=== PATIENT | female | born 1955 | race Caucasian/White ===

== ENCOUNTER 2016-10-31 09:50 | Outpatient (CLI) | payer MEDICARE | END 2016-10-31 09:51 | disposition home or self-care (01) | DX: M81.0 Age-related osteoporosis without current pathological fracture (principal); E55.9 Vitamin D deficiency, unspecified ==

== ENCOUNTER 2016-10-31 10:27 | Outpatient (CLI) | END 2016-10-31 10:28 | disposition home or self-care (01) ==

== ENCOUNTER 2016-12-02 08:00 | Outpatient (CLI) | payer MEDICARE | END 2016-12-02 23:59 | disposition home or self-care (01) | DX: M19.042 Primary osteoarthritis, left hand (principal); M19.032 Primary osteoarthritis, left wrist; M06.9 Rheumatoid arthritis, unspecified ==

== ENCOUNTER 2016-12-17 | Outpatient (CLI) | payer MEDICARE | END 2016-12-17 10:45 | disposition home or self-care (01) ==

== ENCOUNTER 2017-03-28 08:42 | Outpatient (CLI) | payer MEDICARE ==
--- NOTE | 2017-03-31 15:57 | Mammography Report ---
DIGITAL SCREENING MAMMOGRAM: 03/28/2017 CLINICAL INDICATION: A 61-year-old with family history of breast cancer, history of benign right deborah ast biopsy for screening. COMPARISON: 03/2015, 02/2014, 01/2013, 05/2012, 12/2011, 12/2010, 11/2009. TECHNIQUE: Routine CC and MLO projections were obtained of the breasts. FINDINGS: The breasts demonstrate fatty replacement bilaterally. Post-biopsy changes in the right u pper outer posterior breast are stable. No suspicious masses, clustered microcalcifications, or padma ons of architectural distortion are identified. IMPRESSION: BENIGN FINDINGS. RECOMMENDATION: Routine annual screening unless otherwise clinically indicated. BIRADS CATEGORY 2 - BENIGN FINDINGS. STANDARD QUALIFYING STATEMENTS 1. This examination was reviewed with the aid of Computer-Aided Detection (CAD). 2. A negative or benign imaging report should not delay biopsy if clinically suspicious findings are present. Consider surgical consultation if warranted. More than 5% of cancers are not identified by i maging. 3. Dense breasts may obscure an underlying neoplasm. JOB #: [id number] EXT JOB #:[id number]
== END 2017-03-28 08:43 | disposition home or self-care (01) ==
LOC: DI 08:42
PROVIDERS: ATTEND Physician Assistant
DX: Z12.31 Encounter for screening mammogram for malignant neoplasm of breast (principal); Z80.3 Family history of malignant neoplasm of breast
CPT/HCPCS: 77067

== ENCOUNTER 2017-06-05 17:31 | Outpatient (CLI) | payer MEDICARE ==
--- NOTE | 2017-06-05 18:05 | XRAY Preliminary Report ---
Exam: XR Hip w/Pelvis 2-3V LT IMPRESSION: Marked left hip degenerative joint disease similar to previous exam. [facility] SITE ID: [id number]
--- NOTE | 2017-06-05 18:08 | XRAY Report ---
EXAM: LEFT HIP AND PELVIS RADIOGRAPHY EXAM DATE: 06/05/2017 05:53 PM. HISTORY: LEFT HIP PAIN. COMPARISONS: 15 February 2016. TECHNIQUE: 1 view of the pelvis and 1 view of the hip. FINDINGS: Bones: No definite fracture or other bone lesion. Joints: Marked left hip joint space narrowing with prominent osteophytes and slight lateral subluxati on versus widened teardrop due to joint effusion. Minimal joint space narrowing in the right hip. Unr emarkable SI joints and pubic symphysis. Degenerative joint and disk disease in lower lumbar spine. Soft Tissues: Large amount of stool. IMPRESSION: Marked left hip degenerative joint disease similar to previous exam. [facility] Referring Provider Line: [phone] SITE ID: [id number]
== END 2017-06-05 17:32 | disposition home or self-care (01) ==
LOC: DI 17:31
PROVIDERS: ATTEND Physician Assistant
DX: M25.552 Pain in left hip (principal); M16.12 Unilateral primary osteoarthritis, left hip

== ENCOUNTER 2017-08-12 12:55 | Outpatient (CLI) | payer MEDICARE ==
[2017-08-12 18:17] LABS: BILIRUBIN,URINE NEGATIVE (NEGATIVE)
[2017-08-12 18:30] LABS: UA CHARGE (STRIP ONLY) YES; UR CULTURE IF IND NOT INDICATED
== END 2017-08-12 12:56 | disposition home or self-care (01) ==
LOC: LAB.F 12:55
PROVIDERS: ATTEND Physician Assistant
DX: R30.0 Dysuria (principal)
CPT/HCPCS: 81001; 81003; 87086

== ENCOUNTER 2017-09-16 23:29 | Observation (INO) | payer MEDICARE ==
--- NOTE | 2017-09-16 23:48 | ED Physician Documentation ---
PD HPI CHEST PAIN - Stated complaint Stated Complaint: CHEST PAIN - Chief complaint Chief Complaint: Cardiac - History obtained from History obtained from: Patient - History of Present Illness Timing - onset: How many days ago (She has had left-sided chest pain radiating into the left shoulder and back intermittently for the last 3 or 4 days and has become stronger and more consistent the last few hours this evening. It was not strictly exertionally related. There is no pleuritic component though. She has not had any cough nor shortness of breath.) Timing - onset during: Light activity Timing - details: Still present (stronger and more consistent the past few hours this evening.), Intermittant Quality: Pressure, Aching. No: Sharp, Stabbing Location: Left chest Radiation: Back, Left upper extremity. No: Jaw Improved by: No: Rest (is having it at rest at times as well, particularly this evening.) Worsened by: Exertion. No: Inspiration, Movement, Palpation Associated symptoms: General Weakness. No: Shortness of air, Diaphoresis, Nausea, Feeling faint / dizzy, Palpitations, Cough Similar symptoms before: Diagnosis (had enlarged heart and angina years ago, which improved. Sees Dr. Wesley, [facility]. Had ECHO done in his office in the past year which was okay. Had stress test many years ago. No recent chest pain problems.) Recently seen: Not recently seen Review of Systems Constitutional: denies: Fever, Chills, Myalgias Nose: denies: Rhinorrhea / runny nose, Congestion Throat: denies: Sore throat Cardiac: reports: Chest pain / pressure. denies: Palpitations, Pedal edema, Calf pain Respiratory: denies: Dyspnea, Cough GI: denies: Abdominal Pain, Nausea, Vomiting : denies: Dysuria, Frequency Skin: denies: Rash, Lesions Musculoskeletal: reports: Extremity pain (severe arthritis, with joint pains commonly. No chest wall component in the past.) Neurologic: reports: Generalized weakness. 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 HEENT: Tonsil/Adenoidectomy - Present Medications Home Medications: Ambulatory Orders Medication Instructions Recorded Confirmed HYDROcodone/ACET 10/325 [[place] 10 1 each PO Q4-6H PRN 11/01/13 11/01/13 mg/325 mg] Morphine Sulfate [Ms Contin] 15 mg PO 11/01/13 11/01/13 Prednisolone 5 mg PO DAILY 11/01/13 11/01/13 Tofacitinib Citrate [Xeljanz] 5 mg PO DAILY 11/01/13 11/01/13 - Allergies Allergies/Adverse Reactions: Allergies Allergy/AdvReac Type Severity Reaction Status Date / Time tetanus toxoid, adsorbed AdvReac Intermediate Edema Verified 11/01/13 23:01 - Social History Does the pt smoke?: Yes Smoking Status: Current every day smoker Does the pt drink ETOH?: No - Family History Family history: reports: CAD - Immunizations Immunizations are current?: Yes - POLST Patient has POLST: No PD ED PE NORMAL - Vitals Vital signs reviewed: Yes - General General: Alert and oriented X 3, No acute distress, Well developed/nourished - HEENT HEENT: Moist mucous membranes, Pharynx benign - Neck Neck: Supple, no meningeal sign, No adenopathy, No JVD - Cardiac Cardiac: RRR, No murmur - Respiratory Respiratory: Clear bilaterally, Other (no chestwall tenderness) - Abdomen Abdomen: Soft, Non tender - Female Female : Deferred - Rectal Rectal: Deferred - Back Back: No CVA TTP - Derm Derm: Normal color, Warm and dry - Extremities Extremities: No deformity, No tenderness to palpate, Normal ROM s pain, No edema , No calf tenderness / cord, Other (extremity changes c/w arthritis noted in hands. ) - Neuro Neuro: Alert and oriented X 3, No motor deficit, Normal speech - Psych Psych: Normal mood. No: Normal affect (somewhat tearful and sad, minimizing symptoms. ) Results - Vitals Vitals: Vital Signs - 24 hr 09/16/17 09/17/17 09/17/17 23:47 00:42 00:51 Temperature 36.5 C Heart Rate 98 62 71 Respiratory 18 17 17 Rate Blood Pressure 155/130 H 151/82 H 135/70 H O2 Saturation 98 97 99 09/17/17 01:03 Temperature Heart Rate 61 Respiratory 17 Rate Blood Pressure 118/65 O2 Saturation 97 Oxygen O2 Source Room air - EKG (time done) 23:44 Rate: Rate (enter#) (83) Rhythm: NSR [place]: Normal Intervals: Normal WI QRS: Normal Ischemia: Normal ST segments, ST depression (laterally). No: ST elevation c/w ischemia Compare to prior EKG: Old EKG unavailable - Labs Labs: Laboratory Tests 09/17/17 09/17/17 09/17/17 00:55 00:55 00:55 WBC 4.2 L RBC 4.14 L Hgb 12.4 Hct 35.8 L MCV 86.5 MCH 30.1 MCHC 34.8 RDW 15.4 H Plt Count 174 MPV 8.2 Neut # 2.3 Lymph # 1.3 L [place] # 0.4 Eos # 0.1 Baso # 0.0 Absolute Nucleated RBC 0.00 Nucleated RBC % 0.0 Sodium 138 Potassium 2.6 L Chloride 99 L Carbon Dioxide 30 Anion Gap 9.0 BUN 17 Creatinine 0.7 Estimated GFR (MDRD) 85 L Glucose 102 H Calcium 9.1 Magnesium 1.8 Total Bilirubin 0.5 AST 24 ALT 16 Alkaline Phosphatase 78 Troponin I < 0.04 Total Protein 6.6 L Albumin 3.5 Globulin 3.1 Albumin/Globulin Ratio 1.1 Lipase 49 - Rads (name of study) chest Radiology: Prelim report reviewed (normal) PD MEDICAL DECISION MAKING - ED course Complexity details: reviewed results (Initial troponin is normal. ECG has mild possible ischemic changes laterally. I feel she needs to have evaluation for GA and unstable angina with serial ECG/troponin and stress testing. ), re- evaluated patient (pressure feeling improved with NTG x 1, will give repeated doses. ), considered differential, d/w patient, d/w portrait consultant (Dr. Montiel, Hospitalist) Departure - Departure Disposition: ED Place in Observation Clinical Impression: Chest pain, rule out acute myocardial infarction Chest pain Qualifiers: Chest pain type: precordial pain Qualified Code(s): R07.2 - Precordial pain Condition: Stable Record reviewed to determine appropriate education?: Yes
[2017-09-17] MEDS ORDERED: ASPIRIN CHEW 81 MG TABLET PO STA (00:41)
[2017-09-17] MEDS ORDERED: NITROGLYCERIN SL 0.4 MG TABLET SL STA ×2 (00:41→01:40)
[2017-09-17] MEDS ORDERED: NITROGLYCERIN SL 0.4 MG TABLET SL ONE (00:50)
[2017-09-17] MEDS ORDERED: ASPIRIN CHEW 81 MG TABLET ONE (00:50)
[2017-09-17 01:05] LABS: BASOPHILS % (AUTO) 0.9 %; EOSINOPHILS # (AUTO) 0.1 10^3/uL (0.0-0.7); EOSINOPHILS % (AUTO) 2.5 %; HCT - HEMATOCRIT 35.8 % (37.0-47.0); HGB - HEMOGLOBIN 12.4 g/dL (12.0-16.0); LYMPHOCYTES # (AUTO) 1.3 10^3/uL (1.5-3.5); LYMPHOCYTES % (AUTO) 31.7 %; MEAN CORPUSCULAR HEMOGLOBIN 30.1 pg (27.0-31.0); MEAN CORPUSCULAR HGB CONC 34.8 g/dL (32.0-36.0); MEAN CORPUSCULAR VOLUME 86.5 fL (81.0-99.0); MEAN PLATELET VOLUME 8.2 fL (7.9-10.8); MONOCYTES # (AUTO) 0.4 10^3/uL (0.0-1.0); MONOCYTES % (AUTO) 8.8 %; NEUTROPHILS # (AUTO) 2.3 10^3/uL (1.5-6.6); NEUTROPHILS % (AUTO) 56.1 %; RED BLOOD COUNT 4.14 10^6/uL (4.20-5.40); RED CELL DISTRIBUTION WIDTH 15.4 % (12.0-15.0); UNCORRECTED WHITE BLOOD COUNT 4.2 x10^3/uL; WHITE BLOOD COUNT 4.2 x10^3/uL (4.8-10.8)
[2017-09-17 01:14] LABS: ALBUMIN/GLOBULIN RATIO 1.1 (1.0-2.2); BILIRUBIN,TOTAL 0.5 mg/dL (0.2-1.0); CALCIUM 9.1 mg/dL (8.5-10.3); CREATININE 0.7 mg/dL (0.4-1.0); MAGNESIUM 1.8 mg/dL (1.7-2.8); POTASSIUM 2.6 mmol/L (3.5-5.0); TOTAL PROTEIN 6.6 g/dL (6.7-8.2)
[2017-09-17] MEDS ORDERED: POTASSIUM BICARB 25 MEQ TABLET PO STA (01:19)
--- NOTE | 2017-09-17 01:23 | XRAY Preliminary Report ---
Exam: XR CHEST 1 VIEW IMPRESSION: 1. No acute abnormality seen in the chest. [facility] SITE ID: [id number]
--- NOTE | 2017-09-17 01:26 | XRAY Report ---
EXAM: CHEST RADIOGRAPHY EXAM DATE: 09/17/2017 01:06 AM. CLINICAL HISTORY: Chest pressure tonight. COMPARISON: 04/11/2016. TECHNIQUE: 1 view. FINDINGS: Lungs/Pleura: No alveolar consolidation or pleural effusion. No pneumothorax. Mediastinum: Heart size is normal. Aortic atherosclerosis. Other: None. IMPRESSION: 1. No acute abnormality seen in the chest. [facility] Referring Provider Line: [phone] SITE ID: [id number]
[2017-09-17] MEDS ORDERED: POTASSIUM BICARB 25 MEQ TABLET PO ONE (01:37)
[2017-09-17] MEDS ORDERED: MORPHINE 2 MG/ML SYRINGE IVP PRN (01:47)
[2017-09-17] MEDS ORDERED: SODIUM CHLORIDE FLUSH 0.9% 10 ML SYRINGE IVP PRN (01:47)
[2017-09-17] MEDS ORDERED: HYDROcod/ACETAM 10 MG/325 MG TABLET PO PRN ×2 (01:47→10:18)
[2017-09-17] MEDS ORDERED: HYDROcod/ACETAM 5/325 MG TABLET PO PRN (01:47)
[2017-09-17] MEDS ORDERED: ACETAMINOPHEN 325 MG TABLET PO PRN (01:47)
[2017-09-17] MEDS ORDERED: ONDANSETRON 4 MG/2 ML VIAL IVP PRN (01:47)
[2017-09-17] MEDS ORDERED: NITROGLYCERIN SL 0.4 MG TABLET SL PRN (01:47)
[2017-09-17] MEDS ORDERED: ZOLPIDEM 5 MG TABLET PO PRN (01:47)
[2017-09-17] MEDS ORDERED: PROCHLORPERAZINE 10 MG/2 ML VIAL IVP PRN (01:47)
[2017-09-17] MEDS ORDERED: SODIUM CHLORIDE 0.9% 1,000 ML IV SCH (02:00)
[2017-09-17] MEDS ORDERED: POTASSIUM CHLORIDE 20 MEQ TABLET PO SCH (02:21)
--- NOTE | 2017-09-17 02:25 | HISTORY & PHYSICAL EXAMINATION ---
Chief Complaint - Chief Complaint Chief Complaint: Chest pressure History of Present Illness - Admitted From Admitted From:: Emergency department - History Obtained From Records Reviewed: Yes History obtained from: Patient Exam Limitations: None - History of Present Illness HPI Comment/Other: Patient is a 62-year-old female with a past medical history significant for rheumatoid arthritis, tobacco abuse, unspecified valvular heart disease and history of Takotsubo's cardiomyopathy who presented to the emergency department with a chief complaint of chest pressure. The patient states that she has been having symptoms of chest pressure off and on since for the past month. She states usually the pressure only lasts for a few minutes and then resolves on its own. She states that symptoms can come on while she is at rest or she is moving around. She denies any associated nausea, vomiting, diaphoresis, palpitations or shortness of air. The patient states that one month ago she stopped taking her rheumatoid arthritis medication in preparation for surgery of her hands and wrists. She states that ever since she stopped she has noticed that she has been having chest pressure off and on. She states that this evening the pressure was worse and lasted longer than normal. She states that this time the chest pressure lasted for a few hours. She states that she has not been feeling well for the last week and has been having off and on fevers. The patient was not sure if this all was related to her being off of her rheumatoid arthritis medications but given that this pressure was occurring in her chest she was concerned enough that she came into the emergency department today. Patient denies any headaches, blurred vision, runny nose, sore throat, nasal congestion, neck pain, difficulty swallowing, orthopnea, PND, increased lower extremity swelling, abdominal pain, diarrhea, constipation, urinary urgency, urinary frequency, dysuria, muscle aches, neck stiffness, back pain, recent unintentional weight loss, changes in appetite or any focal neurologic deficits. The patient does admit to chronic joint pain in her hands and her feet. She states it is much worse in her hands and she does take p.o. morphine at home to deal with her pain. On presentation to the emergency department the patient was afebrile she was mildly tachycardic and hypertensive however this improved with time in the emergency department. The patient was not in any respiratory distress. The patient's lab work did reveal a low potassium of 2.6 but otherwise showed a normal BNP and a negative troponin. The patient's WBC the patient's CBC did reveal a mild leukopenia. The patient did undergo a chest x-ray in the emergency department which showed no acute abnormality in the chest. The patient's EKG did show some ST depressions in the lateral leads concerning for possible ischemia. There was no previous EKG for comparison. Given the patient 's chest pressure and EKG changes it was felt most appropriate to place the patient in observation for chest pain rule out. The patient will undergo serial troponins, telemetry monitoring and a echocardiogram in the morning. The patient will also be scheduled for a nuclear stress test in the morning. 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 Social History Notes: The patient is originally from [place], [place]. She moved would [facility] 35 years ago. She lives in [place] with her . She has been to her for 40 years. They have 2 children together both boys. The patient does have disability secondary to her rheumatoid arthritis. 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 She is able to ambulate without any assistance device and is still fully independent. The patient smokes half a pack a day she previously smoked more than half a pack a day and has been smoking for over 40 years. The patient does not drink alcohol or use any illicit drugs. - Substance History Tobacco Details: Cigarettes - POLST Patient has POLST: No POLST Status: Full Code Meds/Allgy - Home Medications Home Medications: Ambulatory Orders Medication Instructions Recorded Confirmed HYDROcodone/ACET 10/325 [[place] 10 1 each PO Q4-6H PRN 11/01/13 11/01/13 mg/325 mg] Prednisolone 5 mg PO DAILY 11/01/13 11/01/13 Tofacitinib Citrate [Xeljanz] 5 mg PO DAILY 11/01/13 11/01/13 Morphine Sulfate [Ms Contin] 100 mg PO TID 09/17/17 09/17/17 - Allergies Allergies/Adverse Reactions: Allergies Allergy/AdvReac Type Severity Reaction Status Date / Time tetanus toxoid, adsorbed AdvReac Intermediate Edema Verified 11/01/13 23:01 Review of Systems - Other Findings Other Findings: A comprehensive review of systems was performed the pertinent positives and negatives are stated above in the HPI and the remainder of the review of systems is negative. Exam - Vital Signs Reviewed Vital Signs: Yes Vital Signs: Vital Signs x48h Temp Pulse Resp BP Pulse Ox 09/17/17 02:12 67 17 110/58 L 100 09/17/17 01:49 56 L 18 107/61 98 09/17/17 01:03 61 17 118/65 97 09/17/17 00:51 71 17 135/70 H 99 09/17/17 00:42 62 17 151/82 H 97 09/16/17 23:47 36.5 C 98 18 155/130 H 98 - Physical Exam General Appearance: positive: No acute distress, Alert, Other (A lot of wrinkles appears older than her stated age) Eyes Bilateral: positive: Normal inspection, PERRL, EOMI, No lid inflammation, Conjunctivae nml, No scleral icterus ENT: positive: ENT inspection nml, Pharynx nml, Dry mucous membranes. negative : Purulent nasal drainage, Pharyngeal erythema, Oral lesions Neck: positive: Nml inspection, Thyroid nml, No JVD, Trachea midline. negative : Thyromegaly, Lymphadenopathy (R), Lymphadenopathy (L), Stiff neck, Carotid bruit, Tracheal deviation Respiratory: positive: Chest non-tender, No respiratory distress, Breath sounds nml. negative: Wheezes, Rales, Rhonchi Cardiovascular: positive: Regular rate & rhythm, No gallop, Systolic murmur Peripheral Pulses: positive: 2+ Abdomen: positive: Non-tender, No organomegaly, Nml bowel sounds, No distention. negative: Guarding, Rebound, Hepatomegaly Back: positive: Nml inspection. negative: CVA tenderness (R), CVA tenderness (L ) Skin: positive: Color nml, No rash, Warm. negative: Cyanosis, Pallor Extremities: positive: Other (Severe rheumatoid arthritis changes of hands and wrists bilaterally.) Neurologic/Psychiatric: positive: Oriented x3, CN's nml (2-12), Motor nml, Sensation nml, Mood/affect nml Conclusion/Plan - Problem List (1) Chest pain Conclusion/Plan: Patient presented with chest pressure that has been going on off and on for about a month but became significantly worse this evening. Patient states that symptoms occurred at rest with no associated symptoms. Symptoms lasted longer and were more severe than normal. Patient has risk factors of age and smoking. Patient had a negative troponin but did have ST depressions in the lateral leads on EKG. Patient placed in observation for chest pain rule out Plan: Serial troponins every 6 hours 2 Telemetry monitoring Echocardiogram Aspirin and Lipitor Lipid profile Nuclear stress test in the morning N.p.o. Qualifiers: Chest pain type: precordial pain Qualified Code(s): R07.2 - Precordial pain (2) Hypokalemia Conclusion/Plan: Patient presented with a potassium of 2.6. Looking back the patient's baseline potassium is usually in the low threes low normal. Patient does take potassium every other day. Patient denies any vomiting or diarrhea recently. Is unclear as to why the patient's potassium is decreased today. Given that patient was hypertensive on presentation and does have low potassium we will check cortisol and aldosterone/renin activity. Plan: Replace potassium with p.o. and IV potassium Monitor potassium (3) Rheumatoid arthritis Conclusion/Plan: Patient has severe rheumatoid arthritis with severe changes in her hands. The patient has been on numerous treatments in the past none of which has given her significant relief. The patient currently is off of treatment pending surgery. The patient does use extended release morphine and [place] for symptomatic control. Plan: We will continue patient's home dose of morphine and [place]. Qualifiers: Rheumatoid arthritis location: foot Laterality: bilateral (4) Prophylactic use of low molecular weight heparin for venous thromboembolism Conclusion/Plan: Patient will be placed on Lovenox for DVT prophylaxis while she is hospitalized. - Lab Results Lab results reviewed: Yes Fish Bones: 09/17/17 00:55 09/17/17 00:55 - Diagnostic Imaging Results Diagnostic Imaging Results: positive: Final report reviewed Diagnostic Imaging Results Comments: Chest x-ray Impression: No acute abnormality seen in the chest - EKG Results EKG Interpreted Independently: Yes EKG Findings: ST depressions in the lateral leads. Sinus rhythm Issues/Core Measures - Anticipated LOS Anticipated Stay Length: Less than 2 midnights - DVT/VTE - Prophylaxis VTE/DVT Prophylaxis med ordered at admit?: Yes
[2017-09-17] MEDS: NS W/20 MEQ KCL 1,000 ML IV SCH ×2 (03:21→11:04)
[2017-09-17] MEDS ORDERED: MORPHINE SULFATE 100 MG PO SCH (06:00)
[2017-09-17] MEDS ORDERED: SODIUM CHLORIDE FLUSH 0.9% 10 ML SYRINGE IVP SCH (06:00)
[2017-09-17 08:34] LABS: BASOPHILS % (AUTO) 0.7 %; EOSINOPHILS # (AUTO) 0.1 10^3/uL (0.0-0.7); EOSINOPHILS % (AUTO) 2.7 %; HCT - HEMATOCRIT 31.3 % (37.0-47.0); HGB - HEMOGLOBIN 10.9 g/dL (12.0-16.0); LYMPHOCYTES # (AUTO) 1.1 10^3/uL (1.5-3.5); LYMPHOCYTES % (AUTO) 33.2 %; MEAN CORPUSCULAR HEMOGLOBIN 30.2 pg (27.0-31.0); MEAN CORPUSCULAR HGB CONC 34.7 g/dL (32.0-36.0); MEAN CORPUSCULAR VOLUME 86.8 fL (81.0-99.0); MEAN PLATELET VOLUME 8.4 fL (7.9-10.8); MONOCYTES # (AUTO) 0.3 10^3/uL (0.0-1.0); MONOCYTES % (AUTO) 9.8 %; NEUTROPHILS # (AUTO) 1.8 10^3/uL (1.5-6.6); NEUTROPHILS % (AUTO) 53.6 %; RED BLOOD COUNT 3.61 10^6/uL (4.20-5.40); RED CELL DISTRIBUTION WIDTH 14.8 % (12.0-15.0); UNCORRECTED WHITE BLOOD COUNT 3.4 x10^3/uL; WHITE BLOOD COUNT 3.4 x10^3/uL (4.8-10.8)
[2017-09-17] MEDS ORDERED: ASPIRIN EC 81 MG TABLET PO SCH (09:00)
[2017-09-17] MEDS ORDERED: POLYETHYLENE GLYCOL 3350 17 GM PACKET PO SCH (09:00)
[2017-09-17] MEDS ORDERED: TOFACITINIB CITRATE 5 MG PO SCH (09:00)
[2017-09-17] MEDS ORDERED: ENOXAPARIN 40 MG/0.4 ML SYRINGE SUBQ SCH (09:00)
[2017-09-17] MEDS ORDERED: FAMOTIDINE 20 MG TABLET PO SCH (09:00)
[2017-09-17] MEDS ORDERED: predniSONE 5 MG TABLET PO SCH (11:00)
[2017-09-17] MEDS ORDERED: REGADENOSON 0.4 MG/5 ML SYRINGE IVP ONE (11:54)
--- NOTE | 2017-09-17 12:52 | Discharge Plan ---
Discharge Plan Disposition: 01 Home, Self Care Condition: Stable Diet: Cardiac Activity Restrictions: Activity as Tolerated Shower Restrictions: No Driving Restrictions: No Additional Instructions or Follow Up instructions: You were placed in the hospital because of chest pain that had been present off and for a month but worsened over the last day before coming here. While here the blood tests to make sure you were not having a heart attack were low and meant no acute heart attack right now. You were able to do a nuclear medicine stress test right before you left and the EKG portion of the test continues to be negative for the changes of a blocked heart artery BUT the reading for the nuclear medicine dye study of the heart if still pending. Make sure you and your primary care provider go over those results before you have surgery. We will not be sending you home on new medications. Please make an appointment to see your primary care provider in the next week. No Smoking: If you smoke, Please STOP! Call for help. Follow-up with: Heena Martines PA-C [Primary Care Provider] -
[2017-09-17 14:09] LABS: BILIRUBIN,TOTAL 0.5 mg/dL (0.2-1.0); BUN - BLOOD UREA NITROGEN 14 mg/dL (6-20); CALCIUM 8.7 mg/dL (8.5-10.3); CARBON DIOXIDE - CO2 28 mmol/L (21-32); CHLORIDE 102 mmol/L (101-111); CHOL/HDL RATIO 4.5 (<4.4); CHOLESTEROL 154 mg/dL; CREATININE 0.5 mg/dL (0.4-1.0); GFR - MDRD 125 (>89); GLUCOSE 78 mg/dL (70-100); HDL CHOLESTEROL 34 mg/dL; LDL/HDL RATIO 2.3 (<4.4); POTASSIUM 3.5 mmol/L (3.5-5.0); SODIUM 139 mmol/L (135-145); TOTAL PROTEIN 5.8 g/dL (6.7-8.2); TRIGLYCERIDES 206 mg/dL; VLDL CHOLESTEROL 41 mg/dL
[2017-09-17 15:55] VITALS: BP 120/58
--- NOTE | 2017-09-17 16:04 | Nuclear Medicine Prelim Report ---
Exam: NM MYOCARDIAL PERFUSION STR/RST IMPRESSION: 1. No convincing reversible perfusion defects. Mild apical thinning. 2. Left ventricular ejection fraction of 51%. 3. Normal segmental and global wall motion. 4. Normal left ventricular cavity size, no change with stress. [facility] The call report notification system was initiated by Dr. Aditya Mars at 15:57 hrs on 09/17/17. The above findings were discussed with Dr. Oscar by Dr. Aditya Mars at 16:02 hrs on 09/17/17. SITE ID: [id number]
--- NOTE | 2017-09-17 16:07 | Nuclear Medicine Report ---
EXAM: SINGLE-ISOTOPE PHARMACOLOGICAL STRESS TEST WITH REGADENOSON. SINGLE-ISOTOPE AND ONE-DAY REST/STRESS M YOCARDIAL PERFUSION SCANS WITH TOMOGRAPHIC IMAGING, QUANTITATIVE ANALYSIS, WALL MOTION ANALYSIS AND C ALCULATION OF EJECTION FRACTION. EXAM DATE: 09/17/2017 03:34 PM. CLINICAL HISTORY: Chest pain . COMPARISON: None. TECHNIQUE: After the intravenous administration of 10.1 mCi of Tc-99m sestamibi, a rest myocardial perfusion sca n was done with tomography. Motion correction was applied when appropriate. A pharmacological stress was performed with the infusion of 0.4 mg regadenoson per protocol. Accordin g to protocol, 33 mCi of Tc-99m sestamibi was injected for stress myocardial perfusion scan. Motion c orrection was applied when appropriate. Gated tomographic images were obtained for wall motion analysis and computation of left ventricular e jection fraction. FINDINGS: There is apical thinning noted. No convincing reversible perfusion defects. Wall motion analysis demonstrates no focal wall motion abnormality. The left ventricular end-diastolic volume is 72 cc. The left ventricular end-systolic volume is 35 cc . The left ventricular ejection fraction is calculated to be 51%. IMPRESSION: 1. No convincing reversible perfusion defects. Mild apical thinning. 2. Left ventricular ejection fraction of 51%. 3. Normal segmental and global wall motion. 4. Normal left ventricular cavity size, no change with stress. [facility] The call report notification system was initiated by Dr. Aditya Mars at 15:57 hrs on 09/17/17. The above findings were discussed with Dr. Oscar by Dr. Aditya Mars at 16:02 hrs on 09/17/17. Referring Provider Line: [phone] SITE ID: [id number]
[2017-09-17] MEDS ORDERED: ATORVASTATIN 40 MG TABLET PO SCH (21:00)
--- NOTE | 2017-09-18 06:51 | DISCHARGE SUMMARY ---
DATE OF ADMISSION: 09/17/2017 DATE OF DISCHARGE: 09/17/2017 PRIMARY CARE PROVIDER: Heena Martines PA-C DISCHARGE DIAGNOSES 1. Chest pain. 2. Hypokalemia. 3. Rheumatoid arthritis. PRINCIPAL PROCEDURES 1. Cardiac stress test with EKG portion being negative. However, nuclear medicine studies are pending and must be followed up in the outpatient setting with primary care provider. Reading to be done by [facility]. 2. Serial cardiac enzymes all negative. 3. Cortisol level 12.8. HOSPITAL COURSE: The patient is a 62-year-old female who smokes and is in a postmenopausal status. Eliel stevenson also has significant history of Takotsubo cardiomyopathy, rheumatoid arthritis, and unspecified nelson vular heart disease. She has been having chest pain off and on for a month that lasts for a few minut es and then resolves on its own. Pain is at rest or with exertion and not changed by either status. T here has been no nausea, no diaphoresis, no palpitations, no shortness of breath. A month ago she sto pped taking her rheumatoid arthritis medication in preparation for surgery on her hands and wrists. E sarah since she stopped taking her medication, she has noticed she is having chest pressure off and on. On the evening of admission, chest pressure was worse and lasted longer than normal so she came to [facility] emergency room. Initial EKG shows normal sinus rhythm, nonspecific ST-T wave changes. She was norm otensive, afebrile. Chest x-ray negative for acute infiltrates and cardiac enzymes were negative. She was placed in observation for evaluation of her chest pain because of her risk factors for coronary artery disease. Over the course of her stay, cardiac enzymes were negative. Blood pressure remained stable. Oxygenati on remained stable. Stress test was done. Nuclear medicine imaging studies are pending at the time of discharge and will be followed up with her primary care provider. DISCHARGE PHYSICAL EXAMINATION VITAL SIGNS: She is discharged in stable condition with a temperature of 36.8, pulse 68, blood pressu re 107/58, respirations 16, 99% on room air. GENERAL: She is a middle-aged female who looks much, much older than stated age. No acute distress wi th a frowning, depressed facies. Voice is low and hoarse with slightly phlegmy cough. NECK: Supple with shotty adenopathy. LUNGS: Occasional rhonchi that clear with a deep cough, but no increased respiratory effort. No right ventricular lift. CARDIAC: She has a regular rate and rhythm with a systolic murmur. ABDOMEN: Soft, nontender. She has bilateral femoral bruits. EXTREMITIES: Unfortunately, her hands and feet are remarkably destroyed in the digits from her rheuma toid arthritis. 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 She is asked to follow up with Heena Martines in preparation for her surgery. She will need to have t he nuclear medicine imaging study reviewed before she goes to surgery. [facility] There have been no changes in her medications at discharge. JOB #: [id number] EXT JOB #:[id number]
[2017-09-21 15:11] LABS: ALDO/PRA RATIO 5.7 Ratio (0.9-28.9)
== END 2017-09-17 14:33 | disposition home or self-care (01) ==
LOC: ED 23:29 → OBS 09-17 01:47
PROVIDERS: ADMIT Internal Medicine; ATTEND Specialist
DX: R07.89 Other chest pain (principal); E87.6 Hypokalemia; M06.9 Rheumatoid arthritis, unspecified; Z86.79 Personal history of other diseases of the circulatory system; G89.29 Other chronic pain; Z78.0 Asymptomatic menopausal state; M19.90 Unspecified osteoarthritis, unspecified site; Z79.891 Long term (current) use of opiate analgesic; F17.210 Nicotine dependence, cigarettes, uncomplicated; I51.7 Cardiomegaly
CPT/HCPCS: 36415; 71010; 78452; 80053; 80061; 82088; 82533; 83690; 83735; 83880; 84244; 84484; 85025; 93005; 93017; 93306; 96360; 96361; 99284; 99285; A9270; A9500; G0378; J2785; J7512

== ENCOUNTER 2018-01-21 08:42 | Outpatient (CLI) | payer MEDICARE ==
[2018-01-21 17:28] LABS: BASOPHILS % (AUTO) 0.7 %; EOSINOPHILS # (AUTO) 0.2 10^3/uL (0.0-0.7); EOSINOPHILS % (AUTO) 3.1 %; HGB - HEMOGLOBIN 12.5 g/dL (12.0-16.0); LYMPHOCYTES # (AUTO) 1.4 10^3/uL (1.5-3.5); MEAN CORPUSCULAR HEMOGLOBIN 28.7 pg (27.0-31.0); MEAN CORPUSCULAR HGB CONC 32.5 g/dL (32.0-36.0); MEAN CORPUSCULAR VOLUME 88.3 fL (81.0-99.0); MONOCYTES # (AUTO) 0.3 10^3/uL (0.0-1.0); MONOCYTES % (AUTO) 5.6 %; NEUTROPHILS % (AUTO) 61.6 %; PLT - PLATELET COUNT 212 10^3/uL (130-450); RED BLOOD COUNT 4.35 10^6/uL (4.20-5.40); RED CELL DISTRIBUTION WIDTH 15.9 % (12.0-15.0); WHITE BLOOD COUNT 4.8 x10^3/uL (4.8-10.8)
[2018-01-21 17:51] LABS: ALBUMIN 3.5 g/dL (3.2-5.5); ALBUMIN/GLOBULIN RATIO 1.1 (1.0-2.2); ALKALINE PHOSPHATASE 81 IU/L (42-121); ALT ALANINE AMINOTRANSFERASE 23 IU/L (10-60); AST ASPARTATE AMINOTRANSFERASE 27 IU/L (10-42); BILIRUBIN,TOTAL 0.3 mg/dL (0.2-1.0); BUN - BLOOD UREA NITROGEN 16 mg/dL (6-20); CALCIUM 8.9 mg/dL (8.5-10.3); CARBON DIOXIDE - CO2 33 mmol/L (21-32); CHLORIDE 98 mmol/L (101-111); CHOL/HDL RATIO 4.2 (<4.4); CHOLESTEROL 187 mg/dL; CREATININE 0.6 mg/dL (0.4-1.0); GFR - MDRD 101 (>89); GLUCOSE 82 mg/dL (70-100); HDL CHOLESTEROL 45 mg/dL; LDL CHOLESTEROL,CALCULATED 90 mg/dL; SODIUM 139 mmol/L (135-145); TOTAL PROTEIN 6.8 g/dL (6.7-8.2); VLDL CHOLESTEROL 52 mg/dL
== END 2018-01-21 08:43 | disposition home or self-care (01) ==
LOC: LAB.F 08:42
PROVIDERS: ATTEND Physician Assistant
DX: M81.0 Age-related osteoporosis without current pathological fracture (principal); E78.5 Hyperlipidemia, unspecified; M06.89 Other specified rheumatoid arthritis, multiple sites; I10 Essential (primary) hypertension
CPT/HCPCS: 36415; 80053; 80061; 82306; 83721; 85025

== ENCOUNTER 2018-03-13 12:21 | Outpatient (CLI) | payer MEDICARE ==
--- NOTE | 2018-03-13 16:18 | XRAY Report ---
TWO VIEW ABDOMEN: 03/13/2018 CLINICAL INDICATION: Pain. FINDINGS: Supine and upright views of the abdomen demonstrate a normal bowel gas pattern. Radiodensity in the upper abdomen likely represents an ingested pill. No definite nephrolithiasis is seen. Osseous structures demonstrate degenerative changes. IMPRESSION: NO EVIDENCE OF BOWEL OBSTRUCTION OR PERFORATION. TD: 03/13/2018 13:17
== END 2018-03-13 12:22 | disposition home or self-care (01) ==
LOC: DI 12:21
PROVIDERS: ATTEND Internal Medicine
DX: R10.11 Right upper quadrant pain (principal)
CPT/HCPCS: 74019

== ENCOUNTER 2018-03-31 11:28 | Outpatient (CLI) | payer MEDICARE ==
--- NOTE | 2018-04-02 17:37 | Mammography Report ---
DIGITAL BILATERAL DIAGNOSTIC MAMMOGRAM AND BILATERAL BREAST ULTRASOUND: 2017 HISTORY: Bilateral lateral breast pain, sister with breast cancer at age 48. BILATERAL MAMMOGRAPHY TECHNIQUE: Bilateral digital CC, MLO, and ML projections. COMPARISON: 03/28/2017, 04/21/2015, 03/07/2014, 01/27/2013, 06/25/2012, 2011, 08/28/2011, and 01/29/2011. FINDINGS: There is extensive fatty replacement of the breast tissue. There is no dominant mass, architectural distortion, skin thickening, suspicious microcalcifications or significant interval change. BILATERAL BREAST ULTRASOUND TECHNIQUE: Real-time scanning by the pension agent with saved static images reviewed. FINDINGS: The lateral breast in the area of pain was scanned bilaterally. There is no evidence of a cystic or solid mass, abnormal collections, distortion of fat planes or other abnormality. IMPRESSION: NEGATIVE BILATERAL MAMMOGRAPHY AND NEGATIVE BILATERAL BREAST ULTRASOUND. RECOMMENDATION: SUGGEST RETURN TO ROUTINE SCREENING IN 12 MONTHS AND CLINICAL FOLLOW-UP OF PAIN. BIRADS category 1 - NEGATIVE. STANDARD QUALIFYING STATEMENTS 1. This examination was reviewed with the aid of Computed-Aided Detection (CAD) . 2. A negative or benign imaging report should not delay biopsy if clinically suspicious findings are present. Consider surgical consultation if warranted. More than 5% of cancers are not identified by imaging. 3. Dense breasts may obscure an underlying neoplasm. BIRADS category 1 - NEGATIVE. TD: 03/31/2018 14:40 [place]
== END 2018-03-31 11:29 | disposition home or self-care (01) ==
LOC: DI 11:28
PROVIDERS: ATTEND Obstetrics & Gynecology
DX: N64.4 Mastodynia (principal); Z80.3 Family history of malignant neoplasm of breast
CPT/HCPCS: 76642; 77066

== ENCOUNTER 2018-04-06 09:25 | Outpatient (CLI) | payer MEDICARE ==
[2018-04-06 18:26] LABS: BASOPHILS % (AUTO) 0.7 %; EOSINOPHILS # (AUTO) 0.1 10^3/uL (0.0-0.7); EOSINOPHILS % (AUTO) 2.1 %; HGB - HEMOGLOBIN 13.1 g/dL (12.0-16.0); LYMPHOCYTES # (AUTO) 1.1 10^3/uL (1.5-3.5); MEAN CORPUSCULAR HEMOGLOBIN 29.9 pg (27.0-31.0); MEAN CORPUSCULAR HGB CONC 32.9 g/dL (32.0-36.0); MEAN CORPUSCULAR VOLUME 91.1 fL (81.0-99.0); MEAN PLATELET VOLUME 9.3 fL (7.9-10.8); MONOCYTES # (AUTO) 0.3 10^3/uL (0.0-1.0); MONOCYTES % (AUTO) 7.3 %; NEUTROPHILS # (AUTO) 2.9 10^3/uL (1.5-6.6); NEUTROPHILS % (AUTO) 64.9 %; PLT - PLATELET COUNT 173 10^3/uL (130-450); RED BLOOD COUNT 4.39 10^6/uL (4.20-5.40); RED CELL DISTRIBUTION WIDTH 15.9 % (12.0-15.0); WHITE BLOOD COUNT 4.5 x10^3/uL (4.8-10.8)
[2018-04-06 18:50] LABS: ALBUMIN 3.4 g/dL (3.2-5.5); ALBUMIN/GLOBULIN RATIO 0.9 (1.0-2.2); BILIRUBIN,TOTAL 0.7 mg/dL (0.2-1.0); CALCIUM 9.3 mg/dL (8.5-10.3); CREATININE 0.7 mg/dL (0.4-1.0)
== END 2018-04-06 09:26 | disposition home or self-care (01) ==
LOC: LAB.F 09:25
PROVIDERS: ATTEND Physician Assistant Medical
DX: R53.83 Other fatigue (principal); E87.6 Hypokalemia
CPT/HCPCS: 36415; 80053; 84443; 85025

== ENCOUNTER 2018-05-19 10:10 | Outpatient (CLI) | payer MEDICARE | END 2018-05-19 10:11 | disposition home or self-care (01) | LOC: LAB.F 10:10 | PROVIDERS: ATTEND Physician Assistant Medical | DX: E55.9 Vitamin D deficiency, unspecified (principal) | CPT/HCPCS: 36415; 82306 ==

== ENCOUNTER 2018-07-23 11:25 | Outpatient (CLI) | payer MEDICARE ==
[2018-07-23 17:41] LABS: BASOPHILS % (AUTO) 0.5 %; EOSINOPHILS # (AUTO) 0.1 10^3/uL (0.0-0.7); EOSINOPHILS % (AUTO) 1.2 %; HGB - HEMOGLOBIN 13.1 g/dL (12.0-16.0); LYMPHOCYTES % (AUTO) 18.4 %; MEAN CORPUSCULAR HEMOGLOBIN 30.8 pg (27.0-31.0); MEAN CORPUSCULAR HGB CONC 33.8 g/dL (32.0-36.0); MEAN PLATELET VOLUME 9.4 fL (7.9-10.8); MONOCYTES # (AUTO) 0.3 10^3/uL (0.0-1.0); MONOCYTES % (AUTO) 5.4 %; NEUTROPHILS # (AUTO) 3.9 10^3/uL (1.5-6.6); NEUTROPHILS % (AUTO) 74.5 %; PLT - PLATELET COUNT 175 10^3/uL (130-450); RED BLOOD COUNT 4.25 10^6/uL (4.20-5.40); RED CELL DISTRIBUTION WIDTH 15.7 % (12.0-15.0); WHITE BLOOD COUNT 5.2 x10^3/uL (4.8-10.8)
[2018-07-23 18:21] LABS: ALBUMIN 3.8 g/dL (3.2-5.5); ALBUMIN/GLOBULIN RATIO 1.2 (1.0-2.2); BILIRUBIN,TOTAL 0.6 mg/dL (0.2-1.0); CALCIUM 9.7 mg/dL (8.5-10.3); CREATININE 0.7 mg/dL (0.4-1.0); TOTAL PROTEIN 7.1 g/dL (6.7-8.2)
== END 2018-07-23 11:26 | disposition home or self-care (01) ==
LOC: LAB.F 11:25
PROVIDERS: ATTEND Physician Assistant Medical
DX: E87.6 Hypokalemia (principal); R10.13 Epigastric pain; R53.83 Other fatigue; Z51.81 Encounter for therapeutic drug level monitoring; Z79.899 Other long term (current) drug therapy
CPT/HCPCS: 36415; 80053; 82150; 83690; 84443; 85025

== ENCOUNTER 2018-08-05 08:00 | Outpatient (CLI) | payer MEDICARE | END 2018-08-05 08:01 | disposition home or self-care (01) | LOC: LAB.R 08:00 | PROVIDERS: ATTEND Physician Assistant Medical | DX: N39.0 Urinary tract infection, site not specified (principal) | CPT/HCPCS: 87086 ==

== ENCOUNTER 2018-08-07 20:01 | Outpatient (CLI) | payer MEDICARE ==
--- NOTE | 2018-08-08 15:58 | Ultrasound Report ---
Reason: FLANK PAIN,RIGHT, UTI ACUTE Procedure Date: 08/07/2018 Accession Number: [id number] / [id number] Procedure: US - Retroperitoneal CPT Code: FULL RESULT: EXAM: RENAL ULTRASOUND EXAM DATE: 08/07/2018 08:44 PM. CLINICAL HISTORY: FLANK PAIN,RIGHT, UTI ACUTE. COMPARISON: None. TECHNIQUE: Real-time scanning was performed with static images obtained. FINDINGS: Right Kidney: 9.4 x 5.4 x 4.9 cm. Normal echotexture with no stones, contour-deforming masses, or hydronephrosis. Left Kidney: 10.5 x 4.0 x 5.4 cm. No hydronephrosis or mass. There is a simple cyst measuring 1.1 cm in diameter. Bladder: Bilateral jets seen. The prevoid bladder volume was 111 cc. The postvoid bladder volume was 7 cc. Other: None. IMPRESSION: 1. No hydronephrosis bilaterally. Small simple cyst in the left kidney. RADIA
== END 2018-08-07 20:02 | disposition home or self-care (01) ==
LOC: DI 20:01
PROVIDERS: ATTEND Physician Assistant Medical
DX: R10.9 Unspecified abdominal pain (principal); N39.0 Urinary tract infection, site not specified; N28.1 Cyst of kidney, acquired
CPT/HCPCS: 76770

== ENCOUNTER 2018-09-08 10:47 | Outpatient (CLI) | payer MEDICARE ==
--- NOTE | 2018-09-08 11:25 | XRAY Report ---
Reason: PAIN IN RIGHT ANKLE AND JOINTS OF RIGHT FOOT Procedure Date: 09/08/2018 Accession Number: [id number] / [id number] Procedure: XR - Ankle 3 View RT CPT Code: FULL RESULT: EXAM: RIGHT ANKLE RADIOGRAPHY EXAM DATE: 09/08/2018 10:51 AM. CLINICAL HISTORY: Pain in right ankle and joints of right foot. No known injury. Patient with RA. COMPARISON: XR ANKLE COMPLETE MIN 3 VIEW 04/05/2009 9:39 AM. TECHNIQUE: 3 views. FINDINGS: Bones: No acute fracture of the ankle identified. There is mild degenerative spurring from the tips of the malleoli, and anterior and posterior tibial margins. Prior arthrodesis procedure of the first and second MTP joints, incompletely included. Joints: Normal. No effusion. No subluxations. The ankle mortise is normally aligned. Evaluation of the subtalar joint is limited on the provided lateral film due to projection. Soft Tissues: Normal. No soft tissue swelling. IMPRESSION: Degenerative changes as described. No acute fracture. RADIA
== END 2018-09-08 10:48 | disposition home or self-care (01) ==
LOC: DI 10:47
PROVIDERS: ATTEND Physician Assistant Medical
DX: M19.071 Primary osteoarthritis, right ankle and foot (principal)

== ENCOUNTER 2018-09-10 12:56 | Outpatient (CLI) | payer MEDICARE | END 2018-09-10 12:57 | disposition home or self-care (01) | LOC: LAB.F 12:56 | PROVIDERS: ATTEND Physician Assistant Medical | DX: M25.571 Pain in right ankle and joints of right foot (principal) | CPT/HCPCS: 36415; 84550 ==

== ENCOUNTER 2019-01-01 08:01 | Outpatient (CLI) | payer MEDICARE ==
--- NOTE | 2019-01-01 11:03 | Ultrasound Report ---
Reason: RIGHT UPPER QUADRANT PAIN Procedure Date: 01/01/2019 Accession Number: [id number] / [id number] Procedure: US - Abdomen Limited CPT Code: FULL RESULT: EXAM: ABDOMEN ULTRASOUND LIMITED, RUQ EXAM DATE: 01/01/2019 09:14 AM. CLINICAL HISTORY: Right upper quadrant pain. COMPARISON: 06/27/2015. TECHNIQUE: Real-time scanning was performed with static images obtained. FINDINGS: Liver: Hepatic parenchyma is echogenic, limiting evaluation of fine detail and underlying masses. Right lobe of the liver measures at least 19 cm. Main portal vein flow: Hepatopetal. Gallbladder: Surgically absent. Biliary System: CBD measures 9 mm. No intrahepatic or extrahepatic ductal dilatation when allowing for status post cholecystectomy. Other: None. IMPRESSION: Status post cholecystectomy with prominent CBD felt to be within normal limits in this setting. RADIA
== END 2019-01-01 08:02 | disposition home or self-care (01) ==
LOC: DI 08:01
PROVIDERS: ATTEND Family Medicine
DX: R10.11 Right upper quadrant pain (principal); Z90.49 Acquired absence of other specified parts of digestive tract
CPT/HCPCS: 76705

== ENCOUNTER 2019-02-03 13:43 | Outpatient (CLI) | payer MEDICARE ==
[2019-02-03 13:55] LABS: BASOPHILS % (AUTO) 0.7 %; EOSINOPHILS # (AUTO) 0.1 10^3/uL (0.0-0.7); EOSINOPHILS % (AUTO) 1.1 %; HGB - HEMOGLOBIN 12.6 g/dL (12.0-16.0); MEAN CORPUSCULAR HEMOGLOBIN 29.3 pg (27.0-31.0); MEAN CORPUSCULAR HGB CONC 32.9 g/dL (32.0-36.0); MEAN CORPUSCULAR VOLUME 88.8 fL (81.0-99.0); MEAN PLATELET VOLUME 8.5 fL (7.9-10.8); MONOCYTES # (AUTO) 0.3 10^3/uL (0.0-1.0); NEUTROPHILS # (AUTO) 4.4 10^3/uL (1.5-6.6); NEUTROPHILS % (AUTO) 76.2 %; PLT - PLATELET COUNT 190 10^3/uL (130-450); RED CELL DISTRIBUTION WIDTH 16.1 % (12.0-15.0); WHITE BLOOD COUNT 5.8 x10^3/uL (4.8-10.8)
[2019-02-03 14:14] LABS: ALBUMIN 3.6 g/dL (3.2-5.5); ALBUMIN/GLOBULIN RATIO 1.1 (1.0-2.2); BILIRUBIN,TOTAL 0.6 mg/dL (0.2-1.0); CALCIUM 9.3 mg/dL (8.5-10.3); CREATININE 0.7 mg/dL (0.4-1.0); TOTAL PROTEIN 6.9 g/dL (6.7-8.2)
== END 2019-02-03 13:44 | disposition home or self-care (01) ==
LOC: LAB 13:43
PROVIDERS: ATTEND Internal Medicine Cardiovascular Disease
DX: I42.0 Dilated cardiomyopathy (principal); R53.82 Chronic fatigue, unspecified
CPT/HCPCS: 36415; 80053; 83540; 84443; 84466; 85025

== ENCOUNTER 2019-04-19 13:30 | Outpatient (CLI) | payer MEDICARE ==
--- NOTE | 2019-04-20 08:39 | Mammography Report ---
Reason: ENCOUNTER FOR SCREENING MAMMOGRAM FOR MALIGNANT NE Procedure Date: 04/19/2019 Accession Number: [id number] / [id number] Procedure: TYRONE - Screening Mammo w/Mike CPT Code: FULL RESULT: EXAM: Screening Mammo w/Mike DATE: 04/19/2019 1:56 PM CLINICAL HISTORY: Screening encounter. History of right breast biopsy in 2010 with benign pathology. Family history of breast cancer in the mother at the age of 69 and the sister at the age of 50. TECHNIQUE: (B) - Bilateral CC and MLO views were obtained. A left laterally exaggerated CC view was obtained. COMPARISON: 03/31/2018 through 01/27/2013. PARENCHYMAL PATTERN: (A) - The breast(s) demonstrate(s) scattered fibroglandular densities. FINDINGS: A biopsy marker is seen in the right breast. There are coarse typically benign calcifications. There are no suspicious masses, calcifications, or areas of distortion. IMPRESSION: Benign findings. BI-RADS category 2. RECOMMENDATION: (ANNUAL) - Recommend routine annual screening mammography. BI-RADS CATEGORY: (2) - Benign Findings. STANDARD QUALIFYING STATEMENTS: 1. This examination was not reviewed with the aid of Computer-Aided Detection (CAD). 2. A negative or benign imaging report should not preclude biopsy if clinically suspicious findings are present. 3. Dense breasts may obscure an underlying neoplasm. 4. This examination was reviewed with the aid of 3D breast imaging (tomosynthesis).
== END 2019-04-19 13:31 | disposition home or self-care (01) ==
LOC: DI 13:30
PROVIDERS: ATTEND Family Medicine
DX: Z12.31 Encounter for screening mammogram for malignant neoplasm of breast (principal); Z80.3 Family history of malignant neoplasm of breast
CPT/HCPCS: 77063; 77067

== ENCOUNTER 2019-07-30 14:15 | Outpatient (CLI) | payer MEDICARE ==
[2019-07-30 14:44] LABS: CALCIUM 9.4 mg/dL (8.5-10.3); CREATININE 0.7 mg/dL (0.4-1.0)
== END 2019-07-30 14:16 | disposition home or self-care (01) ==
LOC: LAB 14:15
PROVIDERS: ATTEND Internal Medicine Cardiovascular Disease
DX: I10 Essential (primary) hypertension (principal)
CPT/HCPCS: 36415; 80048

== ENCOUNTER 2019-08-14 16:37 | Outpatient (CLI) | payer OTHER, MEDICARE | END 2019-08-14 16:38 | disposition short-term general hospital (02) | LOC: EMS 16:37 | PROVIDERS: ATTEND Surgery | DX: M54.2 Cervicalgia (principal); M54.9 Dorsalgia, unspecified; M25.551 Pain in right hip; M25.552 Pain in left hip; V59.50XA Passenger in pick-up truck or van injured in collision with unspecified motor vehicles in traffic accident, initial encounter; Y92.413 State road as the place of occurrence of the external cause | CPT/HCPCS: A0425; A0429 ==

== ENCOUNTER 2019-08-18 10:45 | Outpatient (CLI) | payer OTHER, MEDICARE ==
--- NOTE | 2019-08-19 10:24 | XRAY Report ---
Reason: PAIN IN UNSPECIFIED ANKLE JOINT, ANKLE PAIN Procedure Date: 08/18/2019 Accession Number: [id number] / [id number] Procedure: XR - Ankle 3 View LT CPT Code: FULL RESULT: EXAM: LEFT ANKLE RADIOGRAPHY EXAM DATE: 08/18/2019 11:27 AM. CLINICAL HISTORY: Pain in left ankle joint, ankle pain. COMPARISON: ANKLE 3 VIEW RT 09/08/2018 10:51 AM FOOT 3 VIEW LT 03/11/2015 4:16 PM XR ANKLE COMPLETE MIN 3 VIEW 04/05/2009 9:39 AM. TECHNIQUE: 3 views. FINDINGS: Bones: Generalized bone demineralization. Stable narrowing of the anterior diaphysis of the partially imaged fifth metatarsal. No acute fracture detected at the ankle. Ankle mortise appears approximated. Generalized soft tissue prominence. Minimal ankle joint effusion suggested. Subtalar articulation appears preserved. No subcutaneous radiopaque foreign bodies. IMPRESSION: Soft tissue prominence at the ankle. No fracture or subluxation detected. RADIA
== END 2019-08-18 10:46 | disposition home or self-care (01) ==
LOC: DI 10:45
PROVIDERS: ATTEND Nurse Practitioner Family
DX: M25.572 Pain in left ankle and joints of left foot (principal)

== ENCOUNTER 2020-01-04 20:19 | Outpatient (CLI) | payer MEDICARE ==
--- NOTE | 2020-01-04 22:15 | Ultrasound Report ---
Reason: PAIN IN LOWER LEFT LEG Procedure Date: 01/04/2020 Accession Number: [id number] / [id number] Procedure: US - Duplex Ext Veins Left CPT Code: Final Report FULL RESULT: EXAM: LEFT LOWER EXTREMITY VENOUS ULTRASOUND EXAM DATE: 01/04/2020 09:38 PM. CLINICAL HISTORY: PAIN IN LOWER LEFT LEG. COMPARISON: None. TECHNIQUE: Real-time sonographic vascular imaging was performed by the pivot end polisher through the lower extremity utilizing both color-flow and Doppler spectral analysis. Multiple internet sales representative static images were saved for review. FINDINGS: Common Femoral Vein (CFV): No evidence of thrombus. CFV-GSV Junction: No evidence of thrombus. Profunda Femoral Vein (PFV): No evidence of thrombus. Femoral Vein (FV) Prox: No evidence of thrombus. Femoral Vein (FV) Mid: No evidence of thrombus. Femoral Vein (FV) Dist: No evidence of thrombus. Popliteal Vein: No evidence of thrombus. Posterior Tibial Veins: No evidence of thrombus. Peroneal Veins: No evidence of thrombus. Other: None. IMPRESSION: No evidence for deep venous thrombosis. RADIA
== END 2020-01-04 20:20 | disposition home or self-care (01) ==
LOC: DI 20:19
PROVIDERS: ATTEND Nurse Practitioner Family
DX: M79.662 Pain in left lower leg (principal)

== ENCOUNTER 2020-01-12 08:02 | Outpatient (CLI) | payer MEDICARE ==
--- NOTE | 2020-01-12 09:47 | CT Report ---
Reason: ABD PAIN Procedure Date: 01/12/2020 Accession Number: [id number] / [id number] Procedure: CT - Abdomen/Pelvis WO CPT Code: Final Report FULL RESULT: EXAM: CT ABDOMEN AND PELVIS (CT KUB) EXAM DATE: 01/12/2020 08:19 AM. CLINICAL HISTORY: Abdominal pain. COMPARISONS: KUB 04/23/2016 8:47 AM. TECHNIQUE: Routine axial helical CT imaging was performed through the abdomen and pelvis without IV contrast. Reconstructions: Coronal and sagittal. In accordance with CT protocol optimization, one or more of the following dose reduction techniques were utilized for this exam: automated exposure control, adjustment of mA and/or KV based on patient size, or use of iterative reconstructive technique. FINDINGS: Lung Bases: [place] 10 mm subpleural nodule posterior right lung base. Posterior left lung base appears clear. Right Kidney/Ureter: Mild smooth cortical thinning. No hydronephrosis. Punctate vascular calcification in the midpole. No nephrolithiasis or ureteral stones identified. Left Kidney/Ureter: Minimal cortical thinning. No hydronephrosis or nephrolithiasis. There is a 14 mm medial midpole cyst. No ureteral stones identified. Other Solid Organs: No evident masses of the non-IV contrasted liver. Stable Lai's lobe, measured at 21 cm in length. Stable pneumobilia. Previous cholecystectomy. Stable mild prominence of the bile duct at 12 mm transversely. The non-IV contrasted spleen, pancreas, and adrenal glands appear grossly within normal limits. Peritoneal Cavity: No free fluid, free air or albin adenopathy. No bowel obstruction. Partially formed stool within the colon. Monte[place]o density consistent with a medicinal pill at the cecum. Unremarkable small bowel. No pathologically enlarged lymph nodes. Somewhat low-lying cecum, similar to previous. Pelvic Organs: The contour of the urinary bladder appears within normal limits. The uterus is absent. No cystic or mass lesions in either adnexa. Vasculature: No aneurysm of the abdominal aorta. Moderately heavy mural calcification. Other: Moderate degenerative changes at both hips, with joint space narrowing. IMPRESSION: No urinary tract stones or obstruction. Stable pneumobilia. No bowel obstruction. RADIA
== END 2020-01-12 08:03 | disposition home or self-care (01) ==
LOC: DI 08:02
PROVIDERS: ATTEND Nurse Practitioner Family
DX: R10.9 Unspecified abdominal pain (principal)
CPT/HCPCS: 74176

== ENCOUNTER 2020-03-14 15:20 | Outpatient (CLI) | payer MEDICARE ==
[2020-03-14 15:47] LABS: HGB - HEMOGLOBIN 11.7 g/dL (12.0-16.0); MEAN CORPUSCULAR HEMOGLOBIN 28.8 pg (27.0-31.0); MEAN CORPUSCULAR HGB CONC 31.6 g/dL (32.0-36.0); MEAN CORPUSCULAR VOLUME 91.1 fL (81.0-99.0); MEAN PLATELET VOLUME 9.7 fL (7.9-10.8); RED BLOOD COUNT 4.06 10^6/uL (4.20-5.40); RED CELL DISTRIBUTION WIDTH 14.1 % (12.0-15.0); WHITE BLOOD COUNT 4.1 x10^3/uL (4.8-10.8)
[2020-03-14 16:03] LABS: ALBUMIN 3.6 g/dL (3.2-5.5); ALBUMIN/GLOBULIN RATIO 1.1 (1.0-2.2); BILIRUBIN,TOTAL 0.7 mg/dL (0.2-1.0); CALCIUM 9.2 mg/dL (8.5-10.3); CREATININE 0.7 mg/dL (0.4-1.0); TOTAL PROTEIN 6.9 g/dL (6.7-8.2)
== END 2020-03-14 15:21 | disposition home or self-care (01) ==
LOC: LAB 15:20
PROVIDERS: ATTEND Internal Medicine Cardiovascular Disease
DX: R60.1 Generalized edema (principal); R06.02 Shortness of breath
CPT/HCPCS: 36415; 80053; 83880; 84443; 85027

== ENCOUNTER 2020-03-31 08:57 | Outpatient (CLI) | payer MEDICARE ==
--- NOTE | 2020-04-03 15:54 | DEXA Report ---
Reason: LONG-TERM USE OF SYSTEMIC STEROIDS Procedure Date: 03/31/2020 Accession Number: [id number] / [id number] Procedure: DEX - Dexa Spine and/or Hip CPT Code: Final Report FULL RESULT: PROCEDURE: Dexa Spine and/or Hip INDICATIONS: LONG-TERM USE OF SYSTEMIC STEROIDS TECHNIQUE: Dual energy x-ray absorptiometry (DXA) was performed on a trip.me System. Regions measured are the AP Spine, femoral neck, and if needed forearm. COMPARISON: DEXA 10/31/16 FINDINGS: Lumbar Spine: Bone Mineral Density 0.983 g/cm/cm,T score -1.6, compared to -2.1 in 2017. Left Hip: Bone Mineral Density 0.638 g/cm/cm,T score -2.9, compared to -2.7 on prior exam, demonstrating progressive osteopenia.. Left Femoral Neck: Bone Mineral Density 0.787 g/cm/cm, T score -1.8, compared to -1.3 on prior exam, demonstrating progressive osteopenia. (T score greater or equal to -1.0: NORMAL) (T score from -1.1 to -2.4: OSTEOPENIA) (T score less than or equal to -2.5 to: OSTEOPOROSIS) Impression: 1. Progessive osteopenia in the left hip and femoral neck compared to prior exam. Patients with diagnosis of osteoporosis or osteopenia should have regular bone mineral density assessment. For those eligible for Medicare, routine testing is allowed once every 2 years. Testing frequency can be increased for patients who have rapidly progressing disease or for those who are receiving medical therapy to restore bone mass. Reviewed by: Delmis Allison MD on 04/03/2020 3:52 PM PDT Approved by: Delmis Allison MD on 04/03/2020 3:52 PM PDT Station ID: [id number]
== END 2020-03-31 08:58 | disposition home or self-care (01) ==
LOC: DI 08:57
PROVIDERS: ATTEND Family Medicine
DX: Z12.31 Encounter for screening mammogram for malignant neoplasm of breast (principal); Z80.3 Family history of malignant neoplasm of breast; M85.88 Other specified disorders of bone density and structure, other site; M06.9 Rheumatoid arthritis, unspecified; Z79.52 Long term (current) use of systemic steroids
CPT/HCPCS: 77063; 77067; 77080

== ENCOUNTER 2020-03-31 08:59 | Outpatient (CLI) | payer MEDICARE ==
--- NOTE | 2020-04-03 09:55 | Mammography Report ---
BILATERAL DIGITAL SCREENING MAMMOGRAM 3D/2D: 03/31/2020 CLINICAL: Routine screening. Family history of breast cancer. Comparison is made to exams dated: 04/19/2019 mammogram, 03/31/2018 mammogram, 03/28/2017 mammogram, and [facility] There are scattered fibroglandular elements in b oth breasts. No significant masses, calcifications, or other findings are seen in either breast. There has been no significant interval change. IMPRESSION: NEGATIVE There is no mammographic evidence of malignancy. A 1 year screening mammogram is recommended. This exam was interpreted at Station ID: [id number]. NOTE: For mammograms, a report in lay terms will be sent to the patient. Approximately 15% of breast malignancies will not be visualized mammographically. In the management of a palpable breast mass, a negative mammogram must not discourage biopsy of a clinically suspicious lesion. Electronically Signed By: Blade Hernandez M.D. ddp/penrad:03/31/2020 12:55:50 ACR BI-RADS Category 1: Negative 3341F PARENCHYMAL PATTERN: (A) - The breast(s) demonstrate(s) scattered fibroglandular densities. BI-RADS CATEGORY: (1) - 1 RECOMMENDATION: (ANNUAL) - Recommend routine annual screening mammography. [id number] 1 year screening LATERALITY: (B)
== END 2020-03-31 09:00 | disposition home or self-care (01) ==
LOC: DI 08:59
DX: Z12.31 Encounter for screening mammogram for malignant neoplasm of breast (principal); Z80.3 Family history of malignant neoplasm of breast
CPT/HCPCS: 77063; 77067

== ENCOUNTER 2020-04-08 09:52 | Outpatient (CLI) | payer MEDICARE | END 2020-04-08 09:53 | disposition home or self-care (01) | LOC: LAB.S 09:52 | PROVIDERS: ATTEND Internal Medicine Critical Care Medicine | DX: R91.1 Solitary pulmonary nodule (principal) | CPT/HCPCS: 36415; 81599; 86480; 86612; 86635; 86698 ==

== ENCOUNTER 2020-07-28 14:43 | Outpatient (CLI) | payer MEDICARE ==
--- NOTE | 2020-07-28 15:54 | XRAY Report ---
PROCEDURE: Chest 2 View X-Ray INDICATIONS: PLEURODYNIA TECHNIQUE: 2 view(s) of the chest. COMPARISON: Chest x-ray 09/17/2017 FINDINGS: Surgical changes and devices: None. Lungs and pleura: Minimal bilateral costophrenic angle blunting, slightly more prominent when compare d to 2017.. Unchanged right hemidiaphragm elevation. Mediastinum: Mediastinal contours are normal. Heart size is normal. Bones and chest wall: No suspicious bony abnormalities. Soft tissues appear unremarkable. IMPRESSION: Slightly more prominent appearance of costophrenic angle blunting bilaterally, possibly related to trace effusions versus scarring. Reviewed by: Delmis Allison MD on 07/28/2020 3:53 PM PDT Approved by: Delmis Allison MD on 07/28/2020 3:53 PM PDT Station ID: [id number]
== END 2020-07-28 14:44 | disposition home or self-care (01) ==
LOC: DI 14:43
PROVIDERS: ATTEND Physician Assistant
DX: R07.81 Pleurodynia (principal)
CPT/HCPCS: 71046

== ENCOUNTER 2021-03-28 14:36 | Outpatient (CLI) | payer MEDICARE, MEDICAID ==
--- NOTE | 2021-03-29 13:29 | Mammography Report ---
BILATERAL DIGITAL SCREENING MAMMOGRAM 3D/2D: 03/28/2021 CLINICAL: Routine screening. Comparison is made to exams dated: 03/31/2020 mammogram, 04/19/2019 mammogram, 03/31/2018 ultrasound, 03/31 mammogram, 03/31/2018 ultrasound, and 03/28/2017 mammogram - [facility]. There a re scattered fibroglandular elements in both breasts. No significant masses, calcifications, or other findings are seen in either breast. There has been no significant interval change. IMPRESSION: NEGATIVE There is no mammographic evidence of malignancy. A 1 year screening mammogram is recommended. This exam was interpreted at Station ID: [id number]. NOTE: For mammograms, a report in lay terms will be sent to the patient. Approximately 15% of breast malignancies will not be visualized mammographically. In the management of a palpable breast mass, a negative mammogram must not discourage biopsy of a clinically suspicious lesion. Electronically Signed By: Blade Hernandez M.D. ddhuma/marc:03/28/2021 15:38:21 ACR BI-RADS Category 1: Negative 3341F PARENCHYMAL PATTERN: (A) - The breast(s) demonstrate(s) scattered fibroglandular densities. BI-RADS CATEGORY: (1) - 1 RECOMMENDATION: (ANNUAL) - Recommend routine annual screening mammography. [id number] 1 year screening LATERALITY: (B)
== END 2021-03-28 14:37 | disposition home or self-care (01) ==
LOC: DI 14:36
PROVIDERS: ATTEND Family Medicine
DX: Z12.31 Encounter for screening mammogram for malignant neoplasm of breast (principal)

== ENCOUNTER 2021-04-10 09:02 | Outpatient (CLI) | payer MEDICARE, MEDICAID ==
[2021-04-10 09:33] LABS: BASOPHILS % (AUTO) 0.6 %; EOSINOPHILS # (AUTO) 0.1 10^3/uL (0.0-0.7); EOSINOPHILS % (AUTO) 2.1 %; HCT - HEMATOCRIT 36.2 % (37.0-47.0); HGB - HEMOGLOBIN 11.5 g/dL (12.0-16.0); LYMPHOCYTES # (AUTO) 0.7 10^3/uL (1.5-3.5); LYMPHOCYTES % (AUTO) 19.9 %; MEAN CORPUSCULAR HEMOGLOBIN 29.3 pg (27.0-31.0); MEAN CORPUSCULAR HGB CONC 31.8 g/dL (32.0-36.0); MEAN CORPUSCULAR VOLUME 92.1 fL (81.0-99.0); MEAN PLATELET VOLUME 10.1 fL (7.9-10.8); MONOCYTES # (AUTO) 0.2 10^3/uL (0.0-1.0); MONOCYTES % (AUTO) 7.1 %; NEUTROPHILS # (AUTO) 2.3 10^3/uL (1.5-6.6); NEUTROPHILS % (AUTO) 69.4 %; PLT - PLATELET COUNT 169 10^3/uL (130-450); RED BLOOD COUNT 3.93 10^6/uL (4.20-5.40); RED CELL DISTRIBUTION WIDTH 14.7 % (12.0-15.0); WHITE BLOOD COUNT 3.4 x10^3/uL (4.8-10.8)
[2021-04-10 10:09] LABS: ALBUMIN 3.7 g/dL (3.2-5.5); ALBUMIN/GLOBULIN RATIO 1.3 (1.0-2.2); ALKALINE PHOSPHATASE 104 IU/L (42-121); ALT ALANINE AMINOTRANSFERASE 16 IU/L (10-60); AST ASPARTATE AMINOTRANSFERASE 21 IU/L (10-42); BILIRUBIN,TOTAL 0.7 mg/dL (0.2-1.0); BUN - BLOOD UREA NITROGEN 13 mg/dL (6-20); CALCIUM 9.4 mg/dL (8.5-10.3); CARBON DIOXIDE - CO2 29 mmol/L (21-32); CHLORIDE 102 mmol/L (101-111); CHOL/HDL RATIO 3.6 (<4.4); CHOLESTEROL 198 mg/dL; CREATININE 0.6 mg/dL (0.4-1.0); GFR - MDRD 100 (>89); GLUCOSE 84 mg/dL (70-100); HDL CHOLESTEROL 55 mg/dL; LDL CHOLESTEROL,CALCULATED 88 mg/dL; LDL/HDL RATIO 1.6 (<4.4); POTASSIUM 3.4 mmol/L (3.5-5.0); SODIUM 142 mmol/L (135-145); TOTAL PROTEIN 6.5 g/dL (6.7-8.2); TRIGLYCERIDES 277 mg/dL; VLDL CHOLESTEROL 55 mg/dL
[2021-04-10 10:12] LABS: CORTISOL 7.7 ug/dL
[2021-04-10 10:16] LABS: THYROID STIMULATING HORMONE 0.71 uIU/mL (0.34-5.60)
[2021-04-10 10:31] LABS: CRP - C-REACTIVE PROTEIN < 1.0 mg/dL (0-1.0)
[2021-04-12 15:31] LABS: ALBUMIN 3.5 g/dL (3.8-4.8); ALPHA 1 GLOBULIN 0.4 g/dL (0.2-0.3); ALPHA 2 GLOBULIN 0.8 g/dL (0.5-0.9); BETA 1 GLOBULIN 0.4 g/dL (0.4-0.6); BETA 2 GLOBULIN 0.3 g/dL (0.2-0.5); GAMMA GLOBULIN 0.8 g/dL (0.8-1.7)
== END 2021-04-10 09:03 | disposition home or self-care (01) ==
LOC: LAB 09:02
PROVIDERS: ATTEND Internal Medicine Rheumatology
DX: R25.2 Cramp and spasm (principal); Z79.891 Long term (current) use of opiate analgesic; M05.79 Rheumatoid arthritis with rheumatoid factor of multiple sites without organ or systems involvement; Z79.899 Other long term (current) drug therapy; M81.8 Other osteoporosis without current pathological fracture
CPT/HCPCS: 36415; 80053; 80061; 81001; 81003; 81599; 82172; 82306; 82533; 83721; 83970; 84155; 84165; 84443; 85025; 85651; 86140; 87086

== ENCOUNTER 2021-06-05 17:49 | Outpatient (CLI) | payer MEDICARE, MEDICAID | END 2021-06-05 17:50 | disposition critical access hospital (66) | LOC: EMS 17:49 | DX: R10.9 Unspecified abdominal pain (principal) | CPT/HCPCS: A0425; A0427 ==

== ENCOUNTER 2021-06-05 18:08 | Emergency (ER) | payer MEDICARE, MEDICAID ==
[2021-06-05 18:32] LABS: BASOPHILS % (AUTO) 0.4 %; EOSINOPHILS % (AUTO) 0.4 %; HCT - HEMATOCRIT 36.9 % (37.0-47.0); LYMPHOCYTES # (AUTO) 0.8 10^3/uL (1.5-3.5); LYMPHOCYTES % (AUTO) 16.6 %; MEAN CORPUSCULAR HEMOGLOBIN 29.4 pg (27.0-31.0); MEAN CORPUSCULAR HGB CONC 32.5 g/dL (32.0-36.0); MEAN CORPUSCULAR VOLUME 90.4 fL (81.0-99.0); MEAN PLATELET VOLUME 9.8 fL (7.9-10.8); MONOCYTES # (AUTO) 0.2 10^3/uL (0.0-1.0); MONOCYTES % (AUTO) 4.8 %; NEUTROPHILS # (AUTO) 3.5 10^3/uL (1.5-6.6); NEUTROPHILS % (AUTO) 77.1 %; PLT - PLATELET COUNT 193 10^3/uL (130-450); RED BLOOD COUNT 4.08 10^6/uL (4.20-5.40); RED CELL DISTRIBUTION WIDTH 14.5 % (12.0-15.0); WHITE BLOOD COUNT 4.6 x10^3/uL (4.8-10.8)
[2021-06-05 18:46] LABS: ALBUMIN 3.9 g/dL (3.2-5.5); ALBUMIN/GLOBULIN RATIO 1.6 (1.0-2.2); BILIRUBIN,TOTAL 0.6 mg/dL (0.2-1.0); CALCIUM 9.1 mg/dL (8.5-10.3); CREATININE 0.7 mg/dL (0.4-1.0); POTASSIUM 3.7 mmol/L (3.5-5.0); TOTAL PROTEIN 6.4 g/dL (6.7-8.2)
[2021-06-05] MEDS: valACYclovir 500 MG TABLET PO STA (19:19)
[2021-06-05] MEDS: oxyCODONE 5 MG TABLET PO STA (19:19)
--- NOTE | 2021-06-05 19:19 | ED Physician Documentation ---
History of Present Illness - Stated complaint Stated Complaint: LT FLANK PX - Chief complaint Chief Complaint: Abd Pain - History obtained from History obtained from: Patient - History of Present Illness Timing: Today Pain level max: 7 Pain level now: 6 - Additonal information Additional information: 65-year-old female with left chest wall pain. Started today. Described as sharp and burning. Worse with touching the skin. She states even her shirt hurts when it touches the skin. Denies any rash. No similar symptoms previously. No shortness of breath. No nausea or vomiting no abdominal pain. Review of Systems Constitutional: denies: Fever, Chills Throat: denies: Sore throat Cardiac: denies: Chest pain / pressure Respiratory: denies: Cough, Wheezing Skin: denies: Rash Musculoskeletal: denies: Neck pain, Back pain Neurologic: denies: Headache PD PAST MEDICAL HISTORY - Past Medical History Cardiovascular: Valve disorder, Other Respiratory: None Endocrine/Autoimmune: None GI: None PULP MAKER: Endometriosis : None HEENT: None Psych: None Musculoskeletal: Osteoarthritis, Rheumatoid arthritis Derm: None - Past Surgical History Past Surgical History: Yes /PULP MAKER: section, Hysterectomy HEENT: Tonsil/Adenoidectomy - Present Medications Home Medications: Ambulatory Orders Medication Instructions Recorded Confirmed HYDROcodone/ACET 10/325 [[place] 10 1 each PO Q4-6H PRN 11/01/13 06/05/21 mg/325 mg] Morphine Sulfate [Ms Contin] 100 mg PO TID 09/17/17 06/05/21 predniSONE [Prednisone] 5 mg PO DAILY 09/17/17 06/05/21 ALPRAZolam [Alprazolam] 0.5 mg PO Q6HR PRN 06/05/21 06/05/21 Escitalopram [Lexapro] 10 mg PO DAILY 06/05/21 06/05/21 Furosemide [Lasix] 10 mg PO DAILY 06/05/21 06/05/21 Oxycodone HCl/Acetaminophen 1 - 2 each PO Q6H PRN #14 tablet 06/05/21 [Percocet 5-325 mg Tablet] Upadacitinib [Rinvoq] 15 mg ORAL DAILY 06/05/21 06/05/21 Valacyclovir HCl [Valtrex] 1,000 mg PO TID #21 tablet 06/05/21 Zolpidem [Ambien] 5 mg PO HS PRN 06/05/21 06/05/21 - Allergies Allergies/Adverse Reactions: Allergies Allergy/AdvReac Type Severity Reaction Status Date / Time tetanus toxoid, adsorbed AdvReac Intermediate Edema Verified 06/05/21 18:14 - Social History Does the pt smoke?: Yes Smoking Status: Smoker current status unk Does the pt drink ETOH?: No Does the pt have substance abuse?: No - Immunizations Immunizations are current?: Yes - POLST Patient has POLST: No POLST Status: Full Code PD ED PE NORMAL - Vitals Vital signs reviewed: Yes - General General: Alert and oriented X 3, No acute distress - HEENT HEENT: Moist mucous membranes - Neck Neck: Supple, no meningeal sign - Cardiac Cardiac: RRR, No murmur, Strong equal pulses - Respiratory Respiratory: No respiratory distress, Clear bilaterally - Derm Derm: Warm and dry, No rash, Other (Tenderness to even light touch around the T7 dermatome on the left side of the chest. Otherwise normal exam) - Extremities Extremities: No edema, No calf tenderness / cord - Neuro Neuro: Alert and oriented X 3 Results - Vitals Vitals: Oxygen O2 Source Room air - Labs Labs: Laboratory Tests 06/05/21 06/05/21 18:27 18:27 WBC 4.6 L RBC 4.08 L Hgb 12.0 Hct 36.9 L MCV 90.4 MCH 29.4 MCHC 32.5 RDW 14.5 Plt Count 193 MPV 9.8 Neut # (Auto) 3.5 Lymph # (Auto) 0.8 L [place] # (Auto) 0.2 Eos # (Auto) 0.0 Baso # (Auto) 0.0 Absolute Nucleated RBC 0.00 Nucleated RBC % 0.0 Sodium 137 Potassium 3.7 Chloride 100 L Carbon Dioxide 29 Anion Gap 8.0 BUN 18 Creatinine 0.7 Estimated GFR (MDRD) 84 L Glucose 133 H Calcium 9.1 Total Bilirubin 0.6 AST 21 ALT 17 Alkaline Phosphatase 99 Total Protein 6.4 L Albumin 3.9 Globulin 2.5 Albumin/Globulin Ratio 1.6 Lipase 54 H PD MEDICAL DECISION MAKING - ED course Complexity details: considered differential, d/w patient ED course: Patient with what appears to be likely shingles on exam. No evidence of ACS, PE. Abdomen is soft nontender nondistended. Is in 1 specific dermatome and sensitive to light touch. No rash yet. Will start on pain medication and valacyclovir. Patient counseled regarding signs and symptoms for which I believe and urgent re-evaluation would be necessary. Patient with good understanding of and agreement to plan and is comfortable going home at this time This document was made in part using voice recognition software. While efforts are made to proofread this document, sound alike and grammatical errors may occur. Departure - Departure Disposition: 01 Home, Self Care Clinical Impression: Shingles Qualifiers: Herpes zoster complications: without complications Qualified Code(s): B02.9 - Zoster without complications Condition: Good Instructions: ED Shingles Follow-Up: Hamilton Seth MD [Primary Care Provider] - Within 1 week Prescriptions: Oxycodone HCl/Acetaminophen [Percocet 5-325 mg Tablet] 1 - 2 each PO Q6H PRN #14 tablet PRN Reason: pain Valacyclovir HCl [Valtrex] 1,000 mg PO TID #21 tablet Comments: Use the medication as prescribed. Return if you worsen. Follow-up with your doctor for further care. You will likely develop a rash in the next 1 to 2 days. I am prescribing a short course of narcotic pain medication for you. These are potentially dangerous and addictive medications that should be used carefully. These medications may constipate you. Take an zsby-yyi-kfvxvwq stool softener (docusate) twice daily with plenty of water while taking these medications. If you go 24 hours without a bowel movement, take flvx-ewz-oxjaafy miralax, per package instructions. Do not drink or drive while taking these medications. If you received narcotic or sedating medications while in the emergency department, do not drive for 24 hours. Store this medication in a safe, secure place and out of reach of children. It is a violation of federal law to give or sell this medication to another person or to use in a manner other than prescribed. The ED will not refill narcotic prescriptions, including prescriptions lost or stolen. To dispose of unwanted medications: 1. [facility] [address] in [place] has a medication drop box. They accept prescription medications (in pill form) Friday through Friday 9:00 a.m. to 5:00 p.m. 2. The [facility] [place] [employer] accepts prescription medications (in pill form only) for disposal year round. Call for more information. 3. Contact the [facility] for the next [facility] sponsored prescription drug collection event. , [phone], or [phone]; Discharge Date/Time: 06/05/21 19:38
[2021-06-05 19:26] VITALS: BP 132/68
== END 2021-06-05 19:38 | disposition home or self-care (01) ==
LOC: EDUNIT# → ED 18:08
DX: B02.9 Zoster without complications (principal); F17.200 Nicotine dependence, unspecified, uncomplicated
CPT/HCPCS: 36415; 80053; 83690; 85025; 99283; 99284; A9270

== ENCOUNTER 2021-10-10 09:47 | Outpatient (CLI) | payer MEDICARE, MEDICAID ==
--- NOTE | 2021-10-10 11:56 | XRAY Report ---
PROCEDURE: Hip w/Pelvis 2-3V LT INDICATIONS: PAIN IN LEFT HIP JOINT TECHNIQUE: AP pelvis with lateral view(s) of the left hip(s). COMPARISON: None. FINDINGS: Bones: Asymmetric severe left hip joint osteoarthritis is seen. No fractures or dislocations. No lm dence of avascular necrosis of femoral head. Pelvic ring appears intact. No suspicious bony lesions. Soft tissues: The visualized bowel gas pattern is normal. No suspicious soft tissue calcifications. IMPRESSION: Asymmetric severe left hip joint osteoarthritis. No fracture or dislocation. No evidence of avascular necrosis. Reviewed by: Tej Perez MD on 10/10/2021 11:55 AM PST Approved by: Tej Perez MD on 10/10/2021 11:55 AM PST Station ID: [id number]
--- NOTE | 2021-10-10 13:33 | XRAY Report ---
PROCEDURE: Lumbar Spine 2 View INDICATIONS: LOW BACK PAIN TECHNIQUE: 2 views of the lumbar spine were acquired. COMPARISON: None. FINDINGS: Bones: 5 zvj-sam-vchjily vertebrae are present. There is severe levoscoliosis; otherwise normal bon y alignment. No vertebral body compression fractures. No suspicious bony lesions. There is degener ative disc disease, moderate at 1-L2 and L2-L3, mild at L3-L4 and L4-L5 and L5-S1. Severe facet arthr opathy at L1-L2, L2-L3, L3-L4, L4-L5 and L5-S1. Soft tissues: Overlying bowel gas pattern is normal. Vascular calcifications consistent with atheros clerosis. IMPRESSION: 1. Scoliosis. 2. Moderate degenerative disc and severe facet disease in lumbar spine. Reviewed by: Heidi Estrada MD on 10/10/2021 1:31 PM PST Approved by: Heidi Estrada MD on 10/10/2021 1:31 PM PST Station ID: [id number]
== END 2021-10-10 09:48 | disposition home or self-care (01) ==
LOC: DI 09:47
PROVIDERS: ATTEND Physician Assistant
DX: M47.816 Spondylosis without myelopathy or radiculopathy, lumbar region (principal); M47.817 Spondylosis without myelopathy or radiculopathy, lumbosacral region; M51.36 Other intervertebral disc degeneration, lumbar region; M51.37 Other intervertebral disc degeneration, lumbosacral region; M16.12 Unilateral primary osteoarthritis, left hip

== ENCOUNTER 2022-01-15 14:58 | Outpatient (CLI) | payer MEDICARE, MEDICAID ==
--- NOTE | 2022-01-15 17:00 | CT Report ---
PROCEDURE: LUMBAR SPINE WO INDICATIONS: LOW BACK PAIN TECHNIQUE: Noncontrast 3 mm thick sections acquired from the T12 level to the sacrum. Sagittal and coronal refo rmats were constructed. For radiation dose reduction, the following was used: automated exposure co ntrol, adjustment of mA and/or kV according to patient size. COMPARISON: Lumbar spine plain films dated 10/10/2021 FINDINGS: Image quality: Excellent. Bones: There is moderate leftward curvature of the mid/upper lumbar spine. 5 lumbar type vertebral b odies are present by plain film. No acute vertebral body compression fractures. No suspicious lytic or blastic bony lesions. Central spinal caliber is of normal overall caliber. No pars defects. Mul tilevel disc space narrowing and endplate osteophyte formation throughout the thoracolumbar spine. Fa cet hypertrophy throughout the thoracolumbar spine is present. Multilevel canal stenoses, worst at L3 -L4 where there is moderate canal stenosis. Multilevel foraminal stenoses, worst on the right at L2-L 3, and on the left at L5-S1 where there is severe foraminal stenosis with associated intraforaminal n erve root compression. Soft tissues: No retroperitoneal masses or hematomas. Visualized aorta is normal in caliber. Nonob structing right superior pole renal calculus measuring 2 mm. IMPRESSION: 1. Leftward curvature of the lumbar spine. 2. Multilevel degenerative disc and facet disease, in addition to epidural lipomatosis and ligamentum flavum hypertrophy. 3. Multilevel canal stenoses, worst at L3-L4 where there is moderate canal stenosis. 4. Multilevel foraminal stenoses, worst at L2-L3 and L5-S1 where there is associated intraforaminal n erve root compression. Recommend correlation with clinical symptoms to ascertain relevance of these f indings. 5. Nonobstructing right renal calculus. Reviewed by: Kavin Parsons MD on 01/15/2022 4:59 PM PDT Approved by: Kavin Parsons MD on 01/15/2022 4:59 PM PDT Station ID: [id number]
== END 2022-01-15 14:59 | disposition home or self-care (01) ==
LOC: DI 14:58
PROVIDERS: ATTEND Physician Assistant
DX: M51.36 Other intervertebral disc degeneration, lumbar region (principal); M48.061 Spinal stenosis, lumbar region without neurogenic claudication; M51.37 Other intervertebral disc degeneration, lumbosacral region; M48.07 Spinal stenosis, lumbosacral region; M47.816 Spondylosis without myelopathy or radiculopathy, lumbar region; M47.817 Spondylosis without myelopathy or radiculopathy, lumbosacral region

== ENCOUNTER 2022-01-16 08:29 | Outpatient (CLI) | payer MEDICARE, MEDICAID | END 2022-01-16 08:30 | disposition home or self-care (01) | LOC: LAB 08:29 | PROVIDERS: ATTEND Internal Medicine Critical Care Medicine | DX: R91.8 Other nonspecific abnormal finding of lung field (principal) | CPT/HCPCS: 87070; 87205 ==

== ENCOUNTER 2022-02-13 15:40 | Outpatient (CLI) | payer MEDICARE, MEDICAID ==
[2022-02-13 16:20] LABS: BILIRUBIN,TOTAL 0.8 mg/dL (0.2-1.0); CALCIUM 9.1 mg/dL (8.5-10.3); CREATININE 0.7 mg/dL (0.4-1.0); POTASSIUM 3.9 mmol/L (3.5-5.0); URIC ACID 2.3 mg/dL (2.6-7.2)
[2022-02-13 16:21] LABS: ALBUMIN 3.8 g/dL (3.2-5.5); ALBUMIN/GLOBULIN RATIO 1.2 (1.0-2.2); CRP - C-REACTIVE PROTEIN 1.4 mg/dL (0-1.0)
--- NOTE | 2022-02-13 17:19 | XRAY Report ---
PROCEDURE: Wrist 3 View RT INDICATIONS: PAIN IN RIGHT WRIST TECHNIQUE: 3 views of the wrist were acquired. COMPARISON: None. FINDINGS: Bones: Postsurgical changes are seen from wrist arthroplasty. Lucency is seen surrounding the radial component, which may indicate loosening. The alignment of the proximal and distal prosthetic componen ts appears somewhat abnormal, which may be partially related to positioning or prosthetic failure. There is a minimally displaced fracture of the radial aspect of the distal radial metaphysis adjacent to the perihardware lucency. Degenerative changes are seen between the ulnar styloid and the triquetrum. Status post first metacar pophalangeal fixation with solid osseous fusion across the joint line. Suspected postsurgical changes at the metacarpophalangeal joints of the fingers, which are not completely imaged. Soft tissues: No suspicious soft tissue calcifications. IMPRESSION: 1.Postsurgical changes from wrist arthroplasty with abnormal positioning of the proximal and distal c omponents that is suspicious for hardware failure. Lucency surrounding the radial prosthetic componen t is suspicious for loosening. 2.Minimally displaced fracture at the radial aspect of the radial metaphysis adjacent to the arthropl asty stem. Reviewed by: Darren Boyer MD on 02/13/2022 5:18 PM PDT Approved by: Darren Boyer MD on 02/13/2022 5:18 PM PDT Station ID: [id number]
[2022-02-13 18:22] LABS: BASOPHILS % (AUTO) 0.9 %; EOSINOPHILS # (AUTO) 0.1 10^3/uL (0.0-0.7); EOSINOPHILS % (AUTO) 1.3 %; HCT - HEMATOCRIT 40.5 % (37.0-47.0); LYMPHOCYTES # (AUTO) 0.7 10^3/uL (1.5-3.5); LYMPHOCYTES % (AUTO) 13.9 %; MEAN CORPUSCULAR HEMOGLOBIN 28.1 pg (27.0-31.0); MEAN CORPUSCULAR HGB CONC 32.1 g/dL (32.0-36.0); MEAN CORPUSCULAR VOLUME 87.7 fL (81.0-99.0); MEAN PLATELET VOLUME 11.5 fL (7.9-10.8); MONOCYTES # (AUTO) 0.2 10^3/uL (0.0-1.0); MONOCYTES % (AUTO) 4.9 %; NEUTROPHILS # (AUTO) 3.7 10^3/uL (1.5-6.6); NEUTROPHILS % (AUTO) 78.6 %; PLT - PLATELET COUNT 148 10^3/uL (130-450); RED BLOOD COUNT 4.62 10^6/uL (4.20-5.40); RED CELL DISTRIBUTION WIDTH 15.3 % (12.0-15.0); WHITE BLOOD COUNT 4.7 x10^3/uL (4.8-10.8)
== END 2022-02-13 15:41 | disposition home or self-care (01) ==
LOC: LAB 15:40 → DI 15:41
PROVIDERS: ATTEND Physician Assistant
DX: S52.591A Other fractures of lower end of right radius, initial encounter for closed fracture (principal); Z96.631 Presence of right artificial wrist joint
CPT/HCPCS: 36415; 80053; 84550; 85025; 85651; 86140

== ENCOUNTER 2022-02-20 10:29 | Outpatient (CLI) | payer MEDICARE, MEDICAID ==
--- NOTE | 2022-02-20 13:00 | XRAY Report ---
PROCEDURE: Chest 2 View X-Ray INDICATIONS: PULMONARY INFILTRATES TECHNIQUE: 2 view(s) of the chest. COMPARISON: None. FINDINGS: Surgical changes and devices: None. Lungs and pleura: Unchanged blunting of the right lateral costophrenic angle. Question scarring versu s minimal effusion. Lungs are clear. Mediastinum: Mediastinal contours are normal. Heart size is normal. Bones and chest wall: No suspicious bony abnormalities. Soft tissues appear unremarkable. IMPRESSION: Question scarring, right lateral costophrenic angle versus minimal effusion. No evidence acute pulmonary process. Reviewed by: John Lam MD on 02/20/2022 12:58 PM PDT Approved by: John Lam MD on 02/20/2022 12:58 PM PDT Station ID: [id number]
== END 2022-02-20 10:30 | disposition home or self-care (01) ==
LOC: DI 10:29
PROVIDERS: ATTEND Internal Medicine Critical Care Medicine
DX: R91.8 Other nonspecific abnormal finding of lung field (principal); M06.9 Rheumatoid arthritis, unspecified; R50.9 Fever, unspecified
CPT/HCPCS: 87070; 87077; 87181; 87205

== ENCOUNTER 2022-05-07 09:03 | Outpatient (CLI) | payer MEDICARE, MEDICAID ==
[2022-05-07 09:48] LABS: THYROID STIMULATING HORMONE 0.75 uIU/mL (0.34-5.60)
== END 2022-05-07 09:04 | disposition home or self-care (01) ==
LOC: LAB 09:03
PROVIDERS: ATTEND Internal Medicine
DX: E04.1 Nontoxic single thyroid nodule (principal); M05.79 Rheumatoid arthritis with rheumatoid factor of multiple sites without organ or systems involvement; D84.821 Immunodeficiency due to drugs; Z79.899 Other long term (current) drug therapy
CPT/HCPCS: 36415; 81599; 84443; 84480

== ENCOUNTER 2022-06-26 14:25 | Outpatient (CLI) | payer MEDICARE, MEDICAID ==
[2022-06-26 14:57] LABS: BASOPHILS % (AUTO) 0.8 %; EOSINOPHILS % (AUTO) 0.6 %; HCT - HEMATOCRIT 33.1 % (37.0-47.0); HGB - HEMOGLOBIN 10.5 g/dL (12.0-16.0); LYMPHOCYTES # (AUTO) 0.9 10^3/uL (1.5-3.5); LYMPHOCYTES % (AUTO) 17.9 %; MEAN CORPUSCULAR HEMOGLOBIN 28.1 pg (27.0-31.0); MEAN CORPUSCULAR HGB CONC 31.7 g/dL (32.0-36.0); MEAN CORPUSCULAR VOLUME 88.5 fL (81.0-99.0); MEAN PLATELET VOLUME 9.2 fL (7.9-10.8); MONOCYTES # (AUTO) 0.3 10^3/uL (0.0-1.0); MONOCYTES % (AUTO) 5.2 %; NEUTROPHILS # (AUTO) 3.9 10^3/uL (1.5-6.6); NEUTROPHILS % (AUTO) 75.1 %; PLT - PLATELET COUNT 181 10^3/uL (130-450); RED BLOOD COUNT 3.74 10^6/uL (4.20-5.40); RED CELL DISTRIBUTION WIDTH 15.1 % (12.0-15.0); WHITE BLOOD COUNT 5.2 x10^3/uL (4.8-10.8)
[2022-06-26 15:10] LABS: ALBUMIN 3.3 g/dL (3.2-5.5); BILIRUBIN,TOTAL 0.5 mg/dL (0.2-1.0); CALCIUM 9.3 mg/dL (8.5-10.3); CREATININE 0.5 mg/dL (0.4-1.0); TOTAL PROTEIN 6.6 g/dL (6.7-8.2)
== END 2022-06-26 14:26 | disposition home or self-care (01) ==
LOC: LAB 14:25
PROVIDERS: ATTEND Internal Medicine Rheumatology
DX: M81.8 Other osteoporosis without current pathological fracture (principal); D84.821 Immunodeficiency due to drugs; Z79.899 Other long term (current) drug therapy; M05.79 Rheumatoid arthritis with rheumatoid factor of multiple sites without organ or systems involvement
CPT/HCPCS: 36415; 80053; 81599; 85025

== ENCOUNTER 2022-06-26 15:03 | Outpatient (CLI) | payer MEDICARE, MEDICAID ==
--- NOTE | 2022-06-26 16:20 | XRAY Report ---
PROCEDURE: Hip w/Pelvis 2-3V RT INDICATIONS: RIGHT HIP PAIN TECHNIQUE: AP pelvis with lateral view(s) of the right hip(s). COMPARISON: None. FINDINGS: Bones: No fractures or dislocations. Pelvic ring appears intact. No suspicious bony lesions. Joanna re left hip joint space narrowing and moderate left hip joint periarticular osteophyte formation. Mod erate right hip joint space narrowing and mild right hip periarticular osteophyte formation. Findings just above left femoral head/neck junction buttressing. Soft tissues: The visualized bowel gas pattern is normal. No suspicious soft tissue calcifications. IMPRESSION: 1. Left greater than right hip joint osteoarthritis. 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 This could be further assessed with MRI, if clinically indicated. 2. No acute fracture. No osseous lesion. If symptoms and/or clinical suspicion for pathology continue , further assessment with repeat plain films, or advanced imaging (e.g., CT, MRI, or bone scan) is re commended for further assessment. Reviewed by: Kavin Parsons MD on 06/26/2022 4:18 PM PDT Approved by: Kavin Parsons MD on 06/26/2022 4:18 PM PDT Station ID: [id number]
--- NOTE | 2022-06-26 17:29 | XRAY Report ---
PROCEDURE: Ribs w/PA Chest RT INDICATIONS: RIGHT HIP PAIN TECHNIQUE: 2 views of the right ribs were acquired, along with a single view chest. COMPARISON: CXR 02/20/2022. FINDINGS: Surgical changes and devices: Suture material at the right lower lobe. Cholecystectomy clips. Bones and chest wall: Undulation of the right seventh and eighth ribs are again seen. No dislocations . No suspicious bony lesions. Scoliosis. Overlying soft tissues appear unremarkable. Lungs and pleura: No pleural effusions or pneumothorax. Lungs appear clear. Mediastinum: Mediastinal contours appear normal. Heart size is normal. IMPRESSION: Prior right 7-8 rib fractures. Scarring at the right lung base. Reviewed by: Nakul Cobb MD on 06/26/2022 5:27 PM PDT Approved by: Nakul Cobb MD on 06/26/2022 5:27 PM PDT Station ID: [id number]
== END 2022-06-26 15:04 | disposition home or self-care (01) ==
LOC: DI 15:03
PROVIDERS: ATTEND Nurse Practitioner Family
DX: R07.81 Pleurodynia (principal); Z87.81 Personal history of (healed) traumatic fracture; M16.0 Bilateral primary osteoarthritis of hip; M81.8 Other osteoporosis without current pathological fracture; D84.821 Immunodeficiency due to drugs; Z79.899 Other long term (current) drug therapy; M05.79 Rheumatoid arthritis with rheumatoid factor of multiple sites without organ or systems involvement
CPT/HCPCS: 36415; 80053; 81599; 85025

== ENCOUNTER 2022-07-29 09:22 | Outpatient (CLI) | payer MEDICARE, MEDICAID ==
[2022-07-29 09:42] LABS: BASOPHILS % (AUTO) 0.7 %; EOSINOPHILS # (AUTO) 0.1 10^3/uL (0.0-0.7); EOSINOPHILS % (AUTO) 1.4 %; HCT - HEMATOCRIT 33.5 % (37.0-47.0); HGB - HEMOGLOBIN 10.6 g/dL (12.0-16.0); LYMPHOCYTES # (AUTO) 0.9 10^3/uL (1.5-3.5); LYMPHOCYTES % (AUTO) 21.9 %; MEAN CORPUSCULAR HEMOGLOBIN 29.2 pg (27.0-31.0); MEAN CORPUSCULAR HGB CONC 31.6 g/dL (32.0-36.0); MEAN CORPUSCULAR VOLUME 92.3 fL (81.0-99.0); MEAN PLATELET VOLUME 9.4 fL (7.9-10.8); MONOCYTES # (AUTO) 0.3 10^3/uL (0.0-1.0); MONOCYTES % (AUTO) 8.2 %; NEUTROPHILS # (AUTO) 2.8 10^3/uL (1.5-6.6); NEUTROPHILS % (AUTO) 67.1 %; PLT - PLATELET COUNT 201 10^3/uL (130-450); RED BLOOD COUNT 3.63 10^6/uL (4.20-5.40); RED CELL DISTRIBUTION WIDTH 15.7 % (12.0-15.0); WHITE BLOOD COUNT 4.2 x10^3/uL (4.8-10.8)
[2022-07-29 10:01] LABS: ALBUMIN 3.8 g/dL (3.2-5.5); ALBUMIN/GLOBULIN RATIO 1.3 (1.0-2.2); ALKALINE PHOSPHATASE 72 IU/L (42-121); ALT ALANINE AMINOTRANSFERASE 15 IU/L (10-60); AST ASPARTATE AMINOTRANSFERASE 21 IU/L (10-42); BILIRUBIN,TOTAL 0.7 mg/dL (0.2-1.0); BUN - BLOOD UREA NITROGEN 17 mg/dL (6-20); CALCIUM 8.9 mg/dL (8.5-10.3); CARBON DIOXIDE - CO2 29 mmol/L (21-32); CHLORIDE 102 mmol/L (101-111); CHOL/HDL RATIO 2.9 (<4.4); CHOLESTEROL 199 mg/dL; CREATININE 0.6 mg/dL (0.4-1.0); GFR - MDRD 99 (>89); GLUCOSE 82 mg/dL (70-100); HDL CHOLESTEROL 69 mg/dL; LDL CHOLESTEROL,CALCULATED 97 mg/dL; LDL/HDL RATIO 1.4 (<4.4); POTASSIUM 3.7 mmol/L (3.5-5.0); SODIUM 138 mmol/L (135-145); TOTAL PROTEIN 6.8 g/dL (6.7-8.2); TRIGLYCERIDES 165 mg/dL; VLDL CHOLESTEROL 33 mg/dL
[2022-07-29 10:29] LABS: CRP - C-REACTIVE PROTEIN < 1.0 mg/dL (0-1.0)
== END 2022-07-29 09:23 | disposition home or self-care (01) ==
LOC: LAB 09:22
PROVIDERS: ATTEND Internal Medicine Rheumatology
DX: M05.79 Rheumatoid arthritis with rheumatoid factor of multiple sites without organ or systems involvement (principal); D84.821 Immunodeficiency due to drugs; Z79.899 Other long term (current) drug therapy
CPT/HCPCS: 36415; 80053; 80061; 83721; 85025; 85651; 86140

== ENCOUNTER 2022-08-30 08:00 | Outpatient (CLI) | payer MEDICARE, MEDICAID ==
--- NOTE | 2022-08-30 14:36 | XRAY Report ---
PROCEDURE: Hand 3 View LT INDICATIONS: LEFT HAND PAIN TECHNIQUE: 3 views of the hand(s) acquired. COMPARISON: None FINDINGS: Bones: No fractures or dislocations. No suspicious bony lesions. Severe arthritic changes are pres ent with severe CMC as well as IP degenerative disc space narrowing. There are multiple joints with s ubluxation including the second through fourth MCP joints. As well as significant periarticular osteo phytes. First digit DIP fusion is present. There is near complete radiocarpal as well as are metacarp al fusion. Significant fusion is also present within the carpal bones. Soft tissues: No suspicious soft tissue calcifications. IMPRESSION: Severe arthritic changes as described above. No definitive fractures identified. However, if concern persists, CT is recommended as given degree of arthritic change, underlying fracture cannot be defini tively excluded. Reviewed by: Delmis Allison MD on 08/30/2022 2:35 PM PDT Approved by: Delmis Allison MD on 08/30/2022 2:35 PM PDT Station ID: [id number]
== END 2022-08-30 08:01 | disposition home or self-care (01) ==
LOC: DI.S 08:00
PROVIDERS: ATTEND Physician Assistant
DX: M19.042 Primary osteoarthritis, left hand (principal)

== ENCOUNTER 2022-09-23 18:21 | Outpatient (CLI) | payer MEDICARE, MEDICAID ==
--- NOTE | 2022-09-24 15:46 | XRAY Report ---
PROCEDURE: Clavicle RT INDICATIONS: RIGHT CLAVICLE PAIN TECHNIQUE: 2 views of the clavicle were acquired. COMPARISON: Chest x-ray 02/20/2022, x-ray RIBS 06/26/2022 FINDINGS: Bones: Minimally displaced mid right clavicular fracture is present. There is appearance of mild heal ing osteophytes. No suspicious bony lesions. Soft tissues: No suspicious soft tissue calcifications. IMPRESSION: Acute/subacute appearing minimally displaced right midclavicular fracture. Reviewed by: Delmis Allison MD on 09/24/2022 3:45 PM PST Approved by: Delmis Allison MD on 09/24/2022 3:45 PM PST Station ID: [id number]
== END 2022-09-23 18:22 | disposition home or self-care (01) ==
LOC: DI.S 18:21
PROVIDERS: ATTEND Physician Assistant
DX: S42.021A Displaced fracture of shaft of right clavicle, initial encounter for closed fracture (principal)

== ENCOUNTER 2022-10-18 16:03 | Outpatient (CLI) | payer MEDICARE, MEDICAID ==
--- NOTE | 2022-10-18 17:00 | Ultrasound Report ---
PROCEDURE: Duplex Ext Veins Bilateral INDICATIONS: AMOS GARCIA TECHNIQUE: Real-time imaging, as well as color and pulse Doppler interrogation, were performed of the deep veins of both legs from the inguinal ligament to the popliteal fossa. COMPARISON: None FINDINGS: The deep veins are normally compressible, and free of intraluminal thrombus. Color and pu lse Doppler demonstrate normal phasic intravascular flow. There is normal augmentation response to d istal compression maneuver. Superficial left focal popliteal edema measuring 4.6 x 3.9 x 0.9 cm. IMPRESSION: Negative for DVT in the bilateral lower extremities. Reviewed by: Maximo Krishna MD on 10/18/2022 3:59 PM [facility] Approved by: Maximo Krishna MD on 10/18/2022 3:59 PM [facility] Station ID: [id number]
== END 2022-10-18 16:04 | disposition home or self-care (01) ==
LOC: DI 16:03
PROVIDERS: ATTEND Nurse Practitioner Family
DX: R60.0 Localized edema (principal)
CPT/HCPCS: 93970

== ENCOUNTER 2022-12-07 09:14 | Emergency (ER) | payer MEDICARE, MEDICAID ==
[2022-12-07 09:36] VITALS: BP 146/58
--- OUTSIDE RECORDS SUMMARY | 2022-12-07 09:47 | EXTERNAL MEDICAL SUMMARY RPT | Continuity of Care Document ---
:1955 External Reference #:[id number] Author Organization [facility] Address [address] [place] [address] Phone Care Team Providers Name Role Phone Unavailable Unavailable Unavailable Strempel Patient Registrar, Elly Unavailable Lashayvakeke Damon Pa-C, Navneet Unavailable Unavailable Strempel Patient Registrar, Elly Unavailable Unavai lablucy Allergies No information. Encounters No information. Functional Status No information. Immunizations No information. Medications date description facility 2022-09-23 00:00 upadacitinib [facility] 2022-09-23 00:00 upadacitinib [facility] 2022-09-24 00:00 upadacitinib [facility] 2022-09-23 00:00 HYDROCHLOROTHIAZIDE [facility] [place] [facility] 2022-09-23 00:00 HYDROCHLOROTHIAZIDE [facility] [place] [facility] 2022-09-24 00:00 HYDROCHLOROTHIAZIDE [facility] [place] [facility] 2022-09-23 00:00 naloxone [facility] 2022-09-23 00:00 naloxone [facility] 2022-09-24 00:00 naloxone [facility] 2022-09-23 00:00 HYDROCHLOROTHIAZIDE [facility] [place] [facility] 2022-09-23 00:00 HYDROCHLOROTHIAZIDE [facility] [place] [facility] 2022-09-24 00:00 HYDROCHLOROTHIAZIDE [facility] [place] [facility] 2022-09-23 00:00 methocarbamol Walk[facility] 2022-09-23 00:00 methocarbamol [facility] [place] 2022-09-24 00:00 methocarbamol [facility] [place] 2022-09-23 00:00 naloxone [facility] [place] 2022-09-23 00:00 naloxone [facility] [place] 2022-09-24 00:00 naloxone [facility] [place] 2022-09-23 00:00 naloxone [facility] [place] 2022-09-23 00:00 naloxone [facility] [place] 2022-09-24 00:00 naloxone [facility] [place] 2022-09-23 00:00 methocarbamol [facility] [place] 2022-09-23 00:00 methocarbamol [facility] [place] 2022-09-24 00:00 methocarbamol [facility] [place] 2022-09-23 00:00 upadacitinib [facility] [place] 2022-09-23 00:00 upadacitinib [facility] [place] 2022-09-24 00:00 upadacitinib [facility] [place] 2022-09-23 00:00 upadacitinib [facility] [place] 2022-09-23 00:00 upadacitinib [facility] [place] 2022-09-24 00:00 upadacitinib [facility] [place] 2022-09-23 00:00 alendronate [facility] [place] 2022-09-23 00:00 alendronate [facility] [place] 2022-09-24 00:00 alendronate [facility] [place] 2022-09-23 00:00 gabapentin [facility] [place] 2022-09-23 00:00 gabapentin [facility] [place] 2022-09-24 00:00 gabapentin [facility] [place] 2022-09-23 00:00 HYDROCHLOROTHIAZIDE [facility] [place] [facility] [place] 2022-09-23 00:00 HYDROCHLOROTHIAZIDE [facility] [place] [facility] [place] 2022-09-24 00:00 HYDROCHLOROTHIAZIDE [facility] [place] [facility] [place] 2022-09-23 00:00 methocarbamol [facility] [place] 2022-09-23 00:00 methocarbamol [facility] [place] 2022-09-24 00:00 methocarbamol [facility] [place] 2022-09-23 00:00 zolpidem [facility] [place] 2022-09-23 00:00 zolpidem [facility] [place] 2022-09-24 00:00 zolpidem [facility] [place] 2022-09-23 00:00 escitalopram oxalate [facility] [place] 2022-09-23 00:00 escitalopram oxalate [facility] [place] 2022-09-24 00:00 escitalopram oxalate [facility] [place] 2022-09-23 00:00 losartan [facility] [place] 2022-09-23 00:00 losartan [facility] [place] 2022-09-24 00:00 losartan [facility] [place] 2022-09-23 00:00 HYDROCHLOROTHIAZIDE [facility] [place] [facility] [place] 2022-09-23 00:00 HYDROCHLOROTHIAZIDE [facility] [place] [facility] [place] 2022-09-24 00:00 HYDROCHLOROTHIAZIDE Walk[facility] [place] 2022-09-23 00:00 losartan [facility] [place] 2022-09-23 00:00 losartan [facility] [place] 2022-09-24 00:00 losartan [facility] [place] 2022-09-23 00:00 gabapentin [facility] [place] 2022-09-23 00:00 gabapentin [facility] [place] 2022-09-24 00:00 gabapentin [facility] [place] 2022-09-23 00:00 HYDROCODONE-ACETAMINOPHEN [facility] [place] 2022-09-23 00:00 HYDROCODONE-ACETAMINOPHEN [facility] [place] 2022-09-24 00:00 HYDROCODONE-ACETAMINOPHEN [facility] [place] 2022-09-23 00:00 HYDROCODONE-ACETAMINOPHEN [facility] [place] 2022-09-23 00:00 HYDROCODONE-ACETAMINOPHEN [facility] [place] 2022-09-24 00:00 HYDROCODONE-ACETAMINOPHEN [facility] [place] 2022-09-23 00:00 zolpidem [facility] [place] 2022-09-23 00:00 zolpidem [facility] [place] 2022-09-24 00:00 zolpidem [facility] [place] 2022-09-23 00:00 escitalopram oxalate [facility] [place] 2022-09-23 00:00 escitalopram oxalate [facility] [place] 2022-09-24 00:00 escitalopram oxalate [facility] [place] 2022-09-23 00:00 gabapentin [facility] [place] 2022-09-23 00:00 gabapentin [facility] [place] 2022-09-24 00:00 gabapentin [facility] [place] 2022-09-23 00:00 zolpidem [facility] [place] 2022-09-23 00:00 zolpidem [facility] [place] 2022-09-24 00:00 zolpidem [facility] [place] 2022-09-23 00:00 alendronate [facility] [place] 2022-09-23 00:00 alendronate [facility] [place] 2022-09-24 00:00 alendronate [facility] [place] 2022-09-23 00:00 HYDROCODONE-ACETAMINOPHEN [facility] [place] 2022-09-23 00:00 HYDROCODONE-ACETAMINOPHEN [facility] [place] 2022-09-24 00:00 HYDROCODONE-ACETAMINOPHEN [facility] [place] 2022-09-23 00:00 upadacitinib [facility] [place] 2022-09-23 00:00 upadacitinib [facility] [place] 2022-09-24 00:00 upadacitinib [facility] [place] 2022-09-23 00:00 escitalopram oxalate [facility] [place] 2022-09-23 00:00 escitalopram oxalate [facility] [place] 2022-09-24 00:00 escitalopram oxalate [facility] [place] 2022-09-23 00:00 alendronate [facility] [place] 2022-09-23 00:00 alendronate [facility] [place] 2022-09-24 00:00 alendronate [facility] [place] 2022-09-23 00:00 losartan [facility] [place] 2022-09-23 00:00 losartan [facility] [place] 2022-09-24 00:00 losartan [facility] [place] 2022-09-23 00:00 gabapentin [facility] [place] 2022-09-23 00:00 gabapentin [facility] [place] 2022-09-24 00:00 gabapentin [facility] [place] 2022-09-23 00:00 methocarbamol [facility] [place] 2022-09-23 00:00 methocarbamol [facility] [place] 2022-09-24 00:00 methocarbamol [facility] [place] 2022-09-23 00:00 escitalopram oxalate [facility] [place] 2022-09-23 00:00 escitalopram oxalate [facility] [place] 2022-09-24 00:00 escitalopram oxalate [facility] [place] 2022-09-23 00:00 zolpidem [facility] [place] 2022-09-23 00:00 zolpidem [facility] [place] 2022-09-24 00:00 zolpidem [facility] [place] 2022-09-23 00:00 alendronate [facility] [place] 2022-09-23 00:00 alendronate [facility] [place] 2022-09-24 00:00 alendronate [facility] [place] 2022-09-23 00:00 naloxone [facility] [place] 2022-09-23 00:00 naloxone [facility] [place] 2022-09-24 00:00 naloxone [facility] [place] 2022-09-23 00:00 losartan [facility] [place] 2022-09-23 00:00 losartan [facility] [place] 2022-09-24 00:00 losartan [facility] [place] Problems date description facility 2022-09-23 00:00 Closed fracture of shaft of right [facility] clavicle [facility] [place] 2022-09-23 00:00 Closed fracture of shaft of right [facility] clavicle & [facility] [place] 2022-09-23 00:00 Closed fracture of shaft of right Walk [facility] clavicle & [facility] [place] 2022-09-23 00:00 Chronic obstructive lung disease [facility] [place] 2022-09-23 00:00 Chronic obstructive lung disease [facility] [place] 2022-09-23 00:00 Clavicle pain [facility] [place] 2022-09-23 00:00 Clavicle pain [facility] [place] 2022-09-23 00:00 Clavicle pain [facility] [place] 2022-09-23 00:00 Mantoux: positive [facility] [place] 2022-09-23 00:00 Mantoux: positive [facility] [place] 2022-09-23 00:00 Other primary cardiomyopathies [facility] [place] 2022-09-23 00:00 Other primary cardiomyopathies [facility] [place] 2022-09-23 00:00 Family history of breast cancer [facility] [place] 2022-09-23 00:00 Family history of breast cancer [facility] [place] 2022-09-23 00:00 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[facility] [place] 2022-09-23 00:00 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[facility] [place] 2022-09-23 00:00 Chronic airway obstruction, not [facility] Primary [facility] elsewhere classified & [facility] [place] 2022-09-23 00:00 Chronic airway obstruction, not [facility] elsewhere classified & [facility] [place] 2022-09-23 00:00 Rheumatoid arthritis [facility] [place] 2022-09-23 00:00 Rheumatoid arthritis [facility] [place] 2022-09-23 00:00 Pain in joint involving shoulder [facility] [place] 2022-09-23 00:00 Pain in joint involving shoulder [facility] [place] 2022-09-23 00:00 Pain in joint involving shoulder [facility] [place] 2022-09-23 00:00 Nonspecific reaction to test for [facility] tuberculosis [facility] [place] 2022-09-23 00:00 Nonspecific reaction to test for [facility] tuberculosis [facility] [place] 2022-09-23 00:00 Cardiomyopathy [facility] [place] 2022-09-23 00:00 Cardiomyopathy [facility] [place] 2022-09-23 00:00 Cardiomyopathy, unspecified [facility] [place] 2022-09-23 00:00 Cardiomyopathy, unspecified [facility] [place] 2022-09-23 00:00 Chronic obstructive pulmonary [facility] Primary Care disease, unspecified & [facility] [place] 2022-09-23 00:00 Chronic obstructive pulmonary [facility] Care disease, unspecified & [facility] [place] 2022-09-23 00:00 Rheumatoid arthritis, unspecified [facility] [place] 2022-09-23 00:00 Rheumatoid arthritis, unspecified [facility] [place] 2022-09-23 00:00 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 [place] 2022-09-23 00:00 Other specified disorders of bone, [facility] other site & [facility] [place] 2022-09-23 00:00 Other specified disorders of bone, [facility] other site [facility] [place] 2022-09-23 00:00 Other specified disorders of bone, [facility] other site [facility] [place] 2022-09-23 00:00 Nonspecific reaction to tuberculin [facility] skin test without active tuberculosis & [facility] [place] 2022-09-23 00:00 Nonspecific reaction to tuberculin [facility] skin test without active tuberculosis & [facility] [place] 2022-09-23 00:00 Nondisplaced fracture of shaft of Walk- In [facility] Primary Care right clavicle, initial encounter for & Anc[facility] Services [place] closed fracture 2022-09-23 00:00 Nondisplaced fracture of shaft of Walk- In [facility] Primary Care right clavicle, initial encounter for & Ancillary Services [place] closed fracture 2022-09-23 00:00 Nondisplaced fracture of shaft of Walk- In [facility] Primary Care right clavicle, initial encounter for & Ancillary Services [place] closed fracture 2022-09-23 00:00 Family history of malignant neoplasm [facility]-In Clinic Primary Care of breast & [facility] [place] 2022-09-23 00:00 Family history of malignant neoplasm [facility]-In [facility] of breast & [facility] [place] 2022-09-24 00:00 Chronic obstructive lung disease [facility] [place] 2022-09-24 00:00 Mantoux: positive Walk[facility]In [facility] Care & [facility] [place] 2022-09-24 00:00 Other primary cardiomyopathies [facility] [place] 2022-09-24 00:00 Family history of breast cancer Walk-I [facility] Primary Care & [facility] [place] 2022-09-24 00:00 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[facility] [place] 2022-09-24 00:00 Chronic airway obstruction, not [facility] n [facility] Primary Care elsewhere classified & Ancillary Service s [place] 2022-09-24 00:00 Rheumatoid arthritis [facility] [place] 2022-09-24 00:00 Nonspecific reaction to test for [facility]- In [facility] Primary Care tuberculosis & Ancillary Services [place] 2022-09-24 00:00 Cardiomyopathy [facility] [place] 2022-09-24 00:00 Cardiomyopathy, unspecified [facility]In [facility] in Primary Care & [facility] Services [place] 2022-09-24 00:00 Chronic obstructive pulmonary [facility]In [facility] Primary Care disease, unspecified & Ancillary Service s [place] 2022-09-24 00:00 Rheumatoid arthritis, unspecified [facility] [place] 2022-09-24 00:00 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] [facility] & [facility] [place] 2022-09-24 00:00 Nonspecific reaction to tuberculin [facility] Primary Care skin test without active tuberculosis & [facility] Services [place] 2022-09-24 00:00 Family history of malignant neoplasm [facility] alk-In [facility] Primary Care of breast & [facility] [place] Procedures date description facility 2022-09-23 00:00 Visit Code Hold [facility] [place] 2022-09-23 00:00 Visit Code Hold [facility] [place] 2022-09-23 00:00 Visit Code Hold [facility] [place] Results/Labs No information. Social History date description facility 2022-09-23 00:00 Current every day smoker [facility] [place] 2022-09-23 00:00 Current every day smoker [facility] [place] 2022-09-23 00:00 Current every day smoker [facility] [place] Vital Signs date measurement value units 2022-09-23 00:00 BMI 24.07 kg/m2 2022-09-23 00:00 BP_diastolic 79 mmHg 2022-09-23 00:00 BP_systolic 149 mmHg 2022-09-23 00:00 heart_rate 77 /min 2022-09-23 00:00 height_metric 156.21 cm 2022-09-23 00:00 height_standard 61.5 in 2022-09-23 00:00 respiration_rate 16 /min 2022-09-23 00:00 temperature_metric 36.44 C 2022-09-23 00:00 temperature_standard 97.6 F 2022-09-23 00:00 weight_metric 58.51 kg 2022-09-23 00:00 weight_standard 129 lb
[2022-12-07 09:59] LABS: GLUCOSE, URINE (UA) NEGATIVE (NEGATIVE); KETONES,URINE (UA) 40 mg/dL (NEGATIVE); LEUKOCYTE ESTERASE, URINE NEGATIVE (NEGATIVE); NITRITE,URINE NEGATIVE (NEGATIVE); OCCULT BLOOD,URINE TRACE-INTA (NEGATIVE); PH,URINE 6.5 PH (5.0-7.5); PROTEIN,URINE TRACE mg/dL (NEGATIVE); UROBILINOGEN,URINE 0.2 (NORMAL) E.U./dL (NORMAL)
[2022-12-07 10:02] LABS: BILIRUBIN,URINE NEGATIVE (NEGATIVE); CLARITY,URINE CLEAR (CLEAR); ICTOTEST,URINE NEGATIVE
== END 2022-12-07 12:01 | disposition left against medical advice (07) ==
LOC: ED 09:14
DX: Z53.29 Procedure and treatment not carried out because of patient's decision for other reasons (principal)
CPT/HCPCS: 80053; 81001; 81003; 83690; 85025; 87086

== ENCOUNTER 2023-04-14 09:53 | Outpatient (CLI) | payer MEDICARE ==
--- NOTE | 2023-04-14 10:34 | Ultrasound Report ---
PROCEDURE: Duplex Ext Veins Left INDICATIONS: LEFT LEG PAIN TECHNIQUE: Real-time imaging, as well as color and pulse Doppler interrogation, were performed of the lower extr emity deep veins from the inguinal ligament to the popliteal fossa. COMPARISON: 10/18/2022 FINDINGS: The deep veins are normally compressible, and free of intraluminal thrombus. Color and pu lse Doppler demonstrate normal phasic intraluminal flow. There is normal augmentation response to di stal compression maneuver. IMPRESSION: Negative examination for DVT. Reviewed by: Maximo Krishna MD on 04/14/2023 10:32 AM PDT Approved by: Maximo Krishna MD on 04/14/2023 10:32 AM PDT Station ID: [id number]
== END 2023-04-14 09:54 | disposition home or self-care (01) ==
LOC: DI 09:53
PROVIDERS: ATTEND Internal Medicine
DX: R60.0 Localized edema (principal); M79.662 Pain in left lower leg

== ENCOUNTER 2023-05-22 10:21 | Outpatient (CLI) | payer MEDICARE, MEDICAID ==
--- NOTE | 2023-05-23 09:22 | Mammography Report ---
BILATERAL DIGITAL SCREENING MAMMOGRAM 3D/2D: 05/22/2023 CLINICAL: Routine screening. Comparison is made to exams dated: 05/07/2022 mammogram, 03/28/2021 mammogram, and 03/31/2020 mammogram - [facility]. There are scattered areas of fibroglandular density in both breasts (category b / 25%-50% glandular t issue). There are benign calcifications in the right breast. There also is a biopsy clip in the right breast . No significant masses, calcifications, or other findings are seen in either breast. There has been no significant interval change. IMPRESSION: BENIGN There is no mammographic evidence of malignancy. A 1 year screening mammogram is recommended. Based on the Tyrer Cuzick model (a risk assessment model) the patients lifetime risk is 7.1% and her 10 year risk is 3.9%. According to the ACR, ACS, and NCCN guidelines, an annual breast MRI exam eloy g with mammogram is recommended if the patients lifetime risk is 20% or greater. This exam was interpreted at Station ID: [id number]. NOTE: For mammograms, a report in lay terms will be sent to the patient. Approximately 15% of breast malignancies will not be visualized mammographically. In the management of a palpable breast mass, a negative mammogram must not discourage biopsy of a clinically suspicious lesion. Electronically Signed By: Darren yeager/marc:05/22/2023 13:49:44 letter sent: No_Letter ACR BI-RADS Category 2: Benign Finding(s) 3342F PARENCHYMAL PATTERN: (A) - The breast(s) demonstrate(s) scattered fibroglandular densities. BI-RADS CATEGORY: (2) - 2 Mammogram [id number] 1 year screening LATERALITY: (B)
== END 2023-05-22 10:22 | disposition home or self-care (01) ==
LOC: DI 10:21
PROVIDERS: ATTEND Internal Medicine
DX: Z12.31 Encounter for screening mammogram for malignant neoplasm of breast (principal)

== ENCOUNTER 2023-08-06 10:14 | Outpatient (CLI) | payer MEDICARE ==
[2023-08-06 10:29] LABS: BASOPHILS % (AUTO) 0.6 %; EOSINOPHILS # (AUTO) 0.1 10^3/uL (0.0-0.7); EOSINOPHILS % (AUTO) 2.1 %; LYMPHOCYTES # (AUTO) 0.9 10^3/uL (1.5-3.5); LYMPHOCYTES % (AUTO) 17.8 %; MEAN CORPUSCULAR HEMOGLOBIN 28.7 pg (27.0-31.0); MEAN CORPUSCULAR HGB CONC 31.4 g/dL (32.0-36.0); MEAN CORPUSCULAR VOLUME 91.4 fL (81.0-99.0); MEAN PLATELET VOLUME 9.5 fL (7.9-10.8); MONOCYTES # (AUTO) 0.4 10^3/uL (0.0-1.0); NEUTROPHILS # (AUTO) 3.7 10^3/uL (1.5-6.6); NEUTROPHILS % (AUTO) 70.7 %; PLT - PLATELET COUNT 163 10^3/uL (130-450); RED BLOOD COUNT 3.83 10^6/uL (4.20-5.40); RED CELL DISTRIBUTION WIDTH 15.9 % (12.0-15.0); WHITE BLOOD COUNT 5.2 x10^3/uL (4.8-10.8)
--- NOTE | 2023-08-06 10:57 | XRAY Report ---
PROCEDURE: Ribs w/PA Chest LT INDICATIONS: PLUR TECHNIQUE: 3 views of the right ribs were acquired, along with a single view chest. COMPARISON: None. FINDINGS: Surgical changes and devices: None. Bones and chest wall: No fractures or dislocations. No suspicious bony lesions. Overlying soft tis sues appear unremarkable. Lungs and pleura: No pleural effusions or pneumothorax. Lungs appear clear. Mediastinum: Mediastinal contours appear normal. Heart size is normal. IMPRESSION: No visualized acute fracture or dislocation. However, occult injury cannot be excluded. Recommend chelsea rt interval imaging follow-up in 7-10 days as clinically indicated for additional evaluation. Reviewed by: Delmis Allison MD on 08/06/2023 10:55 AM PDT Approved by: Delmis Allison MD on 08/06/2023 10:55 AM PDT Station ID: [id number]
== END 2023-08-06 10:15 | disposition home or self-care (01) ==
LOC: DI 10:14
PROVIDERS: ATTEND Emergency Medicine
DX: R07.81 Pleurodynia (principal); R76.12 Nonspecific reaction to cell mediated immunity measurement of gamma interferon antigen response without active tuberculosis
CPT/HCPCS: 36415; 85025

== ENCOUNTER 2023-09-17 10:10 | Outpatient (CLI) | payer MEDICARE ==
--- NOTE | 2023-09-17 18:31 | Ultrasound Report ---
PROCEDURE: Head or Neck Soft Tissue INDICATIONS: THYROID NODULE TECHNIQUE: Real-time scanning was performed of the thyroid gland, with image documentation. COMPARISON: 05/31/2022 FINDINGS: Right: Thyroid lobe measures 5.9 x 1.9 x 1.6 cm, and is homogeneous in echotexture. Left: Thyroid lobe measures 5.0 x 1.6 x 1.3 cm, and is homogenous in echotexture. Isthmus: 5 mm thick. Nodule number: One Location: Right superior Size: 0.7 x 0.6 x 0.6 cm. Composition: Solid. Echogenicity: Isoechoic. Shape: wider than tall (0 points). Margins: Smooth (0 points). Echogenic foci: None (0 points). Total points: 3 ACR TI-RADS category: 3 Nodule number: Two Location: Right mid Size: 2.7 x 1.3 x 2.7 cm, previously 2.5 x 1.4 x 2.6 cm cm. Composition: Spongiform. Echogenicity: Hypoechoic. Shape: wider than tall (0 points). Margins: Smooth (0 points). Echogenic foci: Punctate. Total points: 5 ACR TI-RADS category: 4 Nodule number: Three Location: Left superior Size: 0.7 x 0.3 x 0.7 cm. Composition: Solid. Echogenicity: Hypoechoic. Shape: wider than tall (0 points). Margins: Smooth (0 points). Echogenic foci: None (0 points). Total points: 4 ACR TI-RADS category: 4 Nodule number: Four Location: Left superior Size: 1.0 x 0.6 x 0.8 cm. Composition: Spongiform. Echogenicity: Hypoechoic. Shape: wider than tall (0 points). Margins: Smooth (0 points). Echogenic foci: Punctate. Total points: 5 ACR TI-RADS category: 4 IMPRESSION: Stable bilateral thyroid nodules. Best practice guidelines suggest FNA of nodule #2 and follow-up of nodules numbers 3 and #4. Schedule below ACR TI-RADS definitions and recommendations: TI-RADS 1 (benign): 0 points. FNA not needed. TI-RADS 2 (not suspicious): 2 points. FNA not needed. TI-RADS 3 (mildly suspicious): 3 points. "FNA if 2.5 cm or larger, follow up if 1.5 cm or larger (at 1, 3, and 5 years). TI-RADS 4 (moderately suspicious): 4-6 points. "FNA if 1.5 cm or larger, follow up if 1 cm or larger (at 1, 2, 3, and 5 years). TI-RADS 5 (highly suspicious): 7 points or more. "FNA if 1 cm or larger, follow up if 0.5 cm or larger (every year for 5 years). Reviewed by: Joe Zepeda MD on 09/17/2023 5:30 PM AKST Approved by: Joe Zepeda MD on 09/17/2023 5:30 PM AKST Station ID: [id number]
== END 2023-09-17 10:11 | disposition home or self-care (01) ==
LOC: DI 10:10
PROVIDERS: ATTEND Internal Medicine
DX: E04.2 Nontoxic multinodular goiter (principal); R07.81 Pleurodynia
CPT/HCPCS: 36415; 84439; 84443; 84480; 85025

== ENCOUNTER 2023-09-17 10:15 | Outpatient (CLI) | payer MEDICARE ==
[2023-09-17 10:27] LABS: BASOPHILS % (AUTO) 0.5 %; EOSINOPHILS % (AUTO) 0.5 %; HCT - HEMATOCRIT 36.1 % (37.0-47.0); HGB - HEMOGLOBIN 11.4 g/dL (12.0-16.0); LYMPHOCYTES # (AUTO) 0.8 10^3/uL (1.5-3.5); LYMPHOCYTES % (AUTO) 18.8 %; MEAN CORPUSCULAR HEMOGLOBIN 29.2 pg (27.0-31.0); MEAN CORPUSCULAR HGB CONC 31.6 g/dL (32.0-36.0); MEAN CORPUSCULAR VOLUME 92.6 fL (81.0-99.0); MEAN PLATELET VOLUME 9.9 fL (7.9-10.8); MONOCYTES # (AUTO) 0.3 10^3/uL (0.0-1.0); MONOCYTES % (AUTO) 5.9 %; NEUTROPHILS # (AUTO) 3.1 10^3/uL (1.5-6.6); NEUTROPHILS % (AUTO) 73.4 %; PLT - PLATELET COUNT 162 10^3/uL (130-450); WHITE BLOOD COUNT 4.3 x10^3/uL (4.8-10.8)
[2023-09-17 10:58] LABS: THYROID STIMULATING HORMONE 0.8 uIU/mL (0.34-5.60)
== END 2023-09-17 10:16 | disposition home or self-care (01) ==
LOC: LAB 10:15
PROVIDERS: ATTEND Physician Assistant
DX: R07.81 Pleurodynia (principal); E04.2 Nontoxic multinodular goiter
CPT/HCPCS: 36415; 84439; 84443; 84480; 85025

== ENCOUNTER 2023-09-23 14:35 | Outpatient (CLI) | payer MEDICARE ==
--- NOTE | 2023-09-23 17:02 | XRAY Report ---
PROCEDURE: Hip w/Pelvis 1V LT INDICATIONS: S/P LEFT HIP REPLACEMENT TECHNIQUE: AP pelvis with lateral view(s) of the left hip(s). COMPARISON: None. FINDINGS: Bones: No fractures or dislocations. No suspicious bony lesions. Well-aligned arthroplasty without hardware complication. Soft tissues: No suspicious soft tissue calcifications or masses. IMPRESSION: Expected postoperative appearance of a left hip arthroplasty. Reviewed by: Miguel Horvath on 09/23/2023 5:00 PM PST Approved by: Miguel Horvath on 09/23/2023 5:00 PM [facility] Station ID: [id number]
== END 2023-09-23 14:36 | disposition home or self-care (01) ==
LOC: DI 14:35
PROVIDERS: ATTEND Orthopaedic Surgery
DX: Z96.642 Presence of left artificial hip joint (principal)

== ENCOUNTER 2023-10-26 08:29 | Outpatient (CLI) | payer MEDICARE ==
--- NOTE | 2023-10-26 12:42 | XRAY Report ---
PROCEDURE: Shoulder 2+V LT INDICATIONS: PAIN IN LEFT SHOULDER TECHNIQUE: 3 views of the shoulder were acquired. COMPARISON: None. FINDINGS: Bones: No fractures or dislocations. Mild glenohumeral and acromioclavicular joint space narrowing and juxta-articular osteophytosis. Coracoclavicular interval is maintained. No suspicious bony lesion s. Visualized ribs appear intact. Soft tissues: No suspicious soft tissue calcifications. The visualized lungs are within normal limi ts. Aortic arch is calcified, indicating atherosclerosis. IMPRESSION: 1.No acute bony abnormality. 2.Mild glenohumeral and acromioclavicular osteoarthritis. Reviewed by: Rosie Griffin MD on 10/26/2023 12:41 PM PST Approved by: Rosie Griffin MD on 10/26/2023 12:41 PM PST Station ID: [id number]
== END 2023-10-26 08:30 | disposition home or self-care (01) ==
LOC: DI 08:29
PROVIDERS: ATTEND Registered Nurse
DX: M19.012 Primary osteoarthritis, left shoulder (principal)

== ENCOUNTER 2023-11-20 14:29 | Outpatient (CLI) | payer MEDICARE ==
--- NOTE | 2023-11-20 17:10 | Ultrasound Report ---
PROCEDURE: Chest INDICATIONS: MASS OF THORACIC STRUCTURE TECHNIQUE: Real-time scanning was performed, and a suitable site was marked by the panelbeater for thoracentesis to be performed by the referring clinician. COMPARISON: None. FINDINGS: There is a 4.0 x 0.8 x 4.8 cm fatty mass in the right flank as palpated by the patient. No increased vascularity. 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 Of note, if there is a clinical history of rapid chanelle wth, the very rare liposarcoma cannot be distinguished from lipoma by ultrasound alone. Reviewed by: Patricia Houston MD on 11/20/2023 5:09 PM PST Approved by: Patricia Houston MD on 11/20/2023 5:09 PM PST Station ID: [id number]
== END 2023-11-20 14:30 | disposition home or self-care (01) ==
LOC: DI 14:29
PROVIDERS: ATTEND Registered Nurse
DX: R22.2 Localized swelling, mass and lump, trunk (principal)

== ENCOUNTER 2023-11-20 14:31 | Outpatient (CLI) | payer MEDICARE ==
[2023-11-20] MEDS ORDERED: iohexoL-300 100 ML VIAL ONE (14:43)
[2023-11-20] MEDS ORDERED: iohexoL-300 100 ML VIAL IVP ONE (15:25)
--- NOTE | 2023-11-20 21:37 | CT Report ---
PROCEDURE: IVP INDICATIONS: HEMATURIA CONTRAST: 140mL Omni 300 TECHNIQUE: A [address] of the abdomen and pelvis was performed. Non-contrast and contrast images were recorded and evaluated at appropriate window settings. Images were recorded and evaluated at appropriate windo w settings. Reformats: coronal and sagittal. For radiation dose reduction, the following was used: au tomated exposure control, adjustment of convex left scoliosis. 3 interval casting with improved align ment at the tibia and fibula fractures. MA and/or kV according to patient size. COMPARISON: CT abdomen and pelvis on January 12, 2020 (report only). FINDINGS: Image quality: Diagnostic. Evaluation of the pelvis is limited secondary to streak artifact from the left hip arthroplasty. Urinary system: Both kidneys are normal in size. Nonobstructive nephrolith in the right upper pole m easuring 3 mm (2/31). Nonobstructive nephrolith in the left upper pole measuring 4 mm (2/33). Nonobst ructing nephrolith in the left lower pole measuring 3 mm (2/43). No hydronephrosis on pre-contrast im ages. No solid masses or complex cysts which require follow up. Simple cyst in the left interpolar r egion. Additional bilateral subcentimeter cortical hypodensities are too small to characterize, stati stically cysts. The opacified renal calyces and ureters appear normal, without filling defect. Bladd er wall thickness is normal, accounting for underdistention. Tiny left lateral diverticulum (. N o calcified bladder stones. No filling defect within the opacified bladder. OTHER Lung bases and heart: Right lower lobe lobectomy. Bilateral lower lobe bronchial ectasis with mild sc attered patchy consolidation. Small hiatal hernia. Liver: No solid mass. Gallbladder and biliary tree: Cholecystectomy. Pneumobilia, as before. CBD is dilated measuring 1.2 c m. Spleen: No splenomegaly. Pancreas: No pancreatic ductal dilation. Adrenals: No adrenal nodule. Bowel and peritoneum: Small and large bowel is normal in caliber, without obstruction. Duodenal diver ticulum. Abdominal Lymph nodes: No central or retroperitoneal adenopathy. Vessels: Moderate to marked atherosclerotic calcification of the abdominal aorta. Patent hepatic, por chip, splenic and bilateral renal veins. Proximal mesenteric vessels are patent. No abdominal aortic a neurysm. Reproductive organs: Unremarkable. Pelvic Lymph nodes: Unremarkable. Bones: No aggressive osseous abnormality. No acute fractures. Severe multilevel degenerative changes with levoconvex curvature of the lumbar spine with Estrada angle of 39 degrees from the superior endplat e of L1 into the inferior endplate of L4. Partially visualized left total hip arthroplasty is intact without complication. Other: None. IMPRESSION: 1.Bilateral nonobstructive nephrolithiasis measuring 3 mm on the right and up to 4 mm on the left. No solid mass in the bilateral kidneys or suspicious filling defect in the collecting system. 2.Cholecystectomy. CBD is dilated measuring 1.2 cm which may be secondary to postcholecystectomy rese rvoir effect. Pneumobilia, as before. 3.Right lower lobe lobectomy. Bilateral lower lobe bronchiectasis with mild scattered patchy consolid ation which may be secondary to atelectasis and/or aspiration. 4.Small hiatal hernia. Reviewed by: Rosie Griffin MD on 11/20/2023 9:36 PM PST Approved by: Rosie Griffin MD on 11/20/2023 9:36 PM PST Station ID: [id number]
== END 2023-11-20 14:32 | disposition home or self-care (01) ==
LOC: DI 14:31
PROVIDERS: ATTEND Registered Nurse
DX: R31.9 Hematuria, unspecified (principal); N20.0 Calculus of kidney; Z90.49 Acquired absence of other specified parts of digestive tract; K83.8 Other specified diseases of biliary tract; Z90.2 Acquired absence of lung [part of]; J47.9 Bronchiectasis, uncomplicated; K44.9 Diaphragmatic hernia without obstruction or gangrene; R22.2 Localized swelling, mass and lump, trunk
CPT/HCPCS: 74178; 76604; Q9967

== ENCOUNTER 2024-01-31 07:00 | Outpatient (CLI) | payer MEDICARE ==
--- NOTE | 2024-01-31 19:18 | XRAY Report ---
PROCEDURE: Lumbar Spine 4V INDICATIONS: CONTUSION LOWER BACK/PELVIS TECHNIQUE: 3 views of the lumbar spine were acquired. COMPARISON: CT L-spine on January 15, 2022. FINDINGS: Bones: 5 [id number] vertebrae are present. Diffuse osseous demineralization and habitus/techniq ue markedly limit sensitivity for a fracture. Within these limitations, no definite fracture. Marked levoconvex curvature of the thoracolumbar spine centered at T12-L1. Severe multilevel degenerative ch anges with osteophytosis, disc height loss and facet arthropathy. Multilevel osseous neural foraminal narrowing. Soft tissues: Overlying bowel gas pattern is normal. No suspicious soft tissue calcifications. Alberto cification of the abdominal aorta. Partially visualized left total hip arthroplasty. Cholecystectomy clips. IMPRESSION: 1.Diffuse osseous demineralization and habitus/technique markedly limit sensitivity for a fracture. W ithin these limitations, no definite fracture. If there are ongoing clinical symptoms, recommend a CT for further evaluation. 2.Marked levoconvex curvature of the thoracolumbar spine with severe multilevel degenerative changes. Reviewed by: Rosie Griffin MD on 01/31/2024 7:17 PM PDT Approved by: Rosie Griffin MD on 01/31/2024 7:17 PM PDT Station ID: [id number]
== END 2024-01-31 23:59 | disposition home or self-care (01) ==
LOC: DI.S 07:00
PROVIDERS: ATTEND Emergency Medicine
DX: M47.815 Spondylosis without myelopathy or radiculopathy, thoracolumbar region (principal); M81.0 Age-related osteoporosis without current pathological fracture; M43.9 Deforming dorsopathy, unspecified; S20.222A Contusion of left back wall of thorax, initial encounter

== ENCOUNTER 2024-02-13 15:08 | Outpatient (CLI) | payer MEDICARE ==
--- NOTE | 2024-02-13 17:41 | XRAY Report ---
PROCEDURE: Ankle 3+V LT INDICATIONS: LEFT ANNKLE PAIN TECHNIQUE: 3 views of the ankle were acquired. COMPARISON: None. FINDINGS: Bones: Bones are osteopenic. No fractures or dislocations. Ankle mortise is normally aligned. No s uspicious bony lesions. Soft tissues: No tibiotalar joint effusion. Achilles tendon appears normal. There are scattered so ft tissue vascular calcifications. IMPRESSION: No acute bony abnormality. If there remains a high clinical concern for fracture, consider cross-sect ional imaging now. If pain persists, consider repeat x-ray in 10-14 days or cross-sectional imaging. Reviewed by: Patricia Houston MD on 02/13/2024 5:40 PM PDT Approved by: Patricia Houston MD on 02/13/2024 5:40 PM PDT Station ID: [id number]
== END 2024-02-13 15:09 | disposition home or self-care (01) ==
LOC: DI 15:08
PROVIDERS: ATTEND Podiatrist
DX: M25.572 Pain in left ankle and joints of left foot (principal)

== ENCOUNTER 2024-05-05 12:08 | Outpatient (CLI) | payer MEDICARE ==
--- NOTE | 2024-05-05 15:20 | XRAY Report ---
PROCEDURE: Hip w/Pelvis 2-3V RT INDICATIONS: CONTUSION OF RIGHT HIP TECHNIQUE: 2 views of the hip were acquired. COMPARISON: None. FINDINGS: Bones: Fracture involving subcapital region of right femoral neck is seen with superior migration of right femoral shaft in relation to femoral head. Prior left total hip arthroplasty is seen. No other fracture or dislocation. No gross hardware loosening or failure. Degenerative disc disease in visual ized lower lumbar spine is. No suspicious bony lesions. Soft tissues: No suspicious soft tissue calcifications or masses. IMPRESSION: Acute displaced fracture involving subcapital region of right femoral neck as above. Reviewed by: Tej Perez MD on 05/05/2024 3:19 PM PDT Approved by: Tej Perez MD on 05/05/2024 3:19 PM PDT Station ID: [id number]
--- NOTE | 2024-05-05 15:25 | XRAY Report ---
PROCEDURE: Ribs w/PA Chest 3+V RT INDICATIONS: FRACTURE OF ONE RIB, RIGHT SIDE TECHNIQUE: 3 views of the ribs were acquired, along with a single view chest. COMPARISON: 01/31/2024. FINDINGS: Surgical changes and devices: None. Bones and chest wall: No acute rib fracture is seen. Healing right posterior lateral fifth through 1 0th rib fractures are again seen. No suspicious bony lesions. Overlying soft tissues appear unremark able. Lungs and pleura: No pleural effusions or pneumothorax. Lungs appear clear. Mediastinum: Mediastinal contours appear normal. Heart size is normal. IMPRESSION: Healing right posterior lateral fifth through 10th rib fractures. No new fracture or dislocation. No acute cardiopulmonary pathology. Reviewed by: Tej Perez MD on 05/05/2024 3:23 PM PDT Approved by: Tej Perez MD on 05/05/2024 3:23 PM PDT Station ID: [id number]
== END 2024-05-05 23:59 | disposition home or self-care (01) ==
LOC: DI.N 12:08
PROVIDERS: ATTEND Physician Assistant
DX: S72.011A Unspecified intracapsular fracture of right femur, initial encounter for closed fracture (principal); S22.41XD Multiple fractures of ribs, right side, subsequent encounter for fracture with routine healing

== ENCOUNTER 2024-05-05 14:17 | Inpatient (IN) | payer MEDICARE ==
[2024-05-05 15:39] LABS: BASOPHILS % (AUTO) 0.2 %; EOSINOPHILS % (AUTO) 0.3 %; HCT - HEMATOCRIT 33.5 % (37.0-47.0); HGB - HEMOGLOBIN 10.6 g/dL (12.0-16.0); LYMPHOCYTES # (AUTO) 0.5 10^3/uL (1.5-3.5); LYMPHOCYTES % (AUTO) 7.5 %; MEAN CORPUSCULAR HEMOGLOBIN 29.4 pg (27.0-31.0); MEAN CORPUSCULAR HGB CONC 31.6 g/dL (32.0-36.0); MEAN CORPUSCULAR VOLUME 92.8 fL (81.0-99.0); MEAN PLATELET VOLUME 9.7 fL (7.9-10.8); MONOCYTES # (AUTO) 0.3 10^3/uL (0.0-1.0); MONOCYTES % (AUTO) 4.8 %; NEUTROPHILS # (AUTO) 5.2 10^3/uL (1.5-6.6); NEUTROPHILS % (AUTO) 86.5 %; PLT - PLATELET COUNT 179 10^3/uL (130-450); RED BLOOD COUNT 3.61 10^6/uL (4.20-5.40); RED CELL DISTRIBUTION WIDTH 16.7 % (12.0-15.0)
[2024-05-05] MEDS: ACETAMINOPHEN 325 MG TABLET PO STA (15:52)
[2024-05-05 15:56] LABS: ALBUMIN 3.9 g/dL (3.2-5.5); ALBUMIN/GLOBULIN RATIO 1.3 (1.0-2.2); BILIRUBIN,TOTAL 1.6 mg/dL (0.2-1.0); CALCIUM 9.6 mg/dL (8.5-10.3); CREATININE 0.7 mg/dL (0.6-1.3); MAGNESIUM 1.8 mg/dL (1.7-2.3); POTASSIUM 3.7 mmol/L (3.5-4.5); TOTAL PROTEIN 6.8 g/dL (6.4-8.9)
--- NOTE | 2024-05-05 16:33 | ED Physician Documentation ---
PD HPI Fall - Stated complaint Stated Complaint: GLF,RT HIP INJ,FEVER - Chief complaint Chief Complaint: Trauma Ch/Bk - History obtained from History obtained from: Patient - History of Present Illness Mechanism of injury: Tripped, Lost balance Fall distance: Standing position Where injury occurred: Home Timing - onset: Last night (about 1:30 am) Injury(ies) location: Chest (right lateral lower ribs.), Right Lower Extremity (Right hip). No: Head, Neck, Abdomen Quality of pain: Pain Associated symptoms: Weakness (generalized), Other (She had not felt ill the past few days.). No: LOC, AMS, Paresthesias, Dyspnea Worsens with: Movement Contributing factors: No: Anticoagulated Similar symptoms before: Diagnosis (has had rib fractures in the past. Prior left hip fracture years ago.) Recently seen: Clinic (She went to the walk-in clinic today because of the hip and chest wall pains. Had chest x-ray that did not show any obvious abnormality. Hip x-ray that had questionable arthritis or not. Referred to the ER for further evaluation. Sent by private vehicle.) Review of Systems Constitutional: reports: Fever (just noted at Walk In to have fever.). denies: Chills Nose: denies: Rhinorrhea / runny nose, Congestion Throat: denies: Sore throat Respiratory: denies: Dyspnea, Cough GI: denies: Abdominal Pain, Nausea, Vomiting, Diarrhea : denies: Dysuria PD PAST MEDICAL HISTORY - Past Medical History Cardiovascular: Valve disorder, Other Respiratory: None Endocrine/Autoimmune: None GI: None [employer]OCI[employer] AID: Endometriosis : None HEENT: None Psych: None Musculoskeletal: Osteoarthritis, Rheumatoid arthritis Derm: None - Past Surgical History Past Surgical History: Yes /ASSOC[employer]ATE [employer]CIAL AID: section, Hysterectomy HEENT: Tonsil/Adenoidectomy - Present Medications Home Medications: Ambulatory Orders Medication Instructions Recorded Confirmed HYDROcodone/ACET 10/325 [[place] 10 1 each PO Q4-6H PRN 11/01/13 05/05/24 mg/325 mg] Morphine Sulfate [Ms Contin] 100 mg PO TID 09/17/17 05/05/24 predniSONE [Prednisone] 5 mg PO DAILY 09/17/17 05/05/24 Escitalopram [Lexapro] 10 mg PO DAILY 06/05/21 05/05/24 Furosemide [Lasix] 20 mg PO DAILY 06/05/21 05/05/24 Upadacitinib [Rinvoq] 15 mg ORAL DAILY 06/05/21 05/05/24 Zolpidem [Ambien] 5 mg PO HS PRN 06/05/21 05/05/24 Omeprazole 20 mg PO DAILY 05/05/24 05/05/24 Potassium Chloride 10 meq PO BID 05/05/24 05/05/24 - Allergies Allergies/Adverse Reactions: Allergies Allergy/AdvReac Type Severity Reaction Status Date / Time tetanus toxoid, adsorbed AdvReac Intermediate Edema Verified 05/05/24 14:45 - Social History Does the pt smoke?: Yes Smoking Status: Smoker current status unk Does the pt drink ETOH?: No Does the pt have substance abuse?: No - Immunizations Immunizations are current?: Yes - POLST Patient has POLST: No POLST Status: Full Code PD ED PE NORMAL - Vitals Vital signs reviewed: Yes - General General: Alert and oriented X 3, Well developed/nourished - Cardiac Cardiac: RRR, Other (1/6 murmur left chest) - Respiratory Respiratory: No respiratory distress, Clear bilaterally, Other (tender lateral chest wall without crepitance nor deformity. ) - Abdomen Abdomen: Soft, Non tender - Derm Derm: Normal color, Warm and dry - Extremities Extremities: Other (right hip with pain on rotational movement and impaction. No gross defomity. ) - Neuro Neuro: Alert and oriented X 3, No motor deficit, No sensory deficit Results - Vitals Vitals: Vital Signs - 24 hr 05/05/24 05/05/24 05/05/24 14:36 17:00 18:38 Temperature 38.1 C H Heart Rate 102 H 86 79 Respiratory 17 17 18 Rate Blood Pressure 121/71 117/60 132/68 H O2 Saturation 94 93 100 Oxygen O2 Source Room air - Labs Labs: Laboratory Tests 05/05/24 05/05/24 05/05/24 13:52 13:52 13:52 WBC 6.0 RBC 3.61 L Hgb 10.6 L Hct 33.5 L MCV 92.8 MCH 29.4 MCHC 31.6 L RDW 16.7 H Plt Count 179 MPV 9.7 Neut # (Auto) 5.2 Lymph # (Auto) 0.5 L Crawford # (Auto) 0.3 Eos # (Auto) 0.0 Baso # (Auto) 0.0 Absolute Nucleated RBC 0.00 Nucleated RBC % 0.0 Sodium 137 Potassium 3.7 Chloride 102 Carbon Dioxide 29 Anion Gap 6.0 BUN 15 Creatinine 0.7 Estimated GFR (MDRD) 83 L Glucose 133 H Lactic Acid 1.8 Calcium 9.6 Magnesium 1.8 Total Bilirubin 1.6 H AST 95 H ALT 78 H Alkaline Phosphatase 133 H Total Protein 6.8 Albumin 3.9 Globulin 2.9 Albumin/Globulin Ratio 1.3 Lipase 12 Urine Color Urine Clarity Urine pH Ur Specific [place]ell Urine Protein Urine Glucose (UA) Urine Ketones Urine Occult Blood Urine Nitrite Urine Bilirubin Urine Urobilinogen Ur Leukocyte Esterase Urine RBC Urine WBC Ur Squamous Epith Cells Urine Bacteria Ur Microscopic Review Urine Culture Comments Nasal Adenovirus (PCR) Nasal B. parapertussis DNA (PCR) Nasal Coronavir 229E PCR Nasal Coronavir HKU1 PCR Nasal Coronavir NL63 PCR Nasal Coronavir OC43 PCR Nasal Enterovir/Rhinovir PCR Nasal Influenza B PCR Nasal Influenza A PCR Nasal Parainfluen 1 PCR Nasal Parainfluen 2 PCR Nasal Parainfluen 3 PCR Nasal Parainfluen 4 PCR Nasal RSV (PCR) Nasal B.pertussis DNA PCR Nasal C.pneumoniae (PCR) Gabe Human Metapneumo PCR Nasal M.pneumoniae (PCR) Nasal SARS-CoV-2 (PCR) 05/05/24 05/05/24 15:50 16:43 WBC RBC Hgb Hct MCV MCH MCHC RDW Plt Count MPV Neut # (Auto) Lymph # (Auto) Crawford # (Auto) Eos # (Auto) Baso # (Auto) Absolute Nucleated RBC Nucleated RBC % Sodium Potassium Chloride Carbon Dioxide Anion Gap BUN Creatinine Estimated GFR (MDRD) Glucose Lactic Acid Calcium Magnesium Total Bilirubin AST ALT Alkaline Phosphatase Total Protein Albumin Globulin Albumin/Globulin Ratio Lipase Urine Color DARK YELLOW Urine Clarity HAZY Urine pH 5.5 Ur Specific [place]ell 1.025 Urine Protein TRACE Urine Glucose (UA) 100 H Urine Ketones 15 H Urine Occult Blood MODERATE H Urine Nitrite POSITIVE H Urine Bilirubin SMALL H Urine Urobilinogen 0.2 (NORMAL) Ur Leukocyte Esterase NEGATIVE Urine RBC 11 Urine WBC 0-3 Ur Squamous Epith Cells FEW Squamous Urine Bacteria Few Ur Microscopic Review INDICATED Urine Culture Comments INDICATED Nasal Adenovirus (PCR) NOT DETECTED Nasal B. parapertussis DNA (PCR) NOT DETECTED Nasal Coronavir 229E PCR NOT DETECTED Nasal Coronavir HKU1 PCR NOT DETECTED Nasal Coronavir NL63 PCR NOT DETECTED Nasal Coronavir OC43 PCR NOT DETECTED Nasal Enterovir/Rhinovir PCR NOT DETECTED Nasal Influenza B PCR NOT DETECTED Nasal Influenza A PCR NOT DETECTED Nasal Parainfluen 1 PCR NOT DETECTED Nasal Parainfluen 2 PCR NOT DETECTED Nasal Parainfluen 3 PCR NOT DETECTED Nasal Parainfluen 4 PCR NOT DETECTED Nasal RSV (PCR) NOT DETECTED Nasal B.pertussis DNA PCR NOT DETECTED Nasal C.pneumoniae (PCR) NOT DETECTED Gabe Human Metapneumo PCR NOT DETECTED Nasal M.pneumoniae (PCR) NOT DETECTED Nasal SARS-CoV-2 (PCR) NOT DETECTED - Rads (name of study) chest CT Relevant Findings:: Prelim report reviewed (mlutiple prior old rib frctures. Atelectasis vs infiltrates right lung. ), EMP independent interpretation of test pelvic CT Relevant Findings:: Prelim report reviewed (impacted right femoral neck fracture. ), EMP independent interpretation of test PD Medical Decision Making - ED course Complexity details: reviewed results, considered differential (The patient had fallen last night and was having pain in the hip with walking and movement. Some pain in the chest. In review of the plain film, it did appear like an impacted femoral neck fracture. Sent to ER from walk-in for further evaluation. CTs and labs ordered in waitingh room. ), d/w patient Reviewed Lab Results: The patient history was of suspicious right hip film at walk-in clinic and referred here for other imaging. CT of the hip and pelvis were done as well as CT of the chest given her history of the fall with pain in those areas. Also evaluating the fever, lab tests as well as a respiratory panel and a urinalysis were ordered as well. The initial testing was done with the patient out of the waiting room due to ER patient flow. The patient did subsequently come back to her room and I evaluated her. The CT scan of the pelvis confirmed an impacted femoral neck fracture. No other obvious abnormality there. CT of the chest showed multiple prior old rib fractures of what the patient was aware. Reading from radiology was possible suspicious new fracture at the second rib. She does not have pain in that area though. There was some atelectatic versus infiltrative findings in the lower lung field on the right. Consideration for pneumonia. Over her urinalysis was positive for UTI. The white count was normal. Lactate was normal at 1.8. Viral respiratory panel did not show any viral illnesses. I presume the cause of her fever relates to a urinary tract infection. Consultation with your orthopedics, Dr. Nicholson was done and he will see the patient. However given the fever and UTI, he would in the patient's other medical problems, he would like the patient to go to medicine service and likely defer surgical repair of the hip for a day or so while the infections are being treated. I talked with the nighttime telehospitalist and gave verbal report. The patient will be admitted. Departure - Departure Disposition: [facility] DC/Xfer Clinical Impression: Fall from slip, trip, or stumble, Femoral neck fracture, Chest wall contusion, UTI (urinary tract infection), Fever, Rheumatoid arthritis Condition: Stable Forms: PCP List
[2024-05-05 16:50] LABS: BILIRUBIN,URINE SMALL (NEGATIVE); GLUCOSE, URINE (UA) 100 mg/dL (NEGATIVE); KETONES,URINE (UA) 15 mg/dL (NEGATIVE); LEUKOCYTE ESTERASE, URINE NEGATIVE (NEGATIVE); NITRITE,URINE POSITIVE (NEGATIVE); OCCULT BLOOD,URINE MODERATE (NEGATIVE); PH,URINE 5.5 PH (5.0-7.5); PROTEIN,URINE TRACE mg/dL (NEGATIVE); UROBILINOGEN,URINE 0.2 (NORMAL) E.U./dL (NORMAL)
[2024-05-05 16:52] LABS: CLARITY,URINE HAZY (CLEAR)
[2024-05-05 16:56] LABS: B. PARAPERTUSSIS- RESP PCR PAN NOT DETECTED; B. PERTUSSIS- RESP PCR PANEL NOT DETECTED; C. PNEUMONIAE- RESP PCR PANEL NOT DETECTED; CORONAVIRUS 229E-RESP PCR NOT DETECTED; CORONAVIRUS HKU1-RESP PCR NOT DETECTED; CORONAVIRUS NL63-RESP PCR NOT DETECTED; CORONAVIRUS OC43-RESP PCR NOT DETECTED; HUMAN METAPNEUMOVIRUS NOT DETECTED; INFLUENZA A- RESP PCR PANEL NOT DETECTED; INFLUENZA B - RESP PCR PANEL NOT DETECTED; M. PNEUMONIAE- RESP PCR PANEL NOT DETECTED; PARAINFLUENZA VIRUS 1 NOT DETECTED; PARAINFLUENZA VIRUS 2 NOT DETECTED; PARAINFLUENZA VIRUS 3 NOT DETECTED; PARAINFLUENZA VIRUS 4 NOT DETECTED; RHINOVIRUS/ENTEROVIRUS NOT DETECTED; RSV- RESP PCR PANEL NOT DETECTED; SARS-CoV-2 -RESP PCR PANEL NOT DETECTED
[2024-05-05 16:58] LABS: BACTERIA,URINE Few /HPF (None Seen); RBC,URINE 11 /HPF (0-5); SQUAMOUS EPITHELIAL CELL,UR FEW Squamous (<= Few); WBC,URINE 0-3 /HPF (0-5)
--- NOTE | 2024-05-05 17:53 | CT Report ---
PROCEDURE: Chest WO INDICATIONS: fall with ribs pain TECHNIQUE: A CT scan of the chest was performed. Intravenous contrast media was not administered. Images were re corded and evaluated at appropriate window settings. Reformats: axial MIP of the chest, coronal and s agittal. For radiation dose reduction, the following was used: automated exposure control, adjustment of mA and/or kV according to patient size. COMPARISON: None. FINDINGS: Image quality: Diagnostic Lungs and pleura:Nodular opacities are seen throughout both lungs, greater on the right. No pleural e ffusions. Mediastinum, heart, and esophagus: Moderate hiatal hernia. Mild nonspecific esophageal wall thickenin g. Atherosclerotic calcifications. Coronary calcifications. No pathologic lymph nodes by size criteri a. Chest wall and thyroid: Possible 2.2 cm thyroid isthmus nodule. Upper abdomen: Pneumobilia is partially seen. There are cholecystectomy clips. Possible choledocholit hiasis at the edge of the [id number], with dilated biliary system Bones: Numerous rib fractures are seen. Possible acute minimally displaced fracture in the right ante rior second rib. Many other subacute to chronic fractures are present bilaterally right clavicle defo rmity is also present, likely nonacute. There are degenerative changes. IMPRESSION: Numerous rib fractures are present bilaterally, most favored to be old. The rib fracture that is possibly acute or subacute is the right anterior second rib. Correlate with location of tende rness. Partially seen suspected choledocholithiasis with dilated biliary system. Pneumobilia is present. Bilateral nodular mixed density pulmonary opacities likely infectious/inflammatory, versus contusions . No pneumothorax. Consider future imaging surveillance to assess for resolution. Possible 2.2 cm thyroid isthmus nodule, consider ultrasound correlation. Moderate hiatal hernia. Reviewed by: Maximo Krishna MD on 05/05/2024 5:52 PM PDT Approved by: Maximo Krishna MD on 05/05/2024 5:52 PM PDT Station ID: [id number]
--- NOTE | 2024-05-05 17:57 | CT Report ---
PROCEDURE: Lower Extremity RT WO INDICATIONS: fall with right hip pain TECHNIQUE: Noncontrast 3-mm axial sections acquired from the distal tibial shaft to the talar dome, with coronal and sagittal reformats. For radiation dose reduction, the following was used: automated exposure c ontrol, adjustment of mA and/or kV according to patient size. COMPARISON: Same-day radiograph FINDINGS: Image quality: Diagnostic Bones: Mildly impacted subcapital hip fracture. Femoral acetabular alignment is maintained. No pubic ring disruption. Sacroiliac joints are maintained. Partially seen lumbosacral degenerative changes. L eft hip arthroplasty is present. Partially seen lumbar scoliosis. Soft tissues: A possible ectatic loop of bowel is seen in the right pelvis, partially evaluated, inde terminate. IMPRESSION: Mildly impacted right hip fracture. Left hip arthroplasty is in place. Incidentally noted mildly ectatic loop of bowel in the right pelvis partially evaluated, probably cec um. Reviewed by: Maximo Krishna MD on 05/05/2024 5:56 PM PDT Approved by: Maximo Krishna MD on 05/05/2024 5:56 PM PDT Station ID: [id number]
[2024-05-05] MEDS: SODIUM CHLORIDE 0.9% 1,000 ML IV STA (18:22)
[2024-05-05] MEDS: cefTRIAXone 1 GM VIAL IVP STA (18:26)
[2024-05-05] MEDS: HYDROmorphone 0.5 MG/0.5 ML SYRINGE IVP STA (18:26)
[2024-05-05] MEDS: KETOROLAC 15 MG/ML VIAL IVP STA (18:27)
--- NOTE | 2024-05-05 19:33 | CONSULTATION NOTE ---
Referring Provider Name of Referring Provider:: Cain Hallman Consult Date: 05/05/24 History of Present Illness - Admitted From Admitted From:: ED - History of Present Illness HPI Comment/Other: Ann Mckeon is a 68-year-old woman who apparently fell while going to the bathroom at about 1:00am in the morning on this day falling onto her right side. She noted immediate pain into her right hip region. Had pain while standing and attempting to walk up. She denies a loss of consciousness or nausea or vomiting. She sought medical attention with her primary care doctor. X-rays taken at that time were equivocal for fracture on their evaluation. Patient was subsequently transferred to the emergency room here at [facility] for further evaluation of her injury. She was also noted at the clinic to have a fever. Other baseline laboratories that were obtained from the clinic indicated that she had a urinary tract infection as well. Patient denies any prior hip fractures. Has a history of having had a contralateral left hip replacement done several years ago. 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 She moved would [facility] 35 years ago. She lives in [place] with her . She has been to her for 40 years. They have 2 children together both boys. The patient does have disability secondary to her rheumatoid arthritis. 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 She is able to ambulate without any assistance device and is still fully independent. The patient smokes half a pack a day she previously smoked more than half a pack a day and has been smoking for over 40 years. The patient does not drink alcohol or use any illicit drugs. - POLST Patient has POLST: No POLST Status: Full Code Meds/Allgy - Home Medications Home Medications: Ambulatory Orders Medication Instructions Recorded Confirmed HYDROcodone/ACET 10/325 [[place] 10 1 each PO Q4-6H PRN 01/06/14 07/10/24 mg/325 mg] Morphine Sulfate [Ms Contin] 100 mg PO TID 09/17/17 05/05/24 predniSONE [Prednisone] 5 mg PO DAILY 09/17/17 05/05/24 Escitalopram [Lexapro] 10 mg PO DAILY 06/05/21 05/05/24 Furosemide [Lasix] 20 mg PO DAILY 06/05/21 05/05/24 Upadacitinib [Rinvoq] 15 mg ORAL DAILY 06/05/21 05/05/24 Zolpidem [Ambien] 5 mg PO HS PRN 06/05/21 05/05/24 Omeprazole 20 mg PO DAILY 05/05/24 05/05/24 Potassium Chloride 10 meq PO BID 05/05/24 05/05/24 - Allergies Allergies/Adverse Reactions: Allergies Allergy/AdvReac Type Severity Reaction Status Date / Time tetanus toxoid, adsorbed AdvReac Intermediate Edema Verified 05/05/24 14:45 Exam - Vital Signs Vital Signs: Vital Signs x48h Temp Pulse Resp BP Pulse Ox 05/05/24 18:38 79 18 132/68 H 100 05/05/24 17:00 86 17 117/60 93 05/05/24 14:36 38.1 C H 102 H 17 121/71 94 - Physical Exam Comments/Other: Examination: Patient has some tenderness in the anterior groin on the right side. Had some pain with hip rotation. Minimal signs of shortening of her limb and no excessive external rotation noted. Patient voluntarily able to move her toes without much difficulty. Sensation intact throughout. Good capillary filling noted. X-rays: Films that were taken reviewed and showed evidence of an impacted right subcapital hip fracture Conclusion and Plan - Lab Results Laboratory Results 05/05/24 16:43: Urine Color DARK YELLOW, Urine Clarity HAZY, Urine pH 5.5, Ur Specific [place] 1.025, Urine Protein TRACE, Urine Glucose (UA) 100 H, Urine Ketones 15 H, Urine Occult Blood MODERATE H, Urine Nitrite POSITIVE H, Urine Bilirubin SMALL H, Urine Urobilinogen 0.2 (NORMAL), Ur Leukocyte Esterase NEGATIVE, Urine RBC 11, Urine WBC 0-3, Ur Squamous Epith Cells FEW Squamous, Urine Bacteria Few, Ur Microscopic Review INDICATED, Urine Culture Comments INDICATED 05/05/24 15:50: Nasal Adenovirus (PCR) NOT DETECTED, Nasal B. parapertussis DNA (PCR) NOT DETECTED, Nasal Coronavir 229E PCR NOT DETECTED, Nasal Coronavir HKU1 PCR NOT DETECTED, Nasal Coronavir NL63 PCR NOT DETECTED, Nasal Coronavir OC43 PCR NOT DETECTED, Nasal Enterovir/Rhinovir PCR NOT DETECTED, Nasal Influenza B PCR NOT DETECTED, Nasal Influenza A PCR NOT DETECTED, Nasal Parainfluen 1 PCR NOT DETECTED, Nasal Parainfluen 2 PCR NOT DETECTED, Nasal Parainfluen 3 PCR NOT DETECTED, Nasal Parainfluen 4 PCR NOT DETECTED, Nasal RSV (PCR) NOT DETECTED, Nasal B.pertussis DNA PCR NOT DETECTED, Nasal C.pneumoniae (PCR) NOT DETECTED, Gabe Human Metapneumo PCR NOT DETECTED, Nasal M.pneumoniae (PCR) NOT DETECTED, Nasal SARS-CoV-2 (PCR) NOT DETECTED 05/05/24 13:52: Lactic Acid 1.8 05/05/24 13:52: Sodium 137, Potassium 3.7, Chloride 102, Carbon Dioxide 29, Anion Gap 6.0, BUN 15, Creatinine 0.7, Estimated GFR (MDRD) 83 L, Glucose 133 H, Calcium 9.6, Magnesium 1.8, Total Bilirubin 1.6 H, AST 95 H, ALT 78 H, Alkaline Phosphatase 133 H, Total Protein 6.8, Albumin 3.9, Globulin 2.9, Albumin/Globulin Ratio 1.3, Lipase 12 05/05/24 13:52: WBC 6.0, RBC 3.61 L, Hgb 10.6 L, Hct 33.5 L, MCV 92.8, MCH 29.4, MCHC 31.6 L, RDW 16.7 H, Plt Count 179, MPV 9.7, Neut # (Auto) 5.2, Lymph # (Auto) 0.5 L, [place] # (Auto) 0.3, Eos # (Auto) 0.0, Baso # (Auto) 0.0, Absolute Nucleated RBC 0.00, Nucleated RBC % 0.0 - Diagnosis Diagnosis: Right subcapital hip fracture - Plan Plan: Plan: Patient will be admitted to the medical service to assist in her medical evaluation. Also they will assist in treating her urinary tract infection preoperatively. Our plan will be to take her to the operating room on Friday morning for multiple cannulated screw fixation for right hip fracture. The risk and benefits of surgery were explained to the patient. Some the risks involve nonunion malunion avascular necrosis of the femoral head blood clots pulmonary embolus infection blood loss etc. All her questions were answered today as well. She appears to understand the risk and benefits and wishes to proceed with surgery as planned. Leg has been marked. Consents been signed.
[2024-05-05] MEDS ORDERED: ACETAMINOPHEN 325 MG TABLET PO PRN (19:47)
[2024-05-05] MEDS ORDERED: SODIUM CHLORIDE FLUSH 0.9% 10 ML SYRINGE IVP PRN (19:47)
[2024-05-05] MEDS: LACTATED RINGERS 1,000 ML IV SCH (20:44)
[2024-05-05] MEDS: POTASSIUM CHLORIDE 10 MEQ CAPSULE PO SCH (20:51)
[2024-05-05] MEDS: oxyCODONE 5 MG TABLET PO PRN (20:51)
--- NOTE | 2024-05-05 21:32 | HISTORY & PHYSICAL EXAMINATION ---
Chief Complaint - Chief Complaint Chief Complaint: R hip pain s/p fall, fevers History of Present Illness - History of Present Illness HPI Comment/Other: pt with s/p fall onto R side at 1 am today when she got up to use the bathroom. states she got up too quickly and her leg was asleep when she beared weight on it, and fell. no head injury to loc. she was able to stand but had pain. went to urgent care where imaging was unclear for fracture and pt had fever of 101 but no other symptoms. ua was positive. given her symptoms and pain, she was transferred to ER for evaluation. pt has h/o L hip surgery. h/o RA on prednisone and rinvoq. no chest pain fevers chills. History - Past Medical History Cardiovascular: reports: Valve disorder, Other Respiratory: reports: None Endocrine/Autoimmune: reports: None GI: reports: None MODEL ARTISTS': reports: Endometriosis : reports: None HEENT: reports: None Psych: reports: None Musculoskeletal: reports: Osteoarthritis, Rheumatoid arthritis Derm: reports: None MRSA Hx?: No - Past Surgical History /MODEL ARTISTS': reports: section, Hysterectomy HEENT: reports: Tonsil/Adenoidectomy - Family & Social History Social History Notes: The patient is originally from [place], [place]. She moved would be [place] 35 years ago. She lives in [place] with her . She has been to her for 40 years. They have 2 children together both boys. The patient does have disability secondary to her rheumatoid arthritis. 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 She is able to ambulate without any assistance device and is still fully independent. The patient smokes half a pack a day she previously smoked more than half a pack a day and has been smoking for over 40 years. The patient does not drink alcohol or use any illicit drugs. - POLST Patient has POLST: No POLST Status: Full Code Meds/Allgy - Home Medications Home Medications: Ambulatory Orders Medication Instructions Recorded Confirmed HYDROcodone/ACET 10/325 [[place] 10 1 each PO Q4-6H PRN 11/01/13 05/05/24 mg/325 mg] Morphine Sulfate [Ms Contin] 100 mg PO TID 09/17/17 05/05/24 predniSONE [Prednisone] 5 mg PO DAILY 09/17/17 05/05/24 Escitalopram [Lexapro] 10 mg PO DAILY 06/05/21 05/05/24 Furosemide [Lasix] 20 mg PO DAILY 06/05/21 05/05/24 Upadacitinib [Rinvoq] 15 mg ORAL DAILY 06/05/21 05/05/24 Zolpidem [Ambien] 5 mg PO HS PRN 06/05/21 05/05/24 Omeprazole 20 mg PO DAILY 05/05/24 05/05/24 Potassium Chloride 10 meq PO BID 05/05/24 05/05/24 - Allergies Allergies/Adverse Reactions: Allergies Allergy/AdvReac Type Severity Reaction Status Date / Time tetanus toxoid, adsorbed AdvReac Intermediate Edema Verified 05/05/24 14:45 Review of Systems - Other Findings Other Findings: 14 pt review done with positives per hpi; all others reviewed as negative Exam - Vital Signs Vital Signs: Vital Signs x48h Temp Pulse Pulse Resp BP BP Pulse Ox 05/05/24 20:50 37.0 C 87 20 158/71 H 97 05/05/24 20:05 84 18 134/68 H 95 05/05/24 19:58 36.2 C L 89 16 132/89 H 93 05/05/24 18:38 79 18 132/68 H 100 05/05/24 17:00 86 17 117/60 93 05/05/24 14:36 38.1 C H 102 H 17 121/71 94 - Physical Exam Comments/Other: gen - aaox3, nad, polite heent - eomi, nc/at heart - per ed charting lungs - no distress, details per ed charting abd - per ed charting msk - bony deformities on hands d/t RA; able to move feet; R hip ROM restricted Conclusion/Plan - Lab Results Fish Bones: 05/05/24 13:52 05/05/24 13:52 - Other Other Results/Comments: pt with - - R hip fracture s/p mechanical fall without head injury, loc, or any other trauma ortho on case, with plan for surgery this monday 05/07 pain control, supportive mgmt - uti pt apparently asymptomatic on rocephin, f/u cultures pt did have fevers - immunocompromised status on prednisone and rinvoq for RA - continue f/u labs, pain control, replete electrolytes further orders per clinical course
[2024-05-06] MEDS: MORPHINE 2 MG/ML CARPUJECT IVP PRN (00:01)
[2024-05-06] MEDS: SODIUM CHLORIDE FLUSH 0.9% 10 ML SYRINGE IVP SCH (00:02)
[2024-05-06] MEDS: rOPINIRole 1 MG TABLET PO ONE (02:43)
[2024-05-06] MEDS: hydrALAZINE INJ 20 MG/ML VIAL IVP STA (05:06)
[2024-05-06] MEDS: ALPRAZolam 0.25 MG TABLET PO STA (05:07)
[2024-05-06] MEDS: PANTOPRAZOLE 40 MG TABLET PO SCH (06:16)
[2024-05-06] MEDS ORDERED: MORPHINE SULFATE 100 MG PO SCH (08:15)
[2024-05-06] MEDS ORDERED: MORPHINE SULFATE PO SCH (08:45)
[2024-05-06] MEDS: predniSONE 5 MG TABLET PO SCH (09:13)
[2024-05-06] MEDS: FUROSEMIDE 20 MG TABLET PO SCH (09:14)
[2024-05-06] MEDS: ESCITALOPRAM 10 MG TABLET PO SCH (09:14)
[2024-05-06] MEDS: cefTRIAXone 1 GM VIAL IVP SCH (09:15)
[2024-05-06] MEDS: HYDROmorphone 0.5 MG/0.5 ML SYRINGE IVP PRN (09:15)
[2024-05-06] MEDS: SCOPOLAMINE PATCH TOP SCH (09:18)
[2024-05-06] MEDS: MORPHINE ER 60 MG TABLET PO ONE (10:03)
[2024-05-06] MEDS: MORPHINE ER 15 MG TABLET PO ONE (10:03)
--- NOTE | 2024-05-06 11:02 | PROVIDER PROGRESS NOTE ---
Assessment/Plan - Problem List (1) Femoral neck fracture Qualifiers: Encounter type: initial encounter Fracture type: closed Laterality: right Qualified Code(s): S72.001A - Fracture of unspecified part of neck of right femur, initial encounter for closed fracture Assessment/Plan: * Repair w/ Dr. Nicholson planned for tomorrow, RCRI of 3.9% * Start home pain meds: morphine 100mg tid, hydrocodone 10/325 q4-6hrs * Will add additional pain control with IV dilaudid + scop patch (2) Choledocholithiasis Assessment/Plan: * +RUQ pain + CT findings + elevated ALP, recommend investigation. * Will order MRCP to be done after ortho repair. If confirmed, discussed transferring out for procedure. (3) UTI (urinary tract infection) Qualifiers: Urinary tract infection type: acute cystitis Hematuria presence: with hematuria Qualified Code(s): N30.01 - Acute cystitis with hematuria Assessment/Plan: * Patient met SIRS criteria upon arrival to ED, started on IV Rocephin. Will continue. * Will obtain blood cultures * Low suspicion for pyelonephritis, patient denies recent history of back/flank pain or chills. (4) Rheumatoid arthritis Qualifiers: Rheumatoid arthritis location: unspecified site Rheumatoid factor presence: unspecified presence Qualified Code(s): M06.9 - Rheumatoid arthritis, unspecified Assessment/Plan: * Will continue home meds Rinvoq and prednisone - Current Meds Current Meds: Current Medications Generic Name Dose Route Start Last Admin Trade Name Freq PRN Reason Stop Dose Admin Ceftriaxone Sodium 1 gm 05/06/24 09:00 05/06/24 09:21 Ceftriaxone 1 Gm Vial IVP 1 gm DAILY STEFANIE Administration Escitalopram Oxalate 10 mg 05/06/24 09:00 05/06/24 09:14 Escitalopram 10 Mg Tablet PO 10 mg DAILY STEFANIE Administration Hydromorphone HCl 1 mg 05/06/24 08:05 05/06/24 09:15 Hydromorphone 0.5 Mg/0.5 Ml Syringe IVP 1 mg Q2H PRN Administration Severe Pain (Level 7-10) Lactated Ringer's 1,000 mls @ 100 mls/hr 05/05/24 20:00 05/06/24 06:16 Lr IV 100 mls/hr .Q10H STEFANIE Administration Oxycodone HCl 5 mg 05/05/24 19:47 05/06/24 06:16 Oxycodone 5 Mg Tablet PO 5 mg Q4HR PRN Administration Pain 5 to 7 Pantoprazole Sodium 40 mg 05/06/24 07:00 05/06/24 06:16 Pantoprazole 40 Mg Tablet PO 40 mg QDAC STEFANIE Administration Potassium Chloride 10 meq 05/05/24 21:00 05/06/24 09:13 Potassium Chloride 10 Meq Capsule PO 10 meq BID STEFANIE Administration Prednisone 5 mg 05/06/24 09:00 05/06/24 09:13 Prednisone 5 Mg Tablet PO 5 mg DAILY STEFANIE Administration Scopolamine HBr 1 patch 05/06/24 09:00 05/06/24 09:18 Scopolamine Patch TOP 1 patch Q3D STEFANIE Administration Sodium Chloride 10 ml 05/06/24 01:00 05/06/24 00:02 Sodium Chloride Flush 0.9% 10 Ml Syringe IVP Not Given 0100,0900,1700 STEFANIE - Lab Result Fish Bone Diagrams: 05/05/24 13:52 05/05/24 13:52 - Diagnostic Imaging Results Diagnostic Imaging Results: Final report reviewed Diagnostic Imaging Results Comments: "Mildy impacted subcapital hip fracture. Femoral acetabular alignment is maintained. No pubic ring disruption. Sacroiliac joints are maintained. Partially seen lumbosacral degenerative changes. Left hip arthroplasty is present. Partially seen lumbar scoliosis" - Additional Planning Condition/Complexity: Stable Consult/Specialty: OT Plan Discussed with:: Patient, Family Subjective - Subjective Patient Reports: Abdominal Pain (RUQ), Pain (7/10 R hip/leg pain) Objective Vital Signs: Vital Signs - 24 hr 05/05/24 05/05/24 05/05/24 14:36 17:00 18:38 Temperature 38.1 C H Heart Rate 102 H 86 79 Heart Rate [ Brachial] Respiratory 17 17 18 Rate Blood Pressure 121/71 117/60 132/68 H Blood Pressure [Left Brachial artery] O2 Saturation 94 93 100 05/05/24 05/05/24 05/05/24 19:58 20:05 20:50 Temperature 36.2 C L 37.0 C Heart Rate 89 84 Heart Rate [ 87 Brachial] Respiratory 16 18 20 Rate Blood Pressure 132/89 H 134/68 H Blood Pressure 158/71 H [Left Brachial artery] O2 Saturation 93 95 97 05/06/24 05/06/24 05/06/24 00:00 03:21 03:36 Temperature 37.1 C 37.5 C Heart Rate Heart Rate [ 82 98 Brachial] Respiratory 20 18 Rate Blood Pressure Blood Pressure 169/83 H 192/98 H 191/94 H [Left Brachial artery] O2 Saturation 94 92 05/06/24 05/06/24 05/06/24 05:06 05:29 06:20 Temperature Heart Rate Heart Rate [ Brachial] Respiratory Rate Blood Pressure 173/103 H Blood Pressure 191/91 H 187/97 H [Left Brachial artery] O2 Saturation 05/06/24 05/06/24 06:21 07:21 Temperature 36.5 C Heart Rate Heart Rate [ 100 Brachial] Respiratory 18 Rate Blood Pressure Blood Pressure 208/93 H 161/81 H [Left Brachial artery] O2 Saturation 94 Oxygen O2 Source Room air I&O (Last 24 Hrs): Intake and Output Totals x24h 05/04/24 05/05/24 05/06/24 23:59 23:59 23:59 Intake Total 4342.306 5072.333 Output Total 1300 Balance 1181.667 -231.667 General: Alert, Oriented x3, Moderate distress HEENT: Atraumatic Extremities: Other (R lower extremity shortened and internally rotated) - Results Results: Laboratory Results WBC 6.0 x10^3/uL (4.8-10.8) 05/05/24 13:52 RBC 3.61 10^6/uL (4.20-5.40) L 05/05/24 13:52 Hgb 10.6 g/dL (12.0-16.0) L 05/05/24 13:52 Hct 33.5 % (37.0-47.0) L 05/05/24 13:52 MCV 92.8 fL (81.0-99.0) 05/05/24 13:52 MCH 29.4 pg (27.0-31.0) 05/05/24 13:52 MCHC 31.6 g/dL (32.0-36.0) L 05/05/24 13:52 RDW 16.7 % (12.0-15.0) H 05/05/24 13:52 Plt Count 179 10^3/uL (130-450) 05/05/24 13:52 MPV 9.7 fL (7.9-10.8) 05/05/24 13:52 Neut # (Auto) 5.2 10^3/uL (1.5-6.6) 05/05/24 13:52 Lymph # (Auto) 0.5 10^3/uL (1.5-3.5) L 05/05/24 13:52 [place] # (Auto) 0.3 10^3/uL (0.0-1.0) 05/05/24 13:52 Eos # (Auto) 0.0 10^3/uL (0.0-0.7) 05/05/24 13:52 Baso # (Auto) 0.0 10^3/uL (0.0-0.1) 05/05/24 13:52 Absolute Nucleated RBC 0.00 x10^3/uL 05/05/24 13:52 Nucleated RBC % 0.0 /100WBC 05/05/24 13:52 Sodium 137 mmol/L (135-145) 05/05/24 13:52 Potassium 3.7 mmol/L (3.5-4.5) 05/05/24 13:52 Chloride 102 mmol/L (101-111) 05/05/24 13:52 Carbon Dioxide 29 mmol/L (21-32) 05/05/24 13:52 Anion Gap 6.0 (6-13) 05/05/24 13:52 BUN 15 mg/dL (6-20) 05/05/24 13:52 Creatinine 0.7 mg/dL (0.6-1.3) 05/05/24 13:52 Estimated GFR (MDRD) 83 (>89) L 05/05/24 13:52 Glucose 133 mg/dL (74-104) H 05/05/24 13:52 Lactic Acid 1.8 mmol/L (0.5-2.2) 05/05/24 13:52 Calcium 9.6 mg/dL (8.5-10.3) 05/05/24 13:52 Magnesium 1.8 mg/dL (1.7-2.3) 05/05/24 13:52 Total Bilirubin 1.6 mg/dL (0.2-1.0) H 05/05/24 13:52 AST 95 IU/L (10-42) H 05/05/24 13:52 ALT 78 IU/L (10-60) H 05/05/24 13:52 Alkaline Phosphatase 133 IU/L (42-121) H 05/05/24 13:52 Total Protein 6.8 g/dL (6.4-8.9) 05/05/24 13:52 Albumin 3.9 g/dL (3.2-5.5) 05/05/24 13:52 Globulin 2.9 g/dL (2.1-4.2) 05/05/24 13:52 Albumin/Globulin Ratio 1.3 (1.0-2.2) 05/05/24 13:52 Lipase 12 U/L (11-82) 05/05/24 13:52 Urine Color DARK YELLOW 05/05/24 16:43 Urine Clarity HAZY (CLEAR) 05/05/24 16:43 Urine pH 5.5 PH (5.0-7.5) 05/05/24 16:43 Ur Specific [place] 1.025 (1.002-1.030) 05/05/24 16:43 Urine Protein TRACE mg/dL (NEGATIVE) 05/05/24 16:43 Urine Glucose (UA) 100 mg/dL (NEGATIVE) H 05/05/24 16:43 Urine Ketones 15 mg/dL (NEGATIVE) H 05/05/24 16:43 Urine Occult Blood MODERATE (NEGATIVE) H 05/05/24 16:43 Urine Nitrite POSITIVE (NEGATIVE) H 05/05/24 16:43 Urine Bilirubin SMALL (NEGATIVE) H 05/05/24 16:43 Urine Urobilinogen 0.2 (NORMAL) E.U./dL (NORMAL) 05/05/24 16:43 Ur Leukocyte Esterase NEGATIVE (NEGATIVE) 05/05/24 16:43 Urine RBC 11 /HPF (0-5) 05/05/24 16:43 Urine WBC 0-3 /HPF (0-5) 05/05/24 16:43 Ur Squamous Epith Cells FEW Squamous (<= Few) 05/05/24 16:43 Urine Bacteria Few /HPF (None Seen) 05/05/24 16:43 Ur Microscopic Review INDICATED 05/05/24 16:43 Urine Culture Comments INDICATED 05/05/24 16:43 Nasal Adenovirus (PCR) NOT DETECTED 05/05/24 15:50 Nasal B. parapertussis DNA (PCR) NOT DETECTED 05/05/24 15:50 Nasal Coronavir 229E PCR NOT DETECTED 05/05/24 15:50 Nasal Coronavir HKU1 PCR NOT DETECTED 05/05/24 15:50 Nasal Coronavir NL63 PCR NOT DETECTED 05/05/24 15:50 Nasal Coronavir OC43 PCR NOT DETECTED 05/05/24 15:50 Nasal Enterovir/Rhinovir PCR NOT DETECTED 05/05/24 15:50 Nasal Influenza B PCR NOT DETECTED 05/05/24 15:50 Nasal Influenza A PCR NOT DETECTED 05/05/24 15:50 Nasal Parainfluen 1 PCR NOT DETECTED 05/05/24 15:50 Nasal Parainfluen 2 PCR NOT DETECTED 05/05/24 15:50 Nasal Parainfluen 3 PCR NOT DETECTED 05/05/24 15:50 Nasal Parainfluen 4 PCR NOT DETECTED 05/05/24 15:50 Nasal RSV (PCR) NOT DETECTED 05/05/24 15:50 Nasal B.pertussis DNA PCR NOT DETECTED 05/05/24 15:50 Nasal C.pneumoniae (PCR) NOT DETECTED 05/05/24 15:50 Gabe Human Metapneumo PCR NOT DETECTED 05/05/24 15:50 Nasal M.pneumoniae (PCR) NOT DETECTED 05/05/24 15:50 Nasal SARS-CoV-2 (PCR) NOT DETECTED 05/05/24 15:50 Sepsis Event Note (H) - Evaluation Current Stage of Sepsis: Sepsis Possible source of Sepsis: positive: Genitourinary - Sepsis Criteria Sepsis Criteria: Suspected or Documented, Recorded Temperature greater than 38.3C or Less than 36C, Recorded Heart Rate greater than 90 bpm
[2024-05-06] MEDS: ACETAMINOPHEN 325 MG TABLET PO SCH (11:40)
[2024-05-06] MEDS: polyethylene glycoL 3350 17 GM PACKET PO SCH (11:42)
[2024-05-06] MEDS: RINVOQ 15 MG PO SCH (12:39)
[2024-05-06] MEDS: rOPINIRole 0.25 MG TABLET PO SCH (12:39)
--- NOTE | 2024-05-06 12:50 | PHARMACY PROGRESS NOTE ---
- Best Possible Medication History Admit Date and Time: 05/05/241946 Processed by: Pharmacy Medications reviewed in ED?: Yes Medication History completed: Yes Patient Interview: Completed Secondary Source(s): Insurance records As the person ultimately responsible for medication therapy, providers are able to order a medication from an existing home medication list in [facility] via the "Reconcile Routine" prior to Confirmation of that medication by computer support specialist. Such practice is discouraged except when the physician, in their clinical judgment, deems that a medical need exists for a medication without regard to previous use.
[2024-05-06] MEDS: CALCIUM CARBONATE CHEW 500 MG TABLET PO SCH (13:08)
[2024-05-06] MEDS: CHOLECALCIFEROL 5,000 UNIT CAPSULE PO SCH (13:08)
[2024-05-06] MEDS ORDERED: MORPHINE ER 15 MG TABLET PO SCH (14:00)
[2024-05-06] MEDS ORDERED: MORPHINE ER 60 MG TABLET PO SCH (14:00)
[2024-05-06] MEDS: MORPHINE ER 15 MG TABLET PO SCH (15:58)
[2024-05-06] MEDS: MORPHINE ER 60 MG TABLET PO SCH (15:59)
[2024-05-07] MEDS ORDERED: PROPOFOL 500 MG/50 ML 500 MG/50 ML VIAL ONE (05:38)
[2024-05-07] MEDS ORDERED: PROPOFOL 200 MG/20 ML VIAL IVP ONE (05:42)
[2024-05-07] MEDS ORDERED: ONDANSETRON 4 MG/2 ML VIAL IVP PRN ×2 (05:46→09:14)
[2024-05-07] MEDS ORDERED: NALOXONE 0.4 MG/ML VIAL IVP PRN ×2 (05:46→09:14)
[2024-05-07] MEDS ORDERED: ePHEDrine 50 MG/ML VIAL IVP PRN ×2 (05:46→09:14)
[2024-05-07] MEDS ORDERED: MORPHINE 2 MG/ML CARPUJECT IVP PRN ×2 (05:46→09:14)
[2024-05-07] MEDS ORDERED: ATROPINE ABBOJECT 1 MG/10 ML SYRINGE IVP PRN ×2 (05:46→09:14)
[2024-05-07] MEDS ORDERED: HYDROmorphone 0.5 MG/0.5 ML SYRINGE IVP PRN ×2 (05:46→09:14)
[2024-05-07] MEDS ORDERED: fentaNYL 100 MCG/2 ML VIAL IVP PRN ×2 (05:46→09:14)
[2024-05-07 05:49] LABS: EOSINOPHILS % (AUTO) 0.9 %; HCT - HEMATOCRIT 28.2 % (37.0-47.0); HGB - HEMOGLOBIN 9.2 g/dL (12.0-16.0); LYMPHOCYTES # (AUTO) 0.3 10^3/uL (1.5-3.5); LYMPHOCYTES % (AUTO) 6.6 %; MEAN CORPUSCULAR HEMOGLOBIN 29.6 pg (27.0-31.0); MEAN CORPUSCULAR HGB CONC 32.6 g/dL (32.0-36.0); MEAN CORPUSCULAR VOLUME 90.7 fL (81.0-99.0); MEAN PLATELET VOLUME 10.2 fL (7.9-10.8); MONOCYTES # (AUTO) 0.2 10^3/uL (0.0-1.0); MONOCYTES % (AUTO) 5.4 %; NEUTROPHILS # (AUTO) 3.6 10^3/uL (1.5-6.6); NEUTROPHILS % (AUTO) 85.5 %; PLT - PLATELET COUNT 157 10^3/uL (130-450); RED BLOOD COUNT 3.11 10^6/uL (4.20-5.40); RED CELL DISTRIBUTION WIDTH 16.3 % (12.0-15.0); WHITE BLOOD COUNT 4.3 x10^3/uL (4.8-10.8)
[2024-05-07] MEDS ORDERED: LACTATED RINGERS 1,000 ML IV SCH ×2 (06:00→09:14)
[2024-05-07 06:06] LABS: ALBUMIN 3.1 g/dL (3.2-5.5); BILIRUBIN,DIRECT 0.29 mg/dL (0.03-0.18); CALCIUM 8.8 mg/dL (8.5-10.3); CREATININE 0.5 mg/dL (0.6-1.3); POTASSIUM 3.4 mmol/L (3.5-4.5); TOTAL PROTEIN 5.6 g/dL (6.4-8.9)
--- NOTE | 2024-05-07 06:19 | ANESTHESIA ---
Pre-Anesthesia VS, & Labs - Diagnosis Diagnosis Right subcapital hip fracture - Procedure Cannulated Screw Fixation Vital Signs: Temp Pulse Resp BP Pulse Ox O2 Flow Rate 37.1 C 90 22 152/83 H 94 05/07/24 05:20 05/07/24 05:20 05/07/24 05:20 05/07/24 05:05/06/24 20:23 Height: 4 ft 11 in Weight (kg): 54 kg Body Mass Index: 24.0 BMI Classification: Normal - Is Patient ?: No - Lab Results Current Lab Results: Laboratory Tests 05/07/24 05:26: Sodium 135, Potassium 3.4 L, Chloride 102, Carbon Dioxide 23, Anion Gap 10.0, BUN 11, Creatinine 0.5 L, Estimated GFR (MDRD) 122, Glucose 78, Calcium 8.8, Total Bilirubin 1.0, Direct Bilirubin 0.29 H, AST 45 H, ALT 58, Alkaline Phosphatase 121, Total Protein 5.6 L, Albumin 3.1 L, Globulin 2.5 05/07/24 05:26: WBC 4.3 L, RBC 3.11 L, Hgb 9.2 L, Hct 28.2 L, MCV 90.7, MCH 29.6, MCHC 32.6, RDW 16.3 H, Plt Count 157, MPV 10.2, Neut # (Auto) 3.6, Lymph # (Auto) 0.3 L, [place] # (Auto) 0.2, Eos # (Auto) 0.0, Baso # (Auto) 0.0, Absolute Nucleated RBC 0.00, Nucleated RBC % 0.0 05/05/24 13:52: Lactic Acid 1.8 05/05/24 13:52: Sodium 137, Potassium 3.7, Chloride 102, Carbon Dioxide 29, Anion Gap 6.0, BUN 15, Creatinine 0.7, Estimated GFR (MDRD) 83 L, Glucose 133 H, Calcium 9.6, Magnesium 1.8, Total Bilirubin 1.6 H, AST 95 H, ALT 78 H, Alkaline Phosphatase 133 H, Total Protein 6.8, Albumin 3.9, Globulin 2.9, Albumin/Globulin Ratio 1.3, Lipase 12 05/05/24 13:52: WBC 6.0, RBC 3.61 L, Hgb 10.6 L, Hct 33.5 L, MCV 92.8, MCH 29.4, MCHC 31.6 L, RDW 16.7 H, Plt Count 179, MPV 9.7, Neut # (Auto) 5.2, Lymph # (Auto) 0.5 L, [place] # (Auto) 0.3, Eos # (Auto) 0.0, Baso # (Auto) 0.0, Absolute Nucleated RBC 0.00, Nucleated RBC % 0.0 Fish Bones: 05/07/24 05:26 05/07/24 05:26 Home Medications and Allergies Home Medications: Ambulatory Orders Omeprazole 20 mg PO DAILY 05/05/24 Potassium Chloride 10 meq PO BID 05/05/24 Restless Leg (Homeopathic) 1 tab PO DAILY 05/06/24 Active Medications Acetaminophen (Acetaminophen 325 Mg Tablet) 1,000 mg PO Q6H [facility] Last Admin: 05/07/24 01:21 Dose: 1,000 mg Hydrocodone Bitart/Acetaminophen (Hydrocod/Acetam 10 Mg/325 Mg Tablet) 1 tab PO Q4H PRN PRN Reason: PAIN Atropine Sulfate (Atropine Abboject 1 Mg/10 Ml Syringe) 0.5 mg IVP Q5M PRN PRN Reason: Bradycardia Stop: 05/08/24 05:46 Calcium Carbonate/Glycine (Calcium Carbonate Chew 500 Mg Tablet) 500 mg PO BID [facility] Last Admin: 05/06/24 21:10 Dose: 500 mg Ceftriaxone Sodium (Ceftriaxone 1 Gm Vial) 1 gm IVP DAILY [facility] Stop: 05/09/24 08:59 Last Admin: 05/06/24 09:21 Dose: 1 gm Cholecalciferol (Cholecalciferol 5,000 Unit Capsule) 5,000 unit PO DAILY [facility] Last Admin: 05/06/24 13:08 Dose: 5,000 unit Ephedrine Sulfate (Ephedrine 50 Mg/Ml Vial) 10 mg IVP Q5M PRN PRN Reason: HYPOTENSION Stop: 05/08/24 05:46 Escitalopram Oxalate (Escitalopram 10 Mg Tablet) 10 mg PO DAILY [facility] Last Admin: 05/06/24 09:14 Dose: 10 mg Fentanyl (Fentanyl 100 Mcg/2 Ml Vial) 25 - 50 mcg IVP Q5M PRN PRN Reason: BREAKTHROUGH PAIN (2nd Choice) Stop: 05/08/24 05:46 Hydromorphone HCl (Hydromorphone 0.5 Mg/0.5 Ml Syringe) 1 mg IVP Q2H PRN PRN Reason: Severe Pain (Level 7-10) Last Admin: 05/06/24 09:15 Dose: 1 mg Hydromorphone HCl (Hydromorphone 0.5 Mg/0.5 Ml Syringe) 0.2 - 0.6 mg IVP Q5M PRN PRN Reason: PAIN (First Choice) Stop: 05/08/24 05:46 Lactated Ringer's (Lr) 1,000 mls @ 100 mls/hr IV .Q10H [facility] Last Admin: 05/07/24 01:19 Dose: 100 mls/hr Lactated Ringer's (Lr) 1,000 mls @ 100 mls/hr IV .Q10H [facility] Stop: 05/07/24 15:59 Ketorolac Tromethamine (Ketorolac 15 Mg/Ml Vial) 15 mg IVP Q6HR PRN PRN Reason: Severe Pain (Level 7-10) Stop: 05/11/24 08:35 Morphine Sulfate (Morphine Er 60 Mg Tablet) 60 mg PO TID [facility] Last Admin: 05/07/24 05:30 Dose: 60 mg Morphine Sulfate (Morphine Er 15 Mg Tablet) 45 mg PO TID [facility] Last Admin: 05/07/24 05:30 Dose: 45 mg Morphine Sulfate (Morphine 2 Mg/Ml Carpuject) 2 - 4 mg IVP Q5M PRN PRN Reason: PAIN (3rd Choice) Stop: 05/08/24 05:46 Naloxone HCl (Naloxone 0.4 Mg/Ml Vial) 0.1 mg IVP Q2M PRN PRN Reason: RESP RATE <8 Stop: 05/08/24 05:46 Ondansetron HCl (Ondansetron 4 Mg/2 Ml Vial) 4 mg IVP ONCE PRN PRN Reason: N/V (First Choice) Stop: 05/08/24 05:46 Oxycodone HCl (Oxycodone 5 Mg Tablet) 5 mg PO Q4HR PRN PRN Reason: Pain 5 to 7 Last Admin: 05/06/24 06:16 Dose: 5 mg Pantoprazole Sodium (Pantoprazole 40 Mg Tablet) 40 mg PO QDAC [facility] Last Admin: 05/06/24 06:16 Dose: 40 mg Patient Own Med ( Rinvoq 15 Mg Tab.Er. 24h) 1 each PO DAILY [facility] Last Admin: 05/06/24 12:39 Dose: Not Given Polyethylene Glycol (Polyethylene Glycol 3350 17 Gm Packet) 17 gm PO DAILY [facility] Last Admin: 05/06/24 11:42 Dose: 17 gm Potassium Chloride (Potassium Chloride 10 Meq Capsule) 10 meq PO BID [facility] Last Admin: 05/06/24 21:10 Dose: 10 meq Prednisone (Prednisone 5 Mg Tablet) 5 mg PO DAILY [facility] Last Admin: 05/06/24 09:13 Dose: 5 mg Ropinirole HCl (Ropinirole 0.25 Mg Tablet) 0.25 mg PO DAILY [facility] Last Admin: 05/06/24 12:39 Dose: 0.25 mg Scopolamine HBr (Scopolamine Patch) 1 patch TOP Q3D [facility] Last Admin: 05/06/24 09:18 Dose: 1 patch Sodium Chloride (Sodium Chloride Flush 0.9% 10 Ml Syringe) 10 ml IVP PRN PRN PRN Reason: NEEDED PER PROVIDER ORDERS Sodium Chloride (Sodium Chloride Flush 0.9% 10 Ml Syringe) 10 ml IVP 010 0,0900,1700 [facility] Last Admin: 05/07/24 00:45 Dose: 10 ml HYDROcodone/ACET 10/325 [[place] 10 mg/325 mg] 1 each PO Q4-6H PRN 11/01/13 Morphine Sulfate [Ms Contin] 100 mg PO TID 09/17/17 predniSONE [Prednisone] 5 mg PO DAILY 09/17/17 Furosemide [Lasix] 20 mg PO DAILY 06/05/21 Upadacitinib [Rinvoq] 15 mg ORAL DAILY 06/05/21 Zolpidem [Ambien] 5 mg PO HS PRN 06/05/21 Omeprazole 20 mg PO DAILY 05/05/24 Potassium Chloride 10 meq PO BID 05/05/24 Restless Leg (Homeopathic) 1 tab PO DAILY 05/06/24 Allergies/Adverse Reactions: Allergies Allergy/AdvReac Type Severity Reaction Status Date / Time tetanus toxoid, adsorbed AdvReac Intermediate Edema Verified 05/05/24 14:45 Anes History & Medical History - Medical History Cardiovascular: reports: Valve disorder, Other Pulmonary: reports: None Gastrointestinal: reports: None Urinary: reports: None Musculoskeletal: reports: Osteoarthritis, Rheumatoid arthritis Endocrine/Autoimmune: reports: None Blood Disorders: reports: None Skin: reports: None Smoking Status: Current every day smoker - Surgical History Eyes Ears Nose Throat (EENT): reports: Tonsil/Adenoidectomy Gynecologic: reports: section, Hysterectomy Orthopedic: reports: Other (Wrist surgery) Exam General: Alert, Oriented x3, Cooperative Dental: Dentures full Upper, Dentures full Lower Mouth Openin Fingerbreadth Mallampati classification: III Thyromental Distance: 4-6 cm Plan Anesthesia Type: General, Spinal Consent for Procedure(s) Verified and Reviewed: Yes Code Status: Attempt Resuscitation ASA classification: 3-Severe systemic disease Is this case an emergency?: No
[2024-05-07] MEDS ORDERED: KETAMINE 200 MG/20 ML VIAL ONE (07:11)
[2024-05-07] MEDS ORDERED: MIDAZOLAM 2 MG/2 ML VIAL ONE (07:12)
[2024-05-07] MEDS ORDERED: BUPIVACAINE 0.5% PF 10 ML VIAL ONE (07:17)
[2024-05-07] MEDS ORDERED: PHENYLEPHRINE HCL 0.5 MG/5 ML AMPULE ONE (08:13)
[2024-05-07] MEDS ORDERED: ePHEDrine 50 MG/ML VIAL IVP ONE (08:13)
[2024-05-07] MEDS ORDERED: PHENYLEPHRINE 10 MG/ML VIAL ONE (08:20)
[2024-05-07] MEDS ORDERED: ACETAMINOPHEN 1,000 MG/100 ML 1,000 MG/100 ML BAG IV ONE (08:42)
[2024-05-07] MEDS ORDERED: ROPIVACAINE 0.5% PF 20 ML VIAL ONE (08:49)
[2024-05-07] MEDS ORDERED: WATER FOR INJECTION,STERILE 10 ML MC ONE (08:50)
[2024-05-07] MEDS ORDERED: DEXAMETHASONE 4 MG/ML VIAL ONE (08:50)
[2024-05-07] MEDS ORDERED: ONDANSETRON 4 MG/2 ML VIAL ONE (08:54)
[2024-05-07] MEDS ORDERED: KETOROLAC 30 MG/ML VIAL ONE (08:54)
[2024-05-07] MEDS: LACTATED RINGERS 1,000 ML IV ONE (09:19)
[2024-05-07] MEDS ORDERED: DOCUSATE SODIUM 100 MG CAPSULE PO PRN (09:26)
--- NOTE | 2024-05-07 09:36 | OPERATIVE REPORT ---
Operative Report - General Admit Date: 05/05/24 Procedure Date: 05/07/24 Planned Procedure: Closed reduction and multiple cannulated screw fixation for right hip fracture Pre-Op Diagnosis: Minimally displaced right subcapital hip fracture Procedure Performed: Closed reduction and multiple cannulated screw fixation for right hip fracture Post Op Diagnosis: Same - Procedure Note Primary Surgeon: Radha Nicholson MD Anesthesia Provider: Lydia Ricardo CRNA Anesthesia Technique: Spinal IV Fluids (mL): 1,000 Estimated Blood Loss (mL): 20 Complications: None - Other Other Information/Narrative: Description of procedure: Patient was taken the operating room on the morning of her surgery where she had the spinal anesthetic administered without any problems. She was then positioned supine on the [place] fracture table. The right lower extremity was then placed in the axial traction with the leg internally rotated about 30 to 40 degrees. The well leg was then flexed at the hip and widely abducted and held in the well-leg brody. C arm fluoroscopy machine was then positioned so we could obtain AP and lateral projections of the hip. Initial films showed a fracture to be satisfactory reduced after our positioning on the fracture table. After skin preparation the lateral aspect of proximal thigh was obtained we then prepped and draped the operative site in the usual fashion. Through a small lateral incision we dissected through the fascia bekah down to the femoral cortex. We then with C arm guidance proceeded to place under power threaded tip guidewire from our cannulated screw set. This was advanced until it was within a few millimeters of the subchondral bone in the AP projection. Lateral view also confirmed good positioning and proper depth of our first guide pin as well. Next we then proceeded to insert 2 more threaded tip guidewires under power using the multiple pin guide so we are able to obtain nearly parallel tracks of our guidepins with the depth of each guidepin to within a few millimeters of the subchondral bone and AP and lateral projections. Satisfied with this we removed the guide pin guide and used our direct measuring guide to determine the screws we would use. We measured out 95 mm (plus washer), 90 mm (with washer), and a 90 mm cannulated screw. All the screws were for short threaded cannulated screws. We then inserted the selected cannulated screws under power until we were able to remove across the fracture plane and obtain good compression of our fracture. Fluoroscopic views showed the screws to be in good position and proper depth to within a few millimeters of the subchondral bone on both AP and lateral projections. Satisfied with this we removed the guidepins irrigated the wound and closed the wound in layers using 1 stitch of 2-0 Vicryl to approximate the fascia bekah layer followed by skin peña approximate the skin edge. We washed the wound and applied a dressing. Patient had a postoperative peripheral nerve block placed. And transferred off the fracture table and taken the recovery room in satisfactory condition. Estimated blood loss: 20 mL Replacement: 1000 cc crystalloid Intraoperative complications: None Plan: Patient will he advanced to walker ambulating partial weightbearing as tolerated.
[2024-05-07] MEDS: dexAMETHasone 4 MG TABLET PO ONE (11:15)
[2024-05-07] MEDS: ACETAMINOPHEN 500 MG TABLET PO SCH (11:15)
[2024-05-07] MEDS: ceFAZolin (2G) 2 GM in SODIUM CHLORIDE 0.9% MINIBAG 100 ML IV SCH (11:15)
[2024-05-07] MEDS: NS W/20 MEQ KCL 1,000 ML IV SCH (11:17)
--- NOTE | 2024-05-07 11:31 | PROVIDER PROGRESS NOTE ---
Assessment/Plan - Problem List (1) Femoral neck fracture Qualifiers: Encounter type: initial encounter Fracture type: closed Laterality: right Qualified Code(s): S72.001A - Fracture of unspecified part of neck of right femur, initial encounter for closed fracture Assessment/Plan: (1) Femoral neck fracture Qualifiers: Encounter type: initial encounter Fracture type: closed Laterality: right Qualified Code(s): S72.001A - Fracture of unspecified part of neck of right femur, initial encounter for closed fracture Assessment/Plan: --Postop day 0. --PT/OT --DVT ppx per Orthopedic surgery. They have opted for Aspirin 81 mg BID. (2) Choledocholithiasis Assessment/Plan: --MRCP to rule out choledocolithiasis. --Liver enzymes downtrending. (3) UTI (urinary tract infection) Qualifiers: Urinary tract infection type: acute cystitis Hematuria presence: with hematuria Qualified Code(s): N30.01 - Acute cystitis with hematuria Assessment/Plan: --Started on IV antibiotics with ceftriaxone. (4) Rheumatoid arthritis Qualifiers: Rheumatoid arthritis location: unspecified site Rheumatoid factor presence: unspecified presence Qualified Code(s): M06.9 - Rheumatoid arthritis, unspecified Assessment/Plan: * Will continue home meds Rinvoq and prednisone - Current Meds Current Meds: Current Medications Generic Name Dose Route Start Last Admin Trade Name Freq PRN Reason Stop Dose Admin Acetaminophen 1,000 mg 05/06/24 09:00 05/07/24 01:21 Acetaminophen 325 Mg Tablet PO 1,000 mg Q6H STEFANIE Administration Acetaminophen 1,000 mg 05/07/24 10:00 05/07/24 11:15 Acetaminophen 500 Mg Tablet PO 1,000 mg Q6H STEFANIE Administration Calcium Carbonate/Glycine 500 mg 05/06/24 13:00 05/07/24 11:15 Calcium Carbonate Chew 500 Mg Tablet PO 500 mg BID STEFANIE Administration Ceftriaxone Sodium 1 gm 05/06/24 09:00 05/06/24 09:21 Ceftriaxone 1 Gm Vial IVP 05/09/24 08:59 1 gm DAILY STEFANIE Administration Cholecalciferol 5,000 unit 05/06/24 13:00 05/07/24 11:16 Cholecalciferol 5,000 Unit Capsule PO 5,000 unit DAILY STEFANIE Administration Escitalopram Oxalate 10 mg 05/06/24 09:00 05/07/24 11:15 Escitalopram 10 Mg Tablet PO 10 mg DAILY ST[facility]ANIE Administration Hydromorphone HCl 1 mg 05/06/24 08:05 05/06/24 09:15 Hydromorphone 0.5 Mg/0.5 Ml Syringe IVP 1 mg Q2H PRN Administration Severe Pain (Level 7-10) Lactated Ringer's 1,000 mls @ 100 mls/hr 05/05/24 20:00 05/07/24 01:19 Lr IV 100 mls/hr .Q10H STEFANIE Administration Cefazolin Sodium 2 gm/ Sodium 100 mls @ 200 mls/hr 05/07/24 10:00 05/07/24 11:15 Chloride IV 05/07/24 18:29 200 mls/hr Q8H STEFANIE Administration Potassium Chloride/Sodium Chloride 1,000 mls @ 75 mls/hr 05/07/24 10:00 05/07/24 11:17 Normal Saline 0.9% W/20 Meq Kcl IV 75 mls/hr .[id number] STEFANIE Administration Morphine Sulfate 60 mg 05/06/24 16:00 05/07/24 05:30 Morphine Er 60 Mg Tablet PO 60 mg TID STEFANIE Administration Morphine Sulfate 45 mg 05/06/24 16:00 05/07/24 05:30 Morphine Er 15 Mg Tablet PO 45 mg TID STEFANIE Administration Oxycodone HCl 5 mg 05/05/24 19:47 05/06/24 06:16 Oxycodone 5 Mg Tablet PO 5 mg Q4HR PRN Administration Pain 5 to 7 Pantoprazole Sodium 40 mg 05/06/24 07:00 05/07/24 06:27 Pantoprazole 40 Mg Tablet PO 40 mg QDAC STEFANIE Administration Patient Own Med ( 1 each 05/06/24 09:00 05/07/24 11:17 Rinvoq 15 Mg Tab.Er. PO Not Given 24h) DAILY ST[facility]ANIE Polyethylene Glycol 17 gm 05/06/24 11:00 05/07/24 11:17 Polyethylene Glycol 3350 17 Gm Packet PO 17 gm DAILY [facility] Administration Potassium Chloride 10 meq 05/05/24 21:00 05/07/24 11:16 Potassium Chloride 10 Meq Capsule PO 10 meq BID STEFANIE Administration Prednisone 5 mg 05/06/24 09:00 05/07/24 11:15 Prednisone 5 Mg Tablet PO 5 mg DAILY ST[facility]IE Administration Ropinirole HCl 0.25 mg 05/06/24 12:00 05/07/24 11:16 Ropinirole 0.25 Mg Tablet PO 0.25 mg DAILY ST[facility]IE Administration Scopolamine HBr 1 patch 05/06/24 09:00 05/06/24 09:18 Scopolamine Patch TOP 1 patch Q3D ST[facility]IE Administration Sodium Chloride 10 ml 05/06/24 01:00 05/07/24 11:17 Sodium Chloride Flush 0.9% 10 Ml Syringe IVP 10 ml 0100,0900,1700 STEFANIE Administration - Lab Result Fish Bone Diagrams: 05/07/24 05:26 05/07/24 05:26 - Additional Planning My Orders: My Active Orders 05/06/24 11:00 polyethylene glycoL 3350 [Miralax] 17 gm PO DAILY 05/06/24 12:00 rOPINIRole [Requip] 0.25 mg PO DAILY 05/06/24 13:00 Calcium Carbonate [Tums] 500 mg PO BID Cholecalciferol [Vitamin D3] 5,000 unit PO DAILY 05/06/24 16:00 Morphine ER 60 mg PO TID Morphine ER [Ms Contin] 45 mg PO TID 05/07/24 05:26 VITAMIN D 25-HYDROXY [REFLAB] Routine 05/07/24 11:25 MRCP WO [MRI] Routine 05/07/24 11:26 RN MRI Screening [RC] .ONCE 05/08/24 05:00 BMP - BASIC METABOLIC PANEL [CHEM] DAILYLAB CBC [CBC - COMP BLD CT W/AUTO DIFF] [HEME] DAILYLAB 05/09/24 05:00 BMP - BASIC METABOLIC PANEL [CHEM] DAILYLAB CBC [CBC - COMP BLD CT W/AUTO DIFF] [HEME] DAILYLAB 05/10/24 05:00 BMP - BASIC METABOLIC PANEL [CHEM] DAILYLAB CBC [CBC - COMP BLD CT W/AUTO DIFF] [HEME] DAILYLAB 05/11/24 05:00 BMP - BASIC METABOLIC PANEL [CHEM] DAILYLAB CBC [CBC - COMP BLD CT W/AUTO DIFF] [HEME] DAILYLAB Subjective - Subjective Patient Reports: Feeling Better, Resting Comfortably, No Complaints, Other (No abdominal pain.) Objective Vital Signs: Vital Signs - 24 hr 05/06/24 05/06/24 05/06/24 14:02 15:34 20:23 Temperature 36.4 C L 37.1 C 37.4 C Heart Rate Heart Rate [ 91 79 90 Brachial] Respiratory 18 20 20 Rate Blood Pressure Blood Pressure 172/81 H 152/72 H 160/80 H [Left Brachial artery] Blood Pressure [Right Brachial artery] O2 Saturation 99 97 94 If not protocol : Oxygen Flow, liters/minute 05/07/24 05/07/24 05/07/24 00:38 05:20 09:21 Temperature 37.5 C 37.1 C 36.1 C L Heart Rate 87 Heart Rate [ 93 90 Brachial] Respiratory 16 22 21 Rate Blood Pressure 102/51 L Blood Pressure 140/73 H [Left Brachial artery] Blood Pressure 152/83 H [Right Brachial artery] O2 Saturation 98 If not protocol : Oxygen Flow, liters/minute 05/07/24 05/07/24 05/07/24 09:26 09:31 09:36 Temperature Heart Rate 85 94 92 Heart Rate [ Brachial] Respiratory 21 20 22 Rate Blood Pressure 98/51 L 98/51 L 97/58 L Blood Pressure [Left Brachial artery] Blood Pressure [Right Brachial artery] O2 Saturation 97 95 94 If not protocol : Oxygen Flow, liters/minute 05/07/24 05/07/24 05/07/24 09:46 10:01 11:01 Temperature 36.2 C L 37.6 C 36.8 C Heart Rate 91 Heart Rate [ 90 Brachial] Respiratory 19 20 20 Rate Blood Pressure 108/51 L Blood Pressure 110/60 102/52 L [Left Brachial artery] Blood Pressure [Right Brachial artery] O2 Saturation 98 91 L 99 If not protocol 2 : Oxygen Flow, liters/minute Oxygen O2 Source Nasal cannula I&O (Last 24 Hrs): Intake and Output Totals x24h 05/05/24 05/06/24 05/07/24 23:59 23:59 23:59 Intake Total 1112.107 0943.333 935 Output Total 2425 400 Balance 1181.667 -156.667 535 General: Alert, Oriented x3, Cooperative, No acute distress Neuro: Alert, CN 2-12 Grossly Intact, Oriented Times 3 Cardiovascular: Regular rate, Normal S1, Normal S2, No murmurs Respiratory: Chest non-tender, No respiratory distress, Breath sounds nml Abdomen: Normal bowel sounds, Soft, No tenderness, No hepatospenomegaly, No masses - Results Results: Laboratory Results WBC 4.3 x10^3/uL (4.8-10.8) L 05/07/24 05:26 RBC 3.11 10^6/uL (4.20-5.40) L 05/07/24 05:26 Hgb 9.2 g/dL (12.0-16.0) L 05/07/24 05:26 Hct 28.2 % (37.0-47.0) L 05/07/24 05:26 MCV 90.7 fL (81.0-99.0) 05/07/24 05:26 MCH 29.6 pg (27.0-31.0) 05/07/24 05: MCHC 32.6 g/dL (32.0-36.0) 05/07/24 05:26 RDW 16.3 % (12.0-15.0) H 05/07/24 05:26 Plt Count 157 10^3/uL (130-450) 05/07/24 05:26 MPV 10.2 fL (7.9-10.8) 05/07/24 05:26 Neut # (Auto) 3.6 10^3/uL (1.5-6.6) 05/07/24 05:26 Lymph # (Auto) 0.3 10^3/uL (1.5-3.5) L 05/07/24 05:26 [place] # (Auto) 0.2 10^3/uL (0.0-1.0) 05/07/24 05:26 Eos # (Auto) 0.0 10^3/uL (0.0-0.7) 05/07/24 05:26 Baso # (Auto) 0.0 10^3/uL (0.0-0.1) 05/07/24 05:26 Absolute Nucleated RBC 0.00 x10^3/uL 05/07/24 05:26 Nucleated RBC % 0.0 /100WBC 05/07/24 05:26 Sodium 135 mmol/L (135-145) 05/07/24 05:26 Potassium 3.4 mmol/L (3.5-4.5) L 05/07/24 05:26 Chloride 102 mmol/L (101-111) 05/07/24 05:26 Carbon Dioxide 23 mmol/L (21-32) 05/07/24 05:26 Anion Gap 10.0 (6-13) 05/07/24 05:26 BUN 11 mg/dL (6-20) 05/07/24 05:26 Creatinine 0.5 mg/dL (0.6-1.3) L 05/07/24 05:26 Estimated GFR (MDRD) 122 (>89) 05/07/24 05:26 Glucose 78 mg/dL (74-104) 05/07/24 05:26 Lactic Acid 1.8 mmol/L (0.5-2.2) 05/05/24 13:52 Calcium 8.8 mg/dL (8.5-10.3) 05/07/24 05:26 Magnesium 1.8 mg/dL (1.7-2.3) 05/05/24 13:52 Total Bilirubin 1.0 mg/dL (0.2-1.0) 05/07/24 05:26 Direct Bilirubin 0.29 mg/dL (0.03-0.18) H 05/07/24 05:26 AST 45 IU/L (10-42) H 05/07/24 05:26 ALT 58 IU/L (10-60) 05/07/24 05:26 Alkaline Phosphatase 121 IU/L (42-121) 05/07/24 05:26 Total Protein 5.6 g/dL (6.4-8.9) L 05/07/24 05:26 Albumin 3.1 g/dL (3.2-5.5) L 05/07/24 05:26 Globulin 2.5 g/dL (2.1-4.2) 05/07/24 05:26 Albumin/Globulin Ratio 1.3 (1.0-2.2) 05/05/24 13:52 Lipase 12 U/L (11-82) 05/05/24 13:52 Urine Color DARK YELLOW 05/05/24 16:43 Urine Clarity HAZY (CLEAR) 05/05/24 16:43 Urine pH 5.5 PH (5.0-7.5) 05/05/24 16:43 Ur Specific [place] 1.025 (1.002-1.030) 05/05/24 16:43 Urine Protein TRACE mg/dL (NEGATIVE) 05/05/24 16:43 Urine Glucose (UA) 100 mg/dL (NEGATIVE) H 05/05/24 16:43 Urine Ketones 15 mg/dL (NEGATIVE) H 05/05/24 16:43 Urine Occult Blood MODERATE (NEGATIVE) H 05/05/24 16:43 Urine Nitrite POSITIVE (NEGATIVE) H 05/05/24 16:43 Urine Bilirubin SMALL (NEGATIVE) H 05/05/24 16:43 Urine Urobilinogen 0.2 (NORMAL) E.U./dL (NORMAL) 05/05/24 16:43 Ur Leukocyte Esterase NEGATIVE (NEGATIVE) 05/05/24 16:43 Urine RBC 11 /HPF (0-5) 05/05/24 16:43 Urine WBC 0-3 /HPF (0-5) 05/05/24 16:43 Ur Squamous Epith Cells FEW Squamous (<= Few) 05/05/24 16:43 Urine Bacteria Few /HPF (None Seen) 05/05/24 16:43 Ur Microscopic Review INDICATED 05/05/24 16:43 Urine Culture Comments INDICATED 05/05/24 16:43 Nasal Adenovirus (PCR) NOT DETECTED 05/05/24 15:50 Nasal B. parapertussis DNA (PCR) NOT DETECTED 05/05/24 15:50 Nasal Coronavir 229E PCR NOT DETECTED 05/05/24 15:50 Nasal Coronavir HKU1 PCR NOT DETECTED 05/05/24 15:50 Nasal Coronavir NL63 PCR NOT DETECTED 05/05/24 15:50 Nasal Coronavir OC43 PCR NOT DETECTED 05/05/24 15:50 Nasal Enterovir/Rhinovir PCR NOT DETECTED 05/05/24 15:50 Nasal Influenza B PCR NOT DETECTED 05/05/24 15:50 Nasal Influenza A PCR NOT DETECTED 05/05/24 15:50 Nasal Parainfluen 1 PCR NOT DETECTED 05/05/24 15:50 Nasal Parainfluen 2 PCR NOT DETECTED 05/05/24 15:50 Nasal Parainfluen 3 PCR NOT DETECTED 05/05/24 15:50 Nasal Parainfluen 4 PCR NOT DETECTED 05/05/24 15:50 Nasal RSV (PCR) NOT DETECTED 05/05/24 15:50 Nasal B.pertussis DNA PCR NOT DETECTED 05/05/24 15:50 Nasal C.pneumoniae (PCR) NOT DETECTED 05/05/24 15:50 Gabe Human Metapneumo PCR NOT DETECTED 05/05/24 15:50 Nasal M.pneumoniae (PCR) NOT DETECTED 05/05/24 15:50 Nasal SARS-CoV-2 (PCR) NOT DETECTED 05/05/24 15:50 Sepsis Event Note (H) - Evaluation Current Stage of Sepsis: Sepsis Possible source of Sepsis: positive: Genitourinary - Sepsis Criteria Sepsis Criteria: Suspected or Documented, Recorded Temperature greater than 38.3C or Less than 36C, Recorded Heart Rate greater than 90 bpm
[2024-05-07] MEDS: HYDROcod/ACETAM 10 MG/325 MG TABLET PO PRN (16:21)
[2024-05-07] MEDS: KETOROLAC 15 MG/ML VIAL IVP PRN (16:22)
[2024-05-07] MEDS: SODIUM CHLORIDE FLUSH 0.9% 10 ML SYRINGE IVP SCH (16:23)
[2024-05-07] MEDS: SODIUM CHLORIDE FLUSH 0.9% 10 ML SYRINGE IVP PRN (18:51)
[2024-05-07] MEDS: ethyl alcohoL 62% SWAB AMPULE NAS SCH (20:37)
[2024-05-07] MEDS: CELECOXIB 100 MG CAPSULE PO SCH (20:38)
[2024-05-07] MEDS: ASPIRIN EC 81 MG TABLET PO SCH (20:38)
--- NOTE | 2024-05-07 21:17 | XRAY Report ---
PROCEDURE: OR C-Arm Procedure INDICATIONS: Right hip pinning FLUORO TIME: 000.4 TECHNIQUE: 3 fluoroscopic images of the right hip. COMPARISON: Right hip and pelvic radiographs 05/05/2024.. FINDINGS: 3 screws spanning the right femoral neck. Prior right hip fracture. IMPRESSION: Intraoperative guidance provided. Reviewed by: Nakul Cobb MD on 05/07/2024 9:15 PM PDT Approved by: Nakul Cobb MD on 05/07/2024 9:15 PM PDT Station ID: [id number]
--- NOTE | 2024-05-07 21:47 | MRI Report ---
PROCEDURE: MRCP WO INDICATIONS: Concern for choledocholithiasis on CT scan. TECHNIQUE: Coronal ultra fast SE through the abdomen, axial 2-D spoiled GE in- and [id number], and breath-hold T2 FSE with fat saturation through the biliary system and pancreas. Oblique coronal and axial thin- slice ultra fast SE, radial thick-slab ultra fast SE centered on the extrahepatic bile ducts. COMPARISON: CT right lower extremity 05/05/2024. CT IVP 11/20/2023 FINDINGS: Image quality: Excellent. Gallbladder: Absent. Biliary tree: CBD measures 1.2 cm, (12/37), previously 1 cm on 11/20/2023. There is a stone in the dis chip CBD measuring 1 cm, (2/). There is intrahepatic ductal dilatation. Pneumobilia was seen on prio r CT. Pancreas: No pancreatic ductal dilation. No peripancreatic fluid collection seen. Lung bases and heart: Small hiatal hernia. Asymmetric elevation of the right hemidiaphragm. Liver: No solid mass. Spleen: No splenomegaly. Adrenals: No adrenal nodule. Kidneys and ureters: No hydronephrosis. Small T2 hyperintense cysts. No renal cystic lesion which req uires follow up. No solid mass. Bowel and peritoneum: No bowel distension. No pathologic free fluid. Lymph nodes: No central or retroperitoneal adenopathy. Vessels: No infrarenal aortic aneurysm. Bones: No aggressive osseous abnormality. Scoliosis. Other: No significant ventral hernia. IMPRESSION: 1. Choledocholithiasis. Stone in the CBD measuring 1 cm. 2. Biliary ductal dilatation which is slightly increased compared to October 2023. 3. No pancreatic ductal dilatation. Results were communicated to [facility] [place] at 05/07/2024 9:42 PM PDT. Reviewed by: Nakul Cobb MD on 05/07/2024 9:45 PM PDT Approved by: Nakul Cobb MD on 05/07/2024 9:45 PM PDT Station ID: [id number]
[2024-05-08 06:17] LABS: HCT - HEMATOCRIT 24.8 % (37.0-47.0); HGB - HEMOGLOBIN 8.1 g/dL (12.0-16.0); LYMPHOCYTES # (AUTO) 0.2 10^3/uL (1.5-3.5); LYMPHOCYTES % (AUTO) 7.8 %; MEAN CORPUSCULAR HEMOGLOBIN 30.2 pg (27.0-31.0); MEAN CORPUSCULAR HGB CONC 32.7 g/dL (32.0-36.0); MEAN CORPUSCULAR VOLUME 92.5 fL (81.0-99.0); MEAN PLATELET VOLUME 10.6 fL (7.9-10.8); MONOCYTES # (AUTO) 0.2 10^3/uL (0.0-1.0); MONOCYTES % (AUTO) 7.8 %; NEUTROPHILS # (AUTO) 2.4 10^3/uL (1.5-6.6); NEUTROPHILS % (AUTO) 82.7 %; PLT - PLATELET COUNT 143 10^3/uL (130-450); RED BLOOD COUNT 2.68 10^6/uL (4.20-5.40); RED CELL DISTRIBUTION WIDTH 16.5 % (12.0-15.0); WHITE BLOOD COUNT 2.9 x10^3/uL (4.8-10.8)
[2024-05-08 06:30] LABS: SLIDE REVIEW? Indicated
[2024-05-08 06:40] LABS: BILIRUBIN,DIRECT 0.16 mg/dL (0.03-0.18); BILIRUBIN,INDIRECT 0.4 mg/dL; BILIRUBIN,TOTAL 0.6 mg/dL (0.2-1.0); CALCIUM 8.8 mg/dL (8.5-10.3); CREATININE 0.6 mg/dL (0.6-1.3); POTASSIUM 4.4 mmol/L (3.5-4.5)
[2024-05-08 07:39] LABS: PLATELET ESTIMATE, MANUAL NORMAL (130-450,000) (NORMAL); PLATELET MORPHOLOGY NORMAL APPEARANCE (NORMAL)
[2024-05-08] MEDS: oxyCODONE 5 MG TABLET PO PRN (09:31)
--- NOTE | 2024-05-08 11:58 | PROVIDER PROGRESS NOTE ---
Assessment/Plan - Problem List (1) Femoral neck fracture Qualifiers: Encounter type: initial encounter Fracture type: closed Laterality: right Qualified Code(s): S72.001A - Fracture of unspecified part of neck of right femur, initial encounter for closed fracture Assessment/Plan: (1) Femoral neck fracture Qualifiers: Encounter type: initial encounter Fracture type: closed Laterality: right Qualified Code(s): S72.001A - Fracture of unspecified part of neck of right femur, initial encounter for closed fracture Assessment/Plan: --Postop day 1. --PT/OT --DVT ppx per Orthopedic surgery. They have opted for Aspirin 81 mg BID. (2) Choledocholithiasis Assessment/Plan: --MRCP showing evidence of choledocolithiasis. Will call GI at OSH for recommendations. --Liver enzymes downtrending. (3) UTI (urinary tract infection) Qualifiers: Urinary tract infection type: acute cystitis Hematuria presence: with hematuria Qualified Code(s): N30.01 - Acute cystitis with hematuria Assessment/Plan: --Started on IV antibiotics with ceftriaxone. (4) Rheumatoid arthritis Qualifiers: Rheumatoid arthritis location: unspecified site Rheumatoid factor presence: unspecified presence Qualified Code(s): M06.9 - Rheumatoid arthritis, unspecified Assessment/Plan: * Will continue home meds Rinvoq and prednisone - Current Meds Current Meds: Current Medications Generic Name Dose Route Start Last Admin Trade Name Freq PRN Reason Stop Dose Admin Acetaminophen 1,000 mg 05/07/24 10:00 05/08/24 09:35 Acetaminophen 500 Mg Tablet PO Not Given Q6H STEFANIE Hydrocodone Bitart/Acetaminophen 1 tab 05/06/24 08:05 05/07/24 16:21 Hydrocod/Acetam 10 Mg/325 Mg Tablet PO 1 tab Q4H PRN Administration PAIN Alcohol 1 amp 05/07/24 21:00 05/08/24 09:13 Ethyl Alcohol 62% Swab Ampule AMINA Not Given BID STEFANIE Aspirin 81 mg 05/07/24 21:00 05/08/24 09:20 Aspirin Ec 81 Mg Tablet PO 81 mg BID STEFANIE Administration Calcium Carbonate/Glycine 500 mg 05/06/24 13:00 05/08/24 09:19 Calcium Carbonate Chew 500 Mg Tablet PO 500 mg BID STEFANIE Administration Ceftriaxone Sodium 1 gm 05/06/24 09:00 05/08/24 10:36 Ceftriaxone 1 Gm Vial IVP 05/09/24 08:59 1 gm DAILY STEFANIE Administration Celecoxib 200 mg 05/07/24 21:00 05/08/24 09:19 Celecoxib 100 Mg Capsule PO 200 mg BID STEFANIE Administration Cholecalciferol 5,000 unit 05/06/24 13:00 05/08/24 09:19 Cholecalciferol 5,000 Unit Capsule PO 5,000 unit DAILY STEFANIE Administration Escitalopram Oxalate 10 mg 05/06/24 09:00 05/08/24 09:19 Escitalopram 10 Mg Tablet PO 10 mg DAILY STEFANIE Administration Hydromorphone HCl 1 mg 05/06/24 08:05 05/07/24 18:51 Hydromorphone 0.5 Mg/0.5 Ml Syringe IVP 1 mg Q2H PRN Administration Severe Pain (Level 7-10) Potassium Chloride/Sodium Chloride 1,000 mls @ 75 mls/hr 05/07/24 10:00 05/08/24 06:12 Normal Saline 0.9% W/20 Meq Kcl IV Infused .[id number] STEFANIE Infusion Ketorolac Tromethamine 15 mg 05/06/24 08:36 05/07/24 16:22 Ketorolac 15 Mg/Ml Vial IVP 05/11/24 08:35 15 mg Q6HR PRN Administration Severe Pain (Level 7-10) Morphine Sulfate 60 mg 05/06/24 16:00 05/08/24 06:04 Morphine Er 60 Mg Tablet PO 60 mg TID STEFANIE Administration Morphine Sulfate 45 mg 05/06/24 16:00 05/08/24 06:03 Morphine Er 15 Mg Tablet PO 45 mg TID STEFANIE Administration Oxycodone HCl 5 mg 05/07/24 09:26 05/08/24 09:31 Oxycodone 5 Mg Tablet PO 5 mg Q6HR PRN Administration Severe Breakthrough pain(8-10) Pantoprazole Sodium 40 mg 05/06/24 07:00 05/08/24 06:04 Pantoprazole 40 Mg Tablet PO 40 mg QDAC STEFANIE Administration Patient Own Med ( 1 each 05/06/24 09:00 05/08/24 09:18 Rinvoq 15 Mg Tab.Er. PO 1 each 24h) DAILY STEFANIE Administration Polyethylene Glycol 17 gm 05/06/24 11:00 05/08/24 09:20 Polyethylene Glycol 3350 17 Gm Packet PO 17 gm DAILY STEFANIE Administration Potassium Chloride 10 meq 05/05/24 21:00 05/08/24 09:20 Potassium Chloride 10 Meq Capsule PO 10 meq BID STEFANIE Administration Prednisone 5 mg 05/06/24 09:00 05/08/24 09:20 Prednisone 5 Mg Tablet PO 5 mg DAILY STEFANIE Administration Ropinirole HCl 0.25 mg 05/06/24 12:00 05/08/24 09:19 Ropinirole 0.25 Mg Tablet PO 0.25 mg DAILY STEFANIE Administration Scopolamine HBr 1 patch 05/06/24 09:00 05/06/24 09:18 Scopolamine Patch TOP 1 patch Q3D STEFANIE Administration Sodium Chloride 10 ml 05/07/24 17:00 05/08/24 09:21 Sodium Chloride Flush 0.9% 10 Ml Syringe IVP Not Given 0100,0900,1700 STEFANIE Sodium Chloride 10 ml 05/07/24 09:26 05/07/24 18:51 Sodium Chloride Flush 0.9% 10 Ml Syringe IVP 10 ml PRN PRN Administration NEEDED PER PROVIDER ORDERS - Lab Result Fish Bone Diagrams: 05/08/24 05:50 05/08/24 05:50 - Additional Planning My Orders: My Active Orders 05/07/24 11:26 RN MRI Screening [RC] .ONCE 05/09/24 05:00 BMP - BASIC METABOLIC PANEL [CHEM] DAILYLAB CBC [CBC - COMP BLD CT W/AUTO DIFF] [HEME] DAILYLAB 05/10/24 05:00 BMP - BASIC METABOLIC PANEL [CHEM] DAILYLAB CBC [CBC - COMP BLD CT W/AUTO DIFF] [HEME] DAILYLAB 05/11/24 05:00 BMP - BASIC METABOLIC PANEL [CHEM] DAILYLAB CBC [CBC - COMP BLD CT W/AUTO DIFF] [HEME] DAILYLAB Subjective - Subjective Patient Reports: Feeling Better, Resting Comfortably Objective Vital Signs: Vital Signs - 24 hr 05/07/24 05/07/24 05/07/24 12:01 13:00 15:23 Temperature 36.8 C 36.7 C 36.5 C Heart Rate [ 81 68 63 Brachial] Heart Rate [ Sitting] Heart Rate [ Supine] Respiratory 16 24 20 Rate Blood Pressure 131/66 H 127/63 123/58 L [Right Brachial artery] Blood Pressure [Sitting] Blood Pressure [Supine] O2 Saturation 95 99 99 If not protocol 2 1 1 : Oxygen Flow, liters/minute 05/07/24 05/07/24 05/07/24 16:20 16:22 19:41 Temperature 36.8 C Heart Rate [ 73 Brachial] Heart Rate [ 87 87 Sitting] Heart Rate [ 63 63 Supine] Respiratory 18 Rate Blood Pressure 127/64 [Right Brachial artery] Blood Pressure 128/94 H 128/94 H [Sitting] Blood Pressure 133/64 H 133/64 H [Supine] O2 Saturation 94 If not protocol : Oxygen Flow, liters/minute 05/08/24 05/08/24 05/08/24 00:09 04:00 08:08 Temperature 36.6 C 36.7 C 36.9 C Heart Rate [ 80 60 74 Brachial] Heart Rate [ Sitting] Heart Rate [ Supine] Respiratory 18 18 18 Rate Blood Pressure 122/70 128/62 144/68 H [Right Brachial artery] Blood Pressure [Sitting] Blood Pressure [Supine] O2 Saturation 98 97 95 If not protocol : Oxygen Flow, liters/minute Oxygen O2 Source Room air I&O (Last 24 Hrs): Intake and Output Totals x24h 05/06/24 05/07/24 05/08/24 23:59 23:59 23:59 Intake Total 2268.333 2855 1240 Output Total 2425 1650 250 Balance -703.392 3996 990 General: Alert, Oriented x3, Cooperative, No acute distress Neuro: Alert, CN 2-12 Grossly Intact, Oriented Times 3 Cardiovascular: Regular rate, Normal S1, Normal S2, No murmurs Respiratory: Chest non-tender, No respiratory distress, Breath sounds nml Abdomen: Normal bowel sounds, Soft, No tenderness, No hepatospenomegaly, No masses - Results Results: Laboratory Results WBC 2.9 x10^3/uL (4.8-10.8) L 05/08/24 05:50 RBC 2.68 10^6/uL (4.20-5.40) L 05/08/24 05:50 Hgb 8.1 g/dL (12.0-16.0) L 05/08/24 05:50 Hct 24.8 % (37.0-47.0) L 05/08/24 05:50 MCV 92.5 fL (81.0-99.0) 05/08/24 05:50 MCH 30.2 pg (27.0-31.0) 05/08/24 05:50 MCHC 32.7 g/dL (32.0-36.0) 05/08/24 05:50 RDW 16.5 % (12.0-15.0) H 05/08/24 05:50 Plt Count 143 10^3/uL (130-450) 05/08/24 05:50 MPV 10.6 fL (7.9-10.8) 05/08/24 05:50 Neut # (Auto) 2.4 10^3/uL (1.5-6.6) 05/08/24 05:50 Lymph # (Auto) 0.2 10^3/uL (1.5-3.5) L 05/08/24 05:50 [place] # (Auto) 0.2 10^3/uL (0.0-1.0) 05/08/24 05:50 Eos # (Auto) 0.0 10^3/uL (0.0-0.7) 05/08/24 05:50 Baso # (Auto) 0.0 10^3/uL (0.0-0.1) 05/08/24 05:50 Absolute Nucleated RBC 0.00 x10^3/uL 05/08/24 05:50 Nucleated RBC % 0.0 /100WBC 05/08/24 05:50 Manual Slide Review Indicated 05/08/24 05:50 Platelet Estimate NORMAL (130-450,000) (NORMAL) 05/08/24 05:50 Platelet Morphology NORMAL APPEARANCE (NORMAL) 05/08/24 05:50 Sodium 138 mmol/L (135-145) 05/08/24 05:50 Potassium 4.4 mmol/L (3.5-4.5) 05/08/24 05:50 Chloride 108 mmol/L (101-111) 05/08/24 05:50 Carbon Dioxide 25 mmol/L (21-32) 05/08/24 05:50 Anion Gap 5.0 (6-13) L 05/08/24 05:50 BUN 18 mg/dL (6-20) 05/08/24 05:50 Creatinine 0.6 mg/dL (0.6-1.3) 05/08/24 05:50 Estimated GFR (MDRD) 99 (>89) 05/08/24 05:50 Glucose 120 mg/dL (74-104) H 05/08/24 05:50 Lactic Acid 1.8 mmol/L (0.5-2.2) 05/05/24 13:52 Calcium 8.8 mg/dL (8.5-10.3) 05/08/24 05:50 Magnesium 1.8 mg/dL (1.7-2.3) 05/05/24 13:52 Total Bilirubin 0.6 mg/dL (0.2-1.0) 05/08/24 05:50 Direct Bilirubin 0.16 mg/dL (0.03-0.18) 05/08/24 05:50 Indirect Bilirubin 0.4 mg/dL 05/08/24 05:50 AST 45 IU/L (10-42) H 05/07/24 05:26 ALT 58 IU/L (10-60) 05/07/24 05:26 Alkaline Phosphatase 121 IU/L (42-121) 05/07/24 05:26 Total Protein 5.6 g/dL (6.4-8.9) L 05/07/24 05:26 Albumin 3.1 g/dL (3.2-5.5) L 05/07/24 05:26 Globulin 2.5 g/dL (2.1-4.2) 05/07/24 05:26 Albumin/Globulin Ratio 1.3 (1.0-2.2) 05/05/24 13:52 Lipase 12 U/L (11-82) 05/05/24 13:52 Vitamin D 25-Hydroxy 24.3 ng/mL (30.0-100.0) L 05/07/24 05:26 Urine Color DARK YELLOW 05/05/24 16:43 Urine Clarity HAZY (CLEAR) 05/05/24 16:43 Urine pH 5.5 PH (5.0-7.5) 05/05/24 16:43 Ur Specific [place] 1.025 (1.002-1.030) 05/05/24 16:43 Urine Protein TRACE mg/dL (NEGATIVE) 05/05/24 16:43 Urine Glucose (UA) 100 mg/dL (NEGATIVE) H 05/05/24 16:43 Urine Ketones 15 mg/dL (NEGATIVE) H 05/05/24 16:43 Urine Occult Blood MODERATE (NEGATIVE) H 05/05/24 16:43 Urine Nitrite POSITIVE (NEGATIVE) H 05/05/24 16:43 Urine Bilirubin SMALL (NEGATIVE) H 05/05/24 16:43 Urine Urobilinogen 0.2 (NORMAL) E.U./dL (NORMAL) 05/05/24 16:43 Ur Leukocyte Esterase NEGATIVE (NEGATIVE) 05/05/24 16:43 Urine RBC 11 /HPF (0-5) 05/05/24 16:43 Urine WBC 0-3 /HPF (0-5) 05/05/24 16:43 Ur Squamous Epith Cells FEW Squamous (<= Few) 05/05/24 16:43 Urine Bacteria Few /HPF (None Seen) 05/05/24 16:43 Ur Microscopic Review INDICATED 05/05/24 16:43 Urine Culture Comments INDICATED 05/05/24 16:43 Nasal Adenovirus (PCR) NOT DETECTED 05/05/24 15:50 Nasal B. parapertussis DNA (PCR) NOT DETECTED 05/05/24 15:50 Nasal Coronavir 229E PCR NOT DETECTED 05/05/24 15:50 Nasal Coronavir HKU1 PCR NOT DETECTED 05/05/24 15:50 Nasal Coronavir NL63 PCR NOT DETECTED 05/05/24 15:50 Nasal Coronavir OC43 PCR NOT DETECTED 05/05/24 15:50 Nasal Enterovir/Rhinovir PCR NOT DETECTED 05/05/24 15:50 Nasal Influenza B PCR NOT DETECTED 05/05/24 15:50 Nasal Influenza A PCR NOT DETECTED 05/05/24 15:50 Nasal Parainfluen 1 PCR NOT DETECTED 05/05/24 15:50 Nasal Parainfluen 2 PCR NOT DETECTED 05/05/24 15:50 Nasal Parainfluen 3 PCR NOT DETECTED 05/05/24 15:50 Nasal Parainfluen 4 PCR NOT DETECTED 05/05/24 15:50 Nasal RSV (PCR) NOT DETECTED 05/05/24 15:50 Nasal B.pertussis DNA PCR NOT DETECTED 05/05/24 15:50 Nasal C.pneumoniae (PCR) NOT DETECTED 05/05/24 15:50 Amina Human Metapneumo PCR NOT DETECTED 05/05/24 15:50 Nasal M.pneumoniae (PCR) NOT DETECTED 05/05/24 15:50 Nasal SARS-CoV-2 (PCR) NOT DETECTED 05/05/24 15:50 Sepsis Event Note (H) - Evaluation Current Stage of Sepsis: Sepsis Possible source of Sepsis: positive: Genitourinary - Sepsis Criteria Sepsis Criteria: Suspected or Documented, Recorded Temperature greater than 38.3C or Less than 36C, Recorded Heart Rate greater than 90 bpm
--- NOTE | 2024-05-08 12:07 | PROVIDER PROGRESS NOTE ---
Subjective - Prog Note Date Prog Note Date: 05/08/24 Prog Note Time: 12:05 - Subjective Pt reports feeling: Improved Objective - Vital Signs/Intake & Output Vital Signs: Vital Signs x48h Temp Pulse Resp BP Pulse Ox 05/08/24 08:08 36.9 C 74 18 144/68 H 95 Intake & Output: Intake & Output 05/05/24 05/06/24 05/07/24 05/08/24 23:59 23:59 23:59 23:59 Intake Total 9693.617 0776.333 2855 1240 Output Total 2425 1650 250 Balance 1181.667 -951.655 1518 990 - Lab Results Fish Bones: 05/08/24 05:50 05/08/24 05:50 Other Labs: Lab Results x24hrs 05/08/24 05/08/24 05/07/24 Range/Units 05:50 05:50 05:26 WBC 2.9 L (4.8-10.8) x10^3/uL RBC 2.68 L (4.20-5.40) 10^6/uL Hgb 8.1 L (12.0-16.0) g/dL Hct 24.8 L (37.0-47.0) % MCV 92.5 (81.0-99.0) fL MCH 30.2 (27.0-31.0) pg MCHC 32.7 (32.0-36.0) g/dL RDW 16.5 H (12.0-15.0) % Plt Count 143 (130-450) 10^3/uL MPV 10.6 (7.9-10.8) fL Neut # (Auto) 2.4 (1.5-6.6) 10^3/uL Lymph # (Auto) 0.2 L (1.5-3.5) 10^3/uL [place] # (Auto) 0.2 (0.0-1.0) 10^3/uL Eos # (Auto) 0.0 (0.0-0.7) 10^3/uL Baso # (Auto) 0.0 (0.0-0.1) 10^3/uL Absolute Nucleated RBC 0.00 x10^3/uL Nucleated RBC % 0.0 /100WBC Manual Slide Review Indicated Platelet Estimate NORMAL (130-450,000) (NORMAL) Platelet Morphology NORMAL APPEARANCE (NORMAL) Sodium 138 (135-145) mmol/L Potassium 4.4 (3.5-4.5) mmol/L Chloride 108 (101-111) mmol/L Carbon Dioxide 25 (21-32) mmol/L Anion Gap 5.0 L (6-13) BUN 18 (6-20) mg/dL Creatinine 0.6 (0.6-1.3) mg/dL Estimated GFR (MDRD) 99 (>89) Glucose 120 H (74-104) mg/dL Calcium 8.8 (8.5-10.3) mg/dL Total Bilirubin 0.6 (0.2-1.0) mg/dL Direct Bilirubin 0.16 (0.03-0.18) mg/dL Indirect Bilirubin 0.4 mg/dL Vitamin D 25-Hydroxy 24.3 L (30.0-100.0) ng/mL - Other Results/Comments Other Results/Comments: Examination: Patient's surgical dressings are intact. Has some mild pain with hip rotation today. Moves her toes on command. Sensation intact throughout. Patient reports being able to stand and weight-bear as tolerated ambulating to the walker with assistance. Laboratory: Hemoglobin 8.1, hematocrit 27 Sepsis Event Note (H) - Evaluation Current Stage of Sepsis: Sepsis Possible source of Sepsis: positive: Genitourinary - Sepsis Criteria Sepsis Criteria: Suspected or Documented, Recorded Temperature greater than 38.3C or Less than 36C, Recorded Heart Rate greater than 90 bpm Assessment/Plan - Problem List (1) Femoral neck fracture Impression: Patient is doing satisfactory postoperatively. She apparently is getting up with assistance and is not lightheaded or faint. She is borderline with regards to her postoperative hemoglobin and hematocrit. As long she essentially stays asymptomatic and her blood counts are stable would delay any transfusion. I might consider starting her on iron. Continue with physical therapy and mobilization as tolerated. Qualifiers: Encounter type: initial encounter Fracture type: closed Laterality: right Qualified Code(s): S72.001A - Fracture of unspecified part of neck of right femur, initial encounter for closed fracture
[2024-05-09 05:35] LABS: EOSINOPHILS % (AUTO) 0.8 %; HCT - HEMATOCRIT 25.7 % (37.0-47.0); HGB - HEMOGLOBIN 8.1 g/dL (12.0-16.0); LYMPHOCYTES # (AUTO) 0.8 10^3/uL (1.5-3.5); LYMPHOCYTES % (AUTO) 22.2 %; MEAN CORPUSCULAR HEMOGLOBIN 29.9 pg (27.0-31.0); MEAN CORPUSCULAR HGB CONC 31.5 g/dL (32.0-36.0); MEAN CORPUSCULAR VOLUME 94.8 fL (81.0-99.0); MEAN PLATELET VOLUME 10.3 fL (7.9-10.8); MONOCYTES # (AUTO) 0.3 10^3/uL (0.0-1.0); MONOCYTES % (AUTO) 8.7 %; NEUTROPHILS # (AUTO) 2.4 10^3/uL (1.5-6.6); NEUTROPHILS % (AUTO) 64.6 %; NRBC ABSOLUTE COUNT (AUTO) 0.03 x10^3/uL; NUCLEATED RED BLOOD CELLS AUTO 0.8 /100WBC; PLT - PLATELET COUNT 173 10^3/uL (130-450); RED BLOOD COUNT 2.71 10^6/uL (4.20-5.40); RED CELL DISTRIBUTION WIDTH 17.1 % (12.0-15.0); WHITE BLOOD COUNT 3.8 x10^3/uL (4.8-10.8)
[2024-05-09 05:56] LABS: CREATININE 0.7 mg/dL (0.6-1.3); POTASSIUM 4.4 mmol/L (3.5-4.5)
--- NOTE | 2024-05-09 08:56 | PROVIDER PROGRESS NOTE ---
Subjective - Prog Note Date Prog Note Date: 05/09/24 Prog Note Time: 08:54 - Subjective Pt reports feeling: Improved Objective - Vital Signs/Intake & Output Vital Signs: Vital Signs x48h Temp Pulse Resp BP Pulse Ox 05/09/24 08:17 37.1 C 59 L 20 141/64 H 92 05/09/24 04:58 36.8 C 51 L 18 134/58 H 94 Intake & Output: Intake & Output 05/06/24 05/07/24 05/08/24 05/09/24 23:59 23:59 23:59 23:59 Intake Total 2268.333 2855 2070 100 Output Total 2425 1650 700 Balance -677.340 8948 1370 100 - Lab Results Fish Bones: 05/09/24 04:35 05/09/24 04:35 Other Labs: Lab Results x24hrs 05/09/24 05/09/24 Range/Units 04:35 04:35 WBC 3.8 L (4.8-10.8) x10^3/uL RBC 2.71 L (4.20-5.40) 10^6/uL Hgb 8.1 L (12.0-16.0) g/dL Hct 25.7 L (37.0-47.0) % MCV 94.8 (81.0-99.0) fL MCH 29.9 (27.0-31.0) pg MCHC 31.5 L (32.0-36.0) g/dL RDW 17.1 H (12.0-15.0) % Plt Count 173 (130-450) 10^3/uL MPV 10.3 (7.9-10.8) fL Neut # (Auto) 2.4 (1.5-6.6) 10^3/uL Lymph # (Auto) 0.8 L (1.5-3.5) 10^3/uL [place] # (Auto) 0.3 (0.0-1.0) 10^3/uL Eos # (Auto) 0.0 (0.0-0.7) 10^3/uL Baso # (Auto) 0.0 (0.0-0.1) 10^3/uL Absolute Nucleated RBC 0.03 x10^3/uL Nucleated RBC % 0.8 /100WBC Sodium 141 (135-145) mmol/L Potassium 4.4 (3.5-4.5) mmol/L Chloride 109 (101-111) mmol/L Carbon Dioxide 28 (21-32) mmol/L Anion Gap 4.0 L (6-13) BUN 23 H (6-20) mg/dL Creatinine 0.7 (0.6-1.3) mg/dL Estimated GFR (MDRD) 83 L (>89) Glucose 87 (74-104) mg/dL Calcium 9.0 (8.5-10.3) mg/dL - Other Results/Comments Other Results/Comments: Examination: Hip dressings were changed on the floor. Only scant amount of bloody drainage was appreciated. Minimal pain with hip rotation noted. Patient neurovascular to be intact distally. Laboratory: Hemoglobin 8.1; hematocrit 27 Sepsis Event Note (H) - Evaluation Current Stage of Sepsis: Sepsis Possible source of Sepsis: positive: Genitourinary - Sepsis Criteria Sepsis Criteria: Suspected or Documented, Recorded Temperature greater than 38.3C or Less than 36C, Recorded Heart Rate greater than 90 bpm Assessment/Plan - Problem List (1) Femoral neck fracture Impression: Satisfactory postop course. Plan: Will continue observe the patient's blood counts up. The patient is progressing well on the floor. Will see what the physical therapist analysis is like tomorrow. She will likely be discharged home if she is doing well in therapy. Will have her follow-up in the orthopedic clinic in about 2 weeks for wound check and staple removal. Possible x-rays at that time as well. She will continue to be ambulating with a walker weightbearing as tolerated on her operated side. Qualifiers: Encounter type: initial encounter Fracture type: closed Laterality: right Qualified Code(s): S72.001A - Fracture of unspecified part of neck of right femur, initial encounter for closed fracture
--- NOTE | 2024-05-09 11:46 | PROVIDER PROGRESS NOTE ---
Assessment/Plan - Problem List (1) Femoral neck fracture Qualifiers: Encounter type: initial encounter Fracture type: closed Laterality: right Qualified Code(s): S72.001A - Fracture of unspecified part of neck of right femur, initial encounter for closed fracture Assessment/Plan: (1) Femoral neck fracture Qualifiers: Encounter type: initial encounter Fracture type: closed Laterality: right Qualified Code(s): S72.001A - Fracture of unspecified part of neck of right femur, initial encounter for closed fracture Assessment/Plan: --Postop day 2. --PT/OT --DVT ppx per Orthopedic surgery. They have opted for Aspirin 81 mg BID. --Case discussed with orthopedic surgery. (2) Choledocholithiasis Assessment/Plan: --MRCP showing evidence of choledocolithiasis. Discussed case with Marlen JAMES. Recommended semi-urgent scope on an outpatient basis. She will need a referral from her PCP. I have discussed this with the patient and her family. --Liver enzymes downtrending. No symptoms. (3) UTI (urinary tract infection) Qualifiers: Urinary tract infection type: acute cystitis Hematuria presence: with he maturia Qualified Code(s): N30.01 - Acute cystitis with hematuria Assessment/Plan: --Started on IV antibiotics with ceftriaxone. (4) Rheumatoid arthritis Qualifiers: Rheumatoid arthritis location: unspecified site Rheumatoid factor presence: unspecified presence Qualified Code(s): M06.9 - Rheumatoid arthritis, unspecified Assessment/Plan: * Will continue home meds Rinvoq and prednisone Dispo: PT/OT tomorrow. Anticipate discharge then. Has required greater than 96 hours due to ongoing hospital care. - Current Meds Current Meds: Current Medications Generic Name Dose Route Start Last Admin Trade Name Freq PRN Reason Stop Dose Admin Acetaminophen 1,000 mg 05/07/24 10:00 05/09/24 09:52 Acetaminophen 500 Mg Tablet PO 1,000 mg Q6H STEFANIE Administration Hydrocodone Bitart/Acetaminophen 1 tab 05/06/24 08:05 05/07/24 16:21 Hydrocod/Acetam 10 Mg/325 Mg Tablet PO 1 tab Q4H PRN Administration PAIN Alcohol 1 amp 05/07/24 21:00 05/09/24 09:52 Ethyl Alcohol 62% Swab Ampule AMINA 1 amp BID STEFANIE Administration Aspirin 81 mg 05/07/24 21:00 05/09/24 09:51 Aspirin Ec 81 Mg Tablet PO 81 mg BID STEFANIE Administration Calcium Carbonate/Glycine 500 mg 05/06/24 13:00 05/09/24 09:50 Calcium Carbonate Chew 500 Mg Tablet PO 500 mg BID STEFANIE Administration Celecoxib 200 mg 05/07/24 21:00 05/09/24 09:51 Celecoxib 100 Mg Capsule PO 200 mg BID STEFANIE Administration Cholecalciferol 5,000 unit 05/06/24 13:00 05/09/24 09:51 Cholecalciferol 5,000 Unit Capsule PO 5,000 unit DAILY STEFANIE Administration Escitalopram Oxalate 10 mg 05/06/24 09:00 05/09/24 09:52 Escitalopram 10 Mg Tablet PO 10 mg DAILY STEFANIE Administration Hydromorphone HCl 1 mg 05/06/24 08:05 05/07/24 18:51 Hydromorphone 0.5 Mg/0.5 Ml Syringe IVP 1 mg Q2H PRN Administration Severe Pain (Level 7-10) Ketorolac Tromethamine 15 mg 05/06/24 08:36 05/07/24 16:22 Ketorolac 15 Mg/Ml Vial IVP 05/11/24 08:35 15 mg Q6HR PRN Administration Severe Pain (Level 7-10) Morphine Sulfate 60 mg 05/06/24 16:00 05/09/24 06:34 Morphine Er 60 Mg Tablet PO 60 mg TID STEFANIE Administration Morphine Sulfate 45 mg 05/06/24 16:00 05/09/24 06:32 Morphine Er 15 Mg Tablet PO 45 mg TID STEFANIE Administration Oxycodone HCl 5 mg 05/07/24 09:26 05/08/24 09:31 Oxycodone 5 Mg Tablet PO 5 mg Q6HR PRN Administration Severe Breakthrough pain(8-10) Pantoprazole Sodium 40 mg 05/06/24 07:00 05/09/24 06:34 Pantoprazole 40 Mg Tablet PO 40 mg QDAC STEFANIE Administration Patient Own Med ( 1 each 05/06/24 09:00 05/09/24 09:49 Rinvoq 15 Mg Tab.Er. PO 1 each 24h) DAILY STEFANIE Administration Polyethylene Glycol 17 gm 05/06/24 11:00 05/09/24 09:50 Polyethylene Glycol 3350 17 Gm Packet PO 17 gm DAILY STEFANIE Administration Potassium Chloride 10 meq 05/05/24 21:00 05/09/24 09:51 Potassium Chloride 10 Meq Capsule PO 10 meq BID STEFANIE Administration Prednisone 5 mg 05/06/24 09:00 05/09/24 09:51 Prednisone 5 Mg Tablet PO 5 mg DAILY STEFANIE Administration Ropinirole HCl 0.25 mg 05/06/24 12:00 05/09/24 09:52 Ropinirole 0.25 Mg Tablet PO 0.25 mg DAILY STEFANIE Administration Scopolamine HBr 1 patch 05/06/24 09:00 05/09/24 09:49 Scopolamine Patch TOP 1 patch Q3D STEFANIE Administration Sodium Chloride 10 ml 05/07/24 17:00 05/09/24 09:53 Sodium Chloride Flush 0.9% 10 Ml Syringe IVP 10 ml 0100,0900,1700 STEFANIE Administration Sodium Chloride 10 ml 05/07/24 09:26 05/07/24 18:51 Sodium Chloride Flush 0.9% 10 Ml Syringe IVP 10 ml PRN PRN Administration NEEDED PER PROVIDER ORDERS - Lab Result Fish Bone Diagrams: 05/09/24 04:35 05/09/24 04:35 - Additional Planning My Orders: My Active Orders 05/10/24 05:00 BMP - BASIC METABOLIC PANEL [CHEM] DAILYLAB CBC [CBC - COMP BLD CT W/AUTO DIFF] [HEME] DAILYLAB 05/11/24 05:00 BMP - BASIC METABOLIC PANEL [CHEM] DAILYLAB CBC [CBC - COMP BLD CT W/AUTO DIFF] [HEME] DAILYLAB Subjective - Subjective Patient Reports: Feeling Better, Resting Comfortably, No Complaints, Other (Hemoglobin stable today.) Objective Vital Signs: Vital Signs - 24 hr 05/08/24 05/08/24 05/08/24 12:30 16:00 20:00 Temperature 37 C 36.8 C 37.2 C Heart Rate [ 72 65 64 Brachial] Respiratory 20 20 20 Rate Blood Pressure 125/59 L 130/68 120/58 L [Right Brachial artery] O2 Saturation 93 95 92 05/09/24 05/09/24 05/09/24 00:00 04:58 08:17 Temperature 36.7 C 36.8 C 37.1 C Heart Rate [ 58 L 51 L 59 L Brachial] Respiratory 20 18 20 Rate Blood Pressure 122/58 L 134/58 H 141/64 H [Right Brachial artery] O2 Saturation 94 94 92 Oxygen O2 Source Room air I&O (Last 24 Hrs): Intake and Output Totals x24h 05/07/24 05/08/24 05/09/24 23:59 23:59 23:59 Intake Total 2855 2070 100 Output Total 1650 700 Balance 1205 1370 100 General: Alert, Oriented x3, Cooperative, No acute distress Neuro: Alert, CN 2-12 Grossly Intact, Oriented Times 3 Cardiovascular: Regular rate, Normal S1, Normal S2, No murmurs Respiratory: Chest non-tender, No respiratory distress, Breath sounds nml Abdomen: Normal bowel sounds, Soft, No tenderness, No hepatospenomegaly, No ma sses - Results Results: Laboratory Results WBC 3.8 x10^3/uL (4.8-10.8) L 05/09/24 04:35 RBC 2.71 10^6/uL (4.20-5.40) L 05/09/24 04:35 Hgb 8.1 g/dL (12.0-16.0) L 05/09/24 04:35 Hct 25.7 % (37.0-47.0) L 05/09/24 04:35 MCV 94.8 fL (81.0-99.0) 05/09/24 04:35 MCH 29.9 pg (27.0-31.0) 05/09/24 04:35 MCHC 31.5 g/dL (32.0-36.0) L 05/09/24 04:35 RDW 17.1 % (12.0-15.0) H 05/09/24 04:35 Plt Count 173 10^3/uL (130-450) 05/09/24 04:35 MPV 10.3 fL (7.9-10.8) 05/09/24 04:35 Neut # (Auto) 2.4 10^3/uL (1.5-6.6) 05/09/24 04:35 Lymph # (Auto) 0.8 10^3/uL (1.5-3.5) L 05/09/24 04:35 [place] # (Auto) 0.3 10^3/uL (0.0-1.0) 05/09/24 04:35 Eos # (Auto) 0.0 10^3/uL (0.0-0.7) 05/09/24 04:35 Baso # (Auto) 0.0 10^3/uL (0.0-0.1) 05/09/24 04:35 Absolute Nucleated RBC 0.03 x10^3/uL 05/09/24 04:35 Nucleated RBC % 0.8 /100WBC 05/09/24 04:35 Manual Slide Review Indicated 05/08/24 05:50 Platelet Estimate NORMAL (130-450,000) (NORMAL) 05/08/24 05:50 Platelet Morphology NORMAL APPEARANCE (NORMAL) 05/08/24 05:50 Sodium 141 mmol/L (135-145) 05/09/24 04:35 Potassium 4.4 mmol/L (3.5-4.5) 05/09/24 04:35 Chloride 109 mmol/L (101-111) 05/09/24 04:35 Carbon Dioxide 28 mmol/L (21-32) 05/09/24 04:35 Anion Gap 4.0 (6-13) L 05/09/24 04:35 BUN 23 mg/dL (6-20) H 05/09/24 04:35 Creatinine 0.7 mg/dL (0.6-1.3) 05/09/24 04:35 Estimated GFR (MDRD) 83 (>89) L 05/09/24 04:35 Glucose 87 mg/dL (74-104) 05/09/24 04:35 Lactic Acid 1.8 mmol/L (0.5-2.2) 05/05/24 13:52 Calcium 9.0 mg/dL (8.5-10.3) 05/09/24 04:35 Magnesium 1.8 mg/dL (1.7-2.3) 05/05/24 13:52 Total Bilirubin 0.6 mg/dL (0.2-1.0) 05/08/24 05:50 Direct Bilirubin 0.16 mg/dL (0.03-0.18) 05/08/24 05:50 Indirect Bilirubin 0.4 mg/dL 05/08/24 05:50 AST 45 IU/L (10-42) H 05/07/24 05:26 ALT 58 IU/L (10-60) 05/07/24 05:26 Alkaline Phosphatase 121 IU/L (42-121) 05/07/24 05:26 Total Protein 5.6 g/dL (6.4-8.9) L 05/07/24 05:26 Albumin 3.1 g/dL (3.2-5.5) L 05/07/24 05:26 Globulin 2.5 g/dL (2.1-4.2) 05/07/24 05:26 Albumin/Globulin Ratio 1.3 (1.0-2.2) 05/05/24 13:52 Lipase 12 U/L (11-82) 05/05/24 13:52 Vitamin D 25-Hydroxy 24.3 ng/mL (30.0-100.0) L 05/07/24 05:26 Urine Color DARK YELLOW 05/05/24 16:43 Urine Clarity HAZY (CLEAR) 05/05/24 16:43 Urine pH 5.5 PH (5.0-7.5) 05/05/24 16:43 Ur Specific [place] 1.025 (1.002-1.030) 05/05/24 16:43 Urine Protein TRACE mg/dL (NEGATIVE) 05/05/24 16:43 Urine Glucose (UA) 100 mg/dL (NEGATIVE) H 05/05/24 16:43 Urine Ketones 15 mg/dL (NEGATIVE) H 05/05/24 16:43 Urine Occult Blood MODERATE (NEGATIVE) H 05/05/24 16:43 Urine Nitrite POSITIVE (NEGATIVE) H 05/05/24 16:43 Urine Bilirubin SMALL (NEGATIVE) H 05/05/24 16:43 Urine Urobilinogen 0.2 (NORMAL) E.U./dL (NORMAL) 05/05/24 16:43 Ur Leukocyte Esterase NEGATIVE (NEGATIVE) 05/05/24 16:43 Urine RBC 11 /HPF (0-5) 05/05/24 16:43 Urine WBC 0-3 /HPF (0-5) 05/05/24 16:43 Ur Squamous Epith Cells FEW Squamous (<= Few) 05/05/24 16:43 Urine Bacteria Few /HPF (None Seen) 05/05/24 16:43 Ur Microscopic Review INDICATED 05/05/24 16:43 Urine Culture Comments INDICATED 05/05/24 16:43 Nasal Adenovirus (PCR) NOT DETECTED 05/05/24 15:50 Nasal B. parapertussis DNA (PCR) NOT DETECTED 05/05/24 15:50 Nasal Coronavir 229E PCR NOT DETECTED 05/05/24 15:50 Nasal Coronavir HKU1 PCR NOT DETECTED 05/05/24 15:50 Nasal Coronavir NL63 PCR NOT DETECTED 05/05/24 15:50 Nasal Coronavir OC43 PCR NOT DETECTED 05/05/24 15:50 Nasal Enterovir/Rhinovir PCR NOT DETECTED 05/05/24 15:50 Nasal Influenza B PCR NOT DETECTED 05/05/24 15:50 Nasal Influenza A PCR NOT DETECTED 05/05/24 15:50 Nasal Parainfluen 1 PCR NOT DETECTED 05/05/24 15:50 Nasal Parainfluen 2 PCR NOT DETECTED 05/05/24 15:50 Nasal Parainfluen 3 PCR NOT DETECTED 05/05/24 15:50 Nasal Parainfluen 4 PCR NOT DETECTED 05/05/24 15:50 Nasal RSV (PCR) NOT DETECTED 05/05/24 15:50 Nasal B.pertussis DNA PCR NOT DETECTED 05/05/24 15:50 Nasal C.pneumoniae (PCR) NOT DETECTED 05/05/24 15:50 Amina Human Metapneumo PCR NOT DETECTED 05/05/24 15:50 Nasal M.pneumoniae (PCR) NOT DETECTED 05/05/24 15:50 Nasal SARS-CoV-2 (PCR) NOT DETECTED 05/05/24 15:50 Sepsis Event Note (H) - Evaluation Current Stage of Sepsis: Sepsis Possible source of Sepsis: positive: Genitourinary - Sepsis Criteria Sepsis Criteria: Suspected or Documented, Recorded Temperature greater than 38.3C or Less than 36C, Recorded Heart Rate greater than 90 bpm
[2024-05-10] MEDS: hydrALAZINE INJ 20 MG/ML VIAL IVP ONE (00:34)
[2024-05-10 06:21] LABS: BASOPHILS % (AUTO) 0.4 %; EOSINOPHILS # (AUTO) 0.1 10^3/uL (0.0-0.7); EOSINOPHILS % (AUTO) 1.5 %; HCT - HEMATOCRIT 29.6 % (37.0-47.0); HGB - HEMOGLOBIN 9.2 g/dL (12.0-16.0); LYMPHOCYTES # (AUTO) 1.1 10^3/uL (1.5-3.5); LYMPHOCYTES % (AUTO) 21.4 %; MEAN CORPUSCULAR HEMOGLOBIN 29.4 pg (27.0-31.0); MEAN CORPUSCULAR HGB CONC 31.1 g/dL (32.0-36.0); MEAN CORPUSCULAR VOLUME 94.6 fL (81.0-99.0); MEAN PLATELET VOLUME 10.1 fL (7.9-10.8); MONOCYTES # (AUTO) 0.4 10^3/uL (0.0-1.0); MONOCYTES % (AUTO) 6.9 %; NEUTROPHILS # (AUTO) 3.4 10^3/uL (1.5-6.6); NRBC ABSOLUTE COUNT (AUTO) 0.04 x10^3/uL; NUCLEATED RED BLOOD CELLS AUTO 0.8 /100WBC; PLT - PLATELET COUNT 246 10^3/uL (130-450); RED BLOOD COUNT 3.13 10^6/uL (4.20-5.40); RED CELL DISTRIBUTION WIDTH 16.7 % (12.0-15.0); WHITE BLOOD COUNT 5.3 x10^3/uL (4.8-10.8)
[2024-05-10 06:40] LABS: CALCIUM 9.3 mg/dL (8.5-10.3); CREATININE 0.5 mg/dL (0.6-1.3); POTASSIUM 3.9 mmol/L (3.5-4.5)
[2024-05-10 07:11] LABS: PLATELET ESTIMATE, MANUAL INCREASED (>450,000) (NORMAL); PLATELET MORPHOLOGY NORMAL APPEARANCE (NORMAL)
[2024-05-10 07:12] LABS: DIFFERENTIAL COMMENT MANUAL=AUTO DIFF
--- NOTE | 2024-05-10 09:27 | PROVIDER PROGRESS NOTE ---
Subjective - Prog Note Date Prog Note Date: 05/10/24 Prog Note Time: 09:24 - Subjective Pt reports feeling: Improved Objective - Vital Signs/Intake & Output Vital Signs: Vital Signs x48h Temp Pulse Resp BP BP Pulse Ox 05/10/24 07:55 37.1 C 58 L 18 163/71 H 95 05/10/24 06:45 170/80 H 05/10/24 05:00 37.0 C 60 20 174/82 H 96 05/10/24 01:50 150/80 H 05/10/24 01:30 145/70 H Intake & Output: Intake & Output 05/07/24 05/08/24 05/09/24 05/10/24 23:59 23:59 23:59 23:59 Intake Total 2855 2070 530 Output Total 1650 700 Balance 1205 1370 530 - Lab Results Fish Bones: 05/10/24 05:57 05/10/24 05:57 Other Labs: Lab Results x24hrs 05/10/24 05/10/24 Range/Units 05:57 05:57 WBC 5.3 (4.8-10.8) x10^3/uL RBC 3.13 L (4.20-5.40) 10^6/uL Hgb 9.2 L (12.0-16.0) g/dL Hct 29.6 L (37.0-47.0) % MCV 94.6 (81.0-99.0) fL MCH 29.4 (27.0-31.0) pg MCHC 31.1 L (32.0-36.0) g/dL RDW 16.7 H (12.0-15.0) % Plt Count 246 (130-450) 10^3/uL MPV 10.1 (7.9-10.8) fL Neut # (Auto) 3.4 (1.5-6.6) 10^3/uL Lymph # (Auto) 1.1 L (1.5-3.5) 10^3/uL [place] # (Auto) 0.4 (0.0-1.0) 10^3/uL Eos # (Auto) 0.1 (0.0-0.7) 10^3/uL Baso # (Auto) 0.0 (0.0-0.1) 10^3/uL Absolute Nucleated RBC 0.04 x10^3/uL Band Neuts % (Manual) Not Reportable Abnorm Lymph % (Manual) Not Reportable Nucleated RBC % 0.8 /100WBC Neutrophils # (Manual) Not Reportable Lymphocytes # (Manual) Not Reportable Monocytes # (Manual) Not Reportable Eosinophils # (Manual) Not Reportable Basophils # (Manual) Not Reportable Differential Comment MANUAL=AUTO DIFF Platelet Estimate INCREASED (>450,000) (NORMAL) Platelet Morphology NORMAL APPEARANCE (NORMAL) Sodium 140 (135-145) mmol/L Potassium 3.9 (3.5-4.5) mmol/L Chloride 105 (101-111) mmol/L Carbon Dioxide 26 (21-32) mmol/L Anion Gap 9.0 (6-13) BUN 17 (6-20) mg/dL Creatinine 0.5 L (0.6-1.3) mg/dL Estimated GFR (MDRD) 122 (>89) Glucose 81 (74-104) mg/dL Calcium 9.3 (8.5-10.3) mg/dL - Other Results/Comments Other Results/Comments: Examination: Patient hip dressings are intact. Minimal pain with hip motion. Moves her toes well. Sensation intact. Patient sitting up eating breakfast while I am problems Laboratory: Hematocrit 30; hemoglobin 9.2 Sepsis Event Note (H) - Evaluation Current Stage of Sepsis: Sepsis Possible source of Sepsis: positive: Genitourinary - Sepsis Criteria Sepsis Criteria: Suspected or Documented, Recorded Temperature greater than 38.3C or Less than 36C, Recorded Heart Rate greater than 90 bpm Assessment/Plan - Problem List (1) Femoral neck fracture Impression: Doing well postoperatively Plan: Patient will be evaluated by physical therapy today. Likely she will be able to be discharged home either today or tomorrow. May be weightbearing as tolerated on this extremity while walker ambulating. Should follow-up in orthopedic clinic in about [address] Smyth for wound inspection and skin staple removal and x-rays. She should also be scheduled to see me in about a month's time for another clinic visit with pre-clinic set x-rays of her hip at that time as well. Qualifiers: Encounter type: initial encounter Fracture type: closed Laterality: right Qualified Code(s): S72.001A - Fracture of unspecified part of neck of right femur, initial encounter for closed fracture
--- NOTE | 2024-05-10 13:39 | PROVIDER PROGRESS NOTE ---
Assessment/Plan - Problem List (1) Femoral neck fracture Qualifiers: Encounter type: initial encounter Fracture type: closed Laterality: right Qualified Code(s): S72.001A - Fracture of unspecified part of neck of right femur, initial encounter for closed fracture Assessment/Plan: (1) Femoral neck fracture Qualifiers: Encounter type: initial encounter Fracture type: closed Laterality: right Qualified Code(s): S72.001A - Fracture of unspecified part of neck of right femur, initial encounter for closed fracture Assessment/Plan: --Postop day 3. --PT/OT --DVT ppx per Orthopedic surgery. They have opted for Aspirin 81 mg BID. (2) Choledocholithiasis Assessment/Plan: --MRCP showing evidence of choledocolithiasis. Discussed case with Marlen JAMES. Recommended semi-urgent scope on an outpatient basis. She will need a referral from her PCP. I have discussed this with the patient and her family. --Liver enzymes downtrending. No symptoms. (3) UTI (urinary tract infection) Qualifiers: Urinary tract infection type: acute cystitis Hematuria presence: with hematuria Qualified Code(s): N30.01 - Acute cystitis with hematuria Assessment/Plan: --Resolved. (4) Rheumatoid arthritis Qualifiers: Rheumatoid arthritis location: unspecified site Rheumatoid factor presence: unspecified presence Qualified Code(s): M06.9 - Rheumatoid arthritis, unspecified Assessment/Plan: * Will continue home meds Rinvoq and prednisone Dispo: Pending PT/OT assessment. Final disposition pending. She is medically stable. - Current Meds Current Meds: Current Medications Generic Name Dose Route Start Last Admin Trade Name Freq PRN Reason Stop Dose Admin Acetaminophen 1,000 mg 05/07/24 10:00 05/10/24 11:42 Acetaminophen 500 Mg Tablet PO 1,000 mg Q6H STEFANIE Administration Hydrocodone Bitart/Acetaminophen 1 tab 05/06/24 08:05 05/10/24 11:51 Hydrocod/Acetam 10 Mg/325 Mg Tablet PO 1 tab Q4H PRN Administration PAIN Alcohol 1 amp 05/07/24 21:00 05/10/24 08:00 Ethyl Alcohol 62% Swab Ampule AMINA 1 amp BID STEFANIE Administration Aspirin 81 mg 05/07/24 21:00 05/10/24 08:02 Aspirin Ec 81 Mg Tablet PO 81 mg BID STEFANIE Administration Calcium Carbonate/Glycine 500 mg 05/06/24 13:00 05/10/24 08:01 Calcium Carbonate Chew 500 Mg Tablet PO 500 mg BID STEFANIE Administration Celecoxib 200 mg 05/07/24 21:00 05/10/24 08:02 Celecoxib 100 Mg Capsule PO 200 mg BID STEFANIE Administration Cholecalciferol 5,000 unit 05/06/24 13:00 05/10/24 08:02 Cholecalciferol 5,000 Unit Capsule PO 5,000 unit DAILY STEFANIE Administration Escitalopram Oxalate 10 mg 05/06/24 09:00 05/10/24 08:01 Escitalopram 10 Mg Tablet PO 10 mg DAILY STEFANIE Administration Hydromorphone HCl 1 mg 05/06/24 08:05 05/07/24 18:51 Hydromorphone 0.5 Mg/0.5 Ml Syringe IVP 1 mg Q2H PRN Administration Severe Pain (Level 7-10) Ketorolac Tromethamine 15 mg 05/06/24 08:36 05/07/24 16:22 Ketorolac 15 Mg/Ml Vial IVP 05/11/24 08:35 15 mg Q6HR PRN Administration Severe Pain (Level 7-10) Morphine Sulfate 60 mg 05/06/24 16:00 05/10/24 06:03 Morphine Er 60 Mg Tablet PO 60 mg TID STEFANIE Administration Morphine Sulfate 45 mg 05/06/24 16:00 05/10/24 06:03 Morphine Er 15 Mg Tablet PO 45 mg TID STEFANIE Administration Oxycodone HCl 5 mg 05/07/24 09:26 05/08/24 09:31 Oxycodone 5 Mg Tablet PO 5 mg Q6HR PRN Administration Severe Breakthrough pain(8-10) Pantoprazole Sodium 40 mg 05/06/24 07:00 05/10/24 06:04 Pantoprazole 40 Mg Tablet PO 40 mg QDAC STEFANIE Administration Patient Own Med ( 1 each 05/06/24 09:00 05/10/24 08:01 Rinvoq 15 Mg Tab.Er. PO 1 each 24h) DAILY STEFANIE Administration Polyethylene Glycol 17 gm 05/06/24 11:00 05/10/24 08:03 Polyethylene Glycol 3350 17 Gm Packet PO Not Given DAILY STEFANIE Potassium Chloride 10 meq 05/05/24 21:00 05/10/24 08:01 Potassium Chloride 10 Meq Capsule PO 10 meq BID STEFANIE Administration Prednisone 5 mg 05/06/24 09:00 05/10/24 08:02 Prednisone 5 Mg Tablet PO 5 mg DAILY STEFANIE Administration Ropinirole HCl 0.25 mg 05/06/24 12:00 05/10/24 08:02 Ropinirole 0.25 Mg Tablet PO 0.25 mg DAILY STEFANIE Administration Scopolamine HBr 1 patch 05/06/24 09:00 05/09/24 09:49 Scopolamine Patch TOP 1 patch Q3D STEFANIE Administration Sodium Chloride 10 ml 05/07/24 17:00 05/10/24 08:02 Sodium Chloride Flush 0.9% 10 Ml Syringe IVP 10 ml 0100,0900,1700 STEFANIE Administration Sodium Chloride 10 ml 05/07/24 09:26 05/07/24 18:51 Sodium Chloride Flush 0.9% 10 Ml Syringe IVP 10 ml PRN PRN Administration NEEDED PER PROVIDER ORDERS - Lab Result Fish Bone Diagrams: 05/10/24 05:57 05/10/24 05:57 - Additional Planning My Orders: My Active Orders 05/11/24 05:00 BMP - BASIC METABOLIC PANEL [CHEM] DAILYLAB CBC [CBC - COMP BLD CT W/AUTO DIFF] [HEME] DAILYLAB Subjective - Subjective Patient Reports: Feeling Better, Resting Comfortably, No Complaints Objective Vital Signs: Vital Signs - 24 hr 05/09/24 05/09/24 05/09/24 17:00 17:40 21:30 Temperature 36.8 C 37.1 C Heart Rate [ 52 L 69 52 L Brachial] Respiratory 20 20 Rate Blood Pressure Blood Pressure [Left Brachial artery] Blood Pressure 150/67 H 128/58 L 180/71 H [Right Brachial artery] O2 Saturation 95 93 05/09/24 05/10/24 05/10/24 23:32 00:34 00:40 Temperature Heart Rate [ 55 L Brachial] Respiratory Rate Blood Pressure 167/69 H Blood Pressure [Left Brachial artery] Blood Pressure 183/67 H 108/71 [Right Brachial artery] O2 Saturation 94 05/10/24 05/10/24 05/10/24 00:50 01:00 01:15 Temperature Heart Rate [ Brachial] Respiratory Rate Blood Pressure Blood Pressure [Left Brachial artery] Blood Pressure 181/69 H 183/68 H 150/70 H [Right Brachial artery] O2 Saturation 05/10/24 05/10/2405/10/24 01:30 01:50 05:00 Temperature 37.0 C Heart Rate [ 60 Brachial] Respiratory 20 Rate Blood Pressure Blood Pressure 174/82 H [Left Brachial artery] Blood Pressure 145/70 H 150/80 H [Right Brachial artery] O2 Saturation 96 05/10/24 05/10/24 06:45 07:55 Temperature 37.1 C Heart Rate [ 58 L Brachial] Respiratory 18 Rate Blood Pressure Blood Pressure 163/71 H [Left Brachial artery] Blood Pressure 170/80 H [Right Brachial artery] O2 Saturation 95 Oxygen O2 Source Room air I&O (Last 24 Hrs): Intake and Output Totals x24h 05/08/24 05/09/24 05/10/24 23:59 23:59 23:59 Intake Total 2070 530 720 Output Total 700 Balance 1370 530 720 General: Alert, Oriented x3, Cooperative, No acute distress Neuro: Alert, CN 2-12 Grossly Intact, Oriented Times 3 Cardiovascular: Regular rate, Normal S1, Normal S2, No murmurs Respiratory: Chest non-tender, No respiratory distress, Breath sounds nml Abdomen: Normal bowel sounds, Soft, No tenderness, No hepatospenomegaly, No masses - Results Results: Laboratory Results WBC 5.3 x10^3/uL (4.8-10.8) 05/10/24 05:57 RBC 3.13 10^6/uL (4.20-5.40) L 05/10/24 05:57 Hgb 9.2 g/dL (12.0-16.0) L 05/10/24 05:57 Hct 29.6 % (37.0-47.0) L 05/10/24 05:57 MCV 94.6 fL (81.0-99.0) 05/10/24 05:57 MCH 29.4 pg (27.0-31.0) 05/10/24 05:57 MCHC 31.1 g/dL (32.0-36.0) L 05/10/24 05:57 RDW 16.7 % (12.0-15.0) H 05/10/24 05:57 Plt Count 246 10^3/uL (130-450) 05/10/24 05:57 MPV 10.1 fL (7.9-10.8) 05/10/24 05:57 Neut # (Auto) 3.4 10^3/uL (1.5-6.6) 05/10/24 05:57 Lymph # (Auto) 1.1 10^3/uL (1.5-3.5) L 05/10/24 05:57 [place] # (Auto) 0.4 10^3/uL (0.0-1.0) 05/10/24 05:57 Eos # (Auto) 0.1 10^3/uL (0.0-0.7) 05/10/24 05:57 Baso # (Auto) 0.0 10^3/uL (0.0-0.1) 05/10/24 05:57 Absolute Nucleated RBC 0.04 x10^3/uL 05/10/24 05:57 Band Neuts % (Manual) Not Reportable 05/10/24 05:57 Abnorm Lymph % (Manual) Not Reportable 05/10/24 05:57 Nucleated RBC % 0.8 /100WBC 05/10/24 05:57 Neutrophils # (Manual) Not Reportable 05/10/24 05:57 Lymphocytes # (Manual) Not Reportable 05/10/24 05:57 Monocytes # (Manual) Not Reportable 05/10/24 05:57 Eosinophils # (Manual) Not Reportable 05/10/24 05:57 Basophils # (Manual) Not Reportable 05/10/24 05:57 Differential Comment MANUAL=AUTO DIFF 05/10/24 05:57 Manual Slide Review Indicated 05/08/24 05:50 Platelet Estimate INCREASED (>450,000) (NORMAL) 05/10/24 05:57 Platelet Morphology NORMAL APPEARANCE (NORMAL) 05/10/24 05:57 Sodium 140 mmol/L (135-145) 05/10/24 05:57 Potassium 3.9 mmol/L (3.5-4.5) 05/10/24 05:57 Chloride 105 mmol/L (101-111) 05/10/24 05:57 Carbon Dioxide 26 mmol/L (21-32) 05/10/24 05:57 Anion Gap 9.0 (6-13) 05/10/24 05:57 BUN 17 mg/dL (6-20) 05/10/24 05:57 Creatinine 0.5 mg/dL (0.6-1.3) L 05/10/24 05:57 Estimated GFR (MDRD) 122 (>89) 05/10/24 05:57 Glucose 81 mg/dL (74-104) 05/10/24 05:57 Lactic Acid 1.8 mmol/L (0.5-2.2) 05/05/24 13:52 Calcium 9.3 mg/dL (8.5-10.3) 05/10/24 05:57 Magnesium 1.8 mg/dL (1.7-2.3) 05/05/24 13:52 Total Bilirubin 0.6 mg/dL (0.2-1.0) 05/08/24 05:50 Direct Bilirubin 0.16 mg/dL (0.03-0.18) 05/08/24 05:50 Indirect Bilirubin 0.4 mg/dL 05/08/24 05:50 AST 45 IU/L (10-42) H 05/07/24 05:26 ALT 58 IU/L (10-60) 05/07/24 05:26 Alkaline Phosphatase 121 IU/L (42-121) 05/07/24 05:26 Total Protein 5.6 g/dL (6.4-8.9) L 05/07/24 05:26 Albumin 3.1 g/dL (3.2-5.5) L 05/07/24 05:26 Globulin 2.5 g/dL (2.1-4.2) 05/07/24 05:26 Albumin/Globulin Ratio 1.3 (1.0-2.2) 05/05/24 13:52 Lipase 12 U/L (11-82) 05/05/24 13:52 Vitamin D 25-Hydroxy 24.3 ng/mL (30.0-100.0) L 05/07/24 05:26 Urine Color DARK YELLOW 05/05/24 16:43 Urine Clarity HAZY (CLEAR) 05/05/24 16:43 Urine pH 5.5 PH (5.0-7.5) 05/05/24 16:43 Ur Specific [place] 1.025 (1.002-1.030) 05/05/24 16:43 Urine Protein TRACE mg/dL (NEGATIVE) 05/05/24 16:43 Urine Glucose (UA) 100 mg/dL (NEGATIVE) H 05/05/24 16:43 Urine Ketones 15 mg/dL (NEGATIVE) H 05/05/24 16:43 Urine Occult Blood MODERATE (NEGATIVE) H 05/05/24 16:43 Urine Nitrite POSITIVE (NEGATIVE) H 05/05/24 16:43 Urine Bilirubin SMALL (NEGATIVE) H 05/05/24 16:43 Urine Urobilinogen 0.2 (NORMAL) E.U./dL (NORMAL) 05/05/24 16:43 Ur Leukocyte Esterase NEGATIVE (NEGATIVE) 05/05/24 16:43 Urine RBC 11 /HPF (0-5) 05/05/24 16:43 Urine WBC 0-3 /HPF (0-5) 05/05/24 16:43 Ur Squamous Epith Cells FEW Squamous (<= Few) 05/05/24 16:43 Urine Bacteria Few /HPF (None Seen) 05/05/24 16:43 Ur Microscopic Review INDICATED 05/05/24 16:43 Urine Culture Comments INDICATED 05/05/24 16:43 Nasal Adenovirus (PCR) NOT DETECTED 05/05/24 15:50 Nasal B. parapertussis DNA (PCR) NOT DETECTED 05/05/24 15:50 Nasal Coronavir 229E PCR NOT DETECTED 05/05/24 15:50 Nasal Coronavir HKU1 PCR NOT DETECTED 05/05/24 15:50 Nasal Coronavir NL63 PCR NOT DETECTED 05/05/24 15:50 Nasal Coronavir OC43 PCR NOT DETECTED 05/05/24 15:50 Nasal Enterovir/Rhinovir PCR NOT DETECTED 05/05/24 15:50 Nasal Influenza B PCR NOT DETECTED 05/05/24 15:50 Nasal Influenza A PCR NOT DETECTED 05/05/24 15:50 Nasal Parainfluen 1 PCR NOT DETECTED 05/05/24 15:50 Nasal Parainfluen 2 PCR NOT DETECTED 05/05/24 15:50 Nasal Parainfluen 3 PCR NOT DETECTED 05/05/24 15:50 Nasal Parainfluen 4 PCR NOT DETECTED 05/05/24 15:50 Nasal RSV (PCR) NOT DETECTED 05/05/24 15:50 Nasal B.pertussis DNA PCR NOT DETECTED 05/05/24 15:50 Nasal C.pneumoniae (PCR) NOT DETECTED 05/05/24 15:50 Amina Human Metapneumo PCR NOT DETECTED 05/05/24 15:50 Nasal M.pneumoniae (PCR) NOT DETECTED 05/05/24 15:50 Nasal SARS-CoV-2 (PCR) NOT DETECTED 05/05/24 15:50 Sepsis Event Note (H) - Evaluation Current Stage of Sepsis: Sepsis Possible source of Sepsis: positive: Genitourinary - Sepsis Criteria Sepsis Criteria: Suspected or Documented, Recorded Temperature greater than 38.3C or Less than 36C, Recorded Heart Rate greater than 90 bpm
[2024-05-11] MEDS: amLODIPine 5 MG TABLET PO SCH (09:12)
--- NOTE | 2024-05-11 12:32 | Discharge Plan ---
Discharge Plan Problem Reviewed?: Yes Disposition: Home Health Service Condition: Stable Prescriptions: Aspirin EC [Ecotrin] 81 mg PO BID 30 Days #60 tab amLODIPine [Norvasc] 5 mg PO DAILY #30 tab Diet: Regular Activity Restrictions: Activity as Tolerated Additional Instructions or Follow Up instructions: Please follow up with your PCP. You will need a referral to gastroenterology for [facility] to perform an ERCP for your choledocolithiasis. You have a 2.2 cm nodule on your thyroid. Please ask your PCP for an ultrasound of your thyroid. Follow-Up Care: Home Health - PT, Home Health - OT No Smoking: If you smoke, Please STOP! Call for help.
--- NOTE | 2024-05-11 12:38 | DISCHARGE SUMMARY ---
"Discharge Summary Admit Date: 05/05/24 Discharge Date: 05/11/24 Discharging Provider: Xander Paredes Code Status: Attempt Resuscitation Condition at Discharge: Good Discharge Disposition: Home Health Service - HPI History of Present Illness: pt with s/p fall onto R side at 1 am today when she got up to use the bathroom. states she got up too quickly and her leg was asleep when she beared weight on it, and fell. no head injury to loc. she was able to stand but had pain. went to urgent care where imaging was unclear for fracture and pt had fever of 101 but no other symptoms. ua was positive. given her symptoms and pain, she was transferred to ER for evaluation. pt has h/o L hip surgery. h/o RA on prednisone and rinvoq. no chest pain fevers chills. - CONSULTS | PROCEDURES Consultations: Orthopedic surgery - HOSPITAL COURSE Hospital Course: Patient is a 68-year-old female who presented to the ED after sustaining a fall resulting in a mildly impacted right hip fracture. Patient was admitted and eval by orthopedic surgery who performed a closed reduction with screw fixation on her fracture. Her postoperative period was uncomplicated. She was eval by physical therapy and Occupational Therapy who had recommended chcf however patient opted for home health. Incidentally, she was noted to have a choledocholithiasis. This was followed up with an MRCP which confirmed this diagnosis. Case was discussed with [facility] who had recommended an outpatient ERCP. I recommended that she consult with her PCP for a referral to [facility]. Patient also has a incidental finding of a nodule in her thyroid which will need ultrasound follow-up. - ALLERGIES Allergies/Adverse Reactions: Allergies Allergy/AdvReac Type Severity Reaction Status Date / Time tetanus toxoid, adsorbed AdvReac Intermediate Edema Verified 05/05/24 14:45 - MEDICATIONS Home Medications: Ambulatory Orders Medication Instructions Recorded Confirmed HYDROcodone/ACET 10/325 [Weinert 10 1 each PO Q4-6H PRN 11/01/13 05/05/24 mg/325 mg] Morphine Sulfate [Ms Contin] 100 mg PO TID 09/17/17 05/05/24 predniSONE [Prednisone] 5 mg PO DAILY 09/17/17 05/05/24 Furosemide [Lasix] 20 mg PO DAILY 06/05/21 05/05/24 Upadacitinib [Rinvoq] 15 mg ORAL DAILY 06/05/21 05/05/24 Zolpidem [Ambien] 5 mg PO HS PRN 06/05/21 05/05/24 Omeprazole 20 mg PO DAILY 05/05/24 05/05/24 Potassium Chloride 10 meq PO BID 05/05/24 05/05/24 Restless Leg (Homeopathic) 1 tab PO DAILY 05/06/24 Aspirin EC [Ecotrin] 81 mg PO BID 30 Days #60 tab 05/11/24 amLODIPine [Norvasc] 5 mg PO DAILY #30 tab 05/11/24 - PHYSICAL EXAM AT DISCHARGE General Appearance: positive: No acute distress, Alert Respiratory: positive: Chest non-tender, No respiratory distress Cardiovascular: positive: Regular rate & rhythm, No murmur, No gallop Neurologic/Psychiatric: positive: Oriented x3, CN's nml (2-12) - LABS Result Diagrams: 05/10/24 05:57 05/10/24 05:57 - SEPSIS Current Stage of Sepsis: Sepsis Possible source of Sepsis: Genitourinary Sepsis Criteria: Suspected or Documented, Recorded Temperature greater than 38.3C or Less than 36C, Recorded Heart Rate greater than 90 bpm - FOLLOW UP Follow Up: Follow up with PCP in 3-5 days. - TIME SPENT Time Spent in Discharge (Minutes): 30"
[2024-05-11 13:40] VITALS: BP 113/54; O2SAT 98
--- NOTE | 2024-05-12 12:31 | ANESTHESIA POST OP EVALUATION ---
Anesthesia Post Eval - Post Anesthesia Eval Vitals: Last Vital Signs Temp 36.5 C 05/11/24 13:34 Pulse 78 05/11/24 13:34 Resp 18 05/11/24 13:34 BP 113/54 L 05/11/24 13:34 Pulse Ox 98 05/11/24 13:34 O2 Flow Rate 1 05/07/24 15:23 CV Function Including HR & BP: Stable Pain Control: Satisfactory Nausea & Vomiting: Negative Mental Status: Baseline Respiratory Status: Airway Patent Hydration Status: Satisfactory Anesthesia Complications: None
== END 2024-05-11 13:35 | disposition home health service (06) | DRG 853 ==
LOC: ED 14:17 → MS2 19:47
PROVIDERS: ADMIT Student in an Organized Health Care Education/Training Program; ATTEND Family Medicine
PROC: 0QS634Z Reposition Right Upper Femur with Internal Fixation Device, Percutaneous Approach (ICD-10-PCS; principal; 2024-05-07 07:30)
DX: S72.011A Unspecified intracapsular fracture of right femur, initial encounter for closed fracture (principal); S22.43XA Multiple fractures of ribs, bilateral, initial encounter for closed fracture; S20.219A Contusion of unspecified front wall of thorax, initial encounter; W01.0XXA Fall on same level from slipping, tripping and stumbling without subsequent striking against object, initial encounter; A41.9 Sepsis, unspecified organism; N39.0 Urinary tract infection, site not specified; S72.001A Fracture of unspecified part of neck of right femur, initial encounter for closed fracture; R50.9 Fever, unspecified; Z20.822 Contact with and (suspected) exposure to COVID-19; D84.9 Immunodeficiency, unspecified; N30.01 Acute cystitis with hematuria; K80.50 Calculus of bile duct without cholangitis or cholecystitis without obstruction; W19.XXXA Unspecified fall, initial encounter; M19.90 Unspecified osteoarthritis, unspecified site; M06.9 Rheumatoid arthritis, unspecified; F17.200 Nicotine dependence, unspecified, uncomplicated; E04.1 Nontoxic single thyroid nodule; Z79.52 Long term (current) use of systemic steroids; Z79.899 Other long term (current) drug therapy
CPT/HCPCS: 36415; 71250; 73700; 74181; 80048; 80053; 80076; 81001; 82247; 82248; 82306; 83605; 83690; 83735; 85025; 87040; 87086; 87633; 96374; 97162; 97166; 97530; 97535; 99285; A9270; C1713; J0131; J1170; J2372; J2795; J3490; J7120; J7512; 81003

== ENCOUNTER 2024-05-24 09:52 | Outpatient (CLI) | payer MEDICARE ==
--- NOTE | 2024-05-24 16:49 | XRAY Report ---
PROCEDURE: Hip w/Pelvis 2-3V RT INDICATIONS: PAIN IN RIGHT HIP TECHNIQUE: 3 views of the hip were acquired. COMPARISON: X-ray pelvis 05/05/2024. FINDINGS: Bones: Severe osteopenia. Orthopedic hardware seen in the proximal right femur. No perihardware lucen cy. Fracture of the right proximal femur is poorly visualized on the provided images. Soft tissues: Large amount of bowel gas noted. IMPRESSION: Right hip orthopedic hardware in place Reviewed by: Genaro Gabriel MD on 05/24/2024 4:47 PM PDT Approved by: Genaro Gabriel MD on 05/24/2024 4:47 PM PDT Station ID: [id number]
== END 2024-05-24 09:53 | disposition home or self-care (01) ==
LOC: DI 09:52
PROVIDERS: ATTEND Orthopaedic Surgery
DX: M25.551 Pain in right hip (principal)

== ENCOUNTER 2024-06-25 09:10 | Outpatient (CLI) | payer MEDICARE ==
--- NOTE | 2024-06-29 10:04 | XRAY Report ---
PROCEDURE: Hip w/Pelvis 2-3V RT INDICATIONS: FRACTURE TECHNIQUE: 2 views of the hip were acquired. COMPARISON: 05/24/2024 FINDINGS: Bones: Generalized decreased osseous mineralization present. Healing right femoral neck fracture sup ported by threaded screws in good position unchanged from the prior. Moderate joint space narrowing. Total left hip arthroplasty. Soft tissues: No suspicious soft tissue calcifications or masses. IMPRESSION: Healing instrumented right femoral neck fracture. Osteopenia. Reviewed by: Joe Zepeda MD on 06/29/2024 9:02 AM EMILY Approved by: Joe Zepeda MD on 06/29/2024 9:02 AM EMILY Station ID: [id number]
== END 2024-06-25 09:11 | disposition home or self-care (01) ==
LOC: DI.N 09:10
PROVIDERS: ATTEND Orthopaedic Surgery
DX: S72.011D Unspecified intracapsular fracture of right femur, subsequent encounter for closed fracture with routine healing (principal); M85.88 Other specified disorders of bone density and structure, other site; R30.0 Dysuria; N39.0 Urinary tract infection, site not specified
CPT/HCPCS: 87086

== ENCOUNTER 2024-07-21 08:00 | Outpatient (CLI) | payer MEDICARE ==
[2024-07-21 11:55] LABS: BASOPHILS % (AUTO) 0.7 %; EOSINOPHILS # (AUTO) 0.1 10^3/uL (0.0-0.7); EOSINOPHILS % (AUTO) 1.3 %; HCT - HEMATOCRIT 35.4 % (37.0-47.0); HGB - HEMOGLOBIN 11.1 g/dL (12.0-16.0); LYMPHOCYTES # (AUTO) 0.8 10^3/uL (1.5-3.5); LYMPHOCYTES % (AUTO) 17.8 %; MEAN CORPUSCULAR HEMOGLOBIN 29.7 pg (27.0-31.0); MEAN CORPUSCULAR HGB CONC 31.4 g/dL (32.0-36.0); MEAN CORPUSCULAR VOLUME 94.7 fL (81.0-99.0); MEAN PLATELET VOLUME 10.5 fL (7.9-10.8); MONOCYTES # (AUTO) 0.4 10^3/uL (0.0-1.0); MONOCYTES % (AUTO) 8.9 %; NEUTROPHILS # (AUTO) 3.3 10^3/uL (1.5-6.6); NEUTROPHILS % (AUTO) 70.9 %; PLT - PLATELET COUNT 237 10^3/uL (130-450); RED BLOOD COUNT 3.74 10^6/uL (4.20-5.40); RED CELL DISTRIBUTION WIDTH 14.3 % (12.0-15.0); WHITE BLOOD COUNT 4.6 x10^3/uL (4.8-10.8)
[2024-07-21 12:11] LABS: ALBUMIN 4.1 g/dL (3.2-5.5); ALBUMIN/GLOBULIN RATIO 1.9 (1.0-2.2); BILIRUBIN,TOTAL 0.7 mg/dL (0.2-1.0); CALCIUM 9.6 mg/dL (8.5-10.3); CREATININE 0.6 mg/dL (0.6-1.3); POTASSIUM 3.5 mmol/L (3.5-4.5); TOTAL PROTEIN 6.3 g/dL (6.4-8.9)
== END 2024-07-21 23:59 | disposition home or self-care (01) ==
LOC: LAB.N 08:00
PROVIDERS: ATTEND Registered Nurse
DX: K80.50 Calculus of bile duct without cholangitis or cholecystitis without obstruction (principal)
CPT/HCPCS: 36415; 80053; 83690; 85025

== ENCOUNTER 2024-07-22 07:55 | Outpatient (CLI) | payer MEDICARE ==
--- NOTE | 2024-07-22 16:31 | XRAY Report ---
PROCEDURE: Abdomen 1 V INDICATIONS: CHOLEDOCHOLITHIASIS TECHNIQUE: One view of the abdomen acquired. COMPARISON: None. FINDINGS: Surgical changes and devices: Pressures as left hip arthroplasty and right hip fixation hardware. Rig ht upper quadrant surgical clips. Biliary stents in place.. Bowel: Bowel gas pattern is normal. Soft tissues: No suspicious abdominal calcifications. Visualized solid organ contours appear normal in size. Bones: No suspicious bony lesions. Degenerative changes with levoscoliotic curvature. IMPRESSION: No acute abdominal pathology. Biliary stents in place. Reviewed by: Gamal Cuba MD on 07/22/2024 4:30 PM PDT Approved by: Gamal Cuba MD on 07/22/2024 4:30 PM PDT Station ID: [id number]
== END 2024-07-22 07:56 | disposition home or self-care (01) ==
LOC: DI 07:55
PROVIDERS: ATTEND Student in an Organized Health Care Education/Training Program
DX: K80.50 Calculus of bile duct without cholangitis or cholecystitis without obstruction (principal)